=== PATIENT | male | born 1945 | race Caucasian/White ===

== ENCOUNTER 2016-12-26 08:21 | Observation (INO) ==
[2016-12-26] MEDS ORDERED: SODIUM CHLORIDE 0.9% 2,000 ML IV STA (08:45)
--- NOTE | 2016-12-26 08:48 | Emergency Department Note ---
Arrival - Arrival Chief Complaint: Syncope Stated Complaint: Vomiting, Fainting (chemo patient) ED Nursing Triage Note: FAMILY C/O SYNCOPAL EPISODE WHILE WORKING IN THE YARD THIS MORNING. PT BECAME DIAPHORETIC WITH NAUSEA AND VOMITING. PT BEGAN CHEMO TREATMENTS THIS WEEK WITH DR HAMMER. Mode of Arrival: Wheelchair Time Seen by Provider: 12/26/16 08:45 - History of Present Illness HPI Narrative: Patient is a 71-year-old white male who became very weak while walking around in his yard this morning. Patient broke out in a sweat and had a near syncopal episode. He took everyone in the family getting him up get him in the car and getting here to the emergency room. Patient states he has not had any pain or discomfort anywhere. He has not had any fever or chills. He vomited multiple times but there is no history of hematemesis and is not had any melena. Patient does have a history of CLL and last week 8 chemotherapy because of a decline in his hematocrit and hemoglobin. He had a wonderful day yesterday and states he did not have any trouble at all. Patient states he got nauseated early this morning. He denies any chest pain and is not perceived any palpitations. He is diffusely weak and denies any lateralizing symptoms whatsoever. Does not have any heartburn, indigestion or abdominal pain. Allergies/Adverse Reactions: Allergies Allergy/AdvReac Type Severity Reaction Status Date / Time No Known Allergies Allergy Verified 12/26/16 08:29 Review of System - Review of System Constitutional: Present: diaphoresis, weakness. Absent: chills, fever Eyes: Absent: pain, vision change Head/Ears/Nose/Throat: Absent: earache, nasal drainage Respiratory: Absent: cough, wheezing Cardiovascular: Absent: chest pain, palpitations, dyspnea on exertion Gastrointestinal: Present: nausea, vomiting. Absent: diarrhea, hematemesis, melena, hematochezia Genitourinary male: Absent: dysuria, frequency, hematuria Musculoskeletal: Absent: back pain, neck pain Skin: Absent: rash, lesions Neurological: Present: weakness (Diffuse). Absent: headache, numbness, paresthesias, confusion Psychiatric: Absent: anxiety, depression Endocrine: Present: fatigue. Absent: polydipsia, polyuria Hematological/Lymphatic: Absent: easy bleeding, easy bruising Medical,Surgical,& Family Hx - Medical History Other: History of: Cancer (CLL) - Surgical History Surgical History: noncontributory - Family History Family History: noncontributory - Social History Smoking Status: Never smoker Frequency of Alcohol Use: None Type of Drug Use: None Exam Vital Signs: Vital Signs Temperature 96.0 F L 12/26/16 08:24 Pulse Rate 55 L 12/26/16 08:54 Respiratory Rate 20 12/26/16 08:54 Blood Pressure 91/60 12/26/16 08:54 O2 Sat by Pulse Oximetry 95 12/26/16 08:54 - General General appearance: alert, in distress (Patient is pale and slightly diaphoretic ) - Head Head exam: Present: normocephalic - Eye Eye exam: Present: PERRL, EOMI - ENT ENT exam: Present: normal exam, normal oropharynx, mucous membranes moist - Neck Neck exam: Present: normal inspection, full ROM - Chest Chest inspection: Present: normal inspection - Respiratory Respiratory exam: Present: normal lung sounds bilaterally. Absent: rales, respiratory distress - Cardiovascular Cardiovascular exam: Present: regular rate, normal rhythm, normal heart sounds. Absent: murmur - Abdominal Exam Abdominal exam: Present: soft, normal bowel sounds. Absent: tenderness - Extremities Exam Extremities exam: Present: normal inspection, full ROM. Absent: tenderness - Back Exam Back exam: Present: normal inspection, full ROM - Neurological Exam Neurological exam: Present: alert, oriented X3, CN II-XII intact. Absent: motor sensory deficit - Psychiatric Psychiatric exam: Present: normal affect - Skin Skin exam: Present: diaphoresis Course Course Narrative: Patient's clinical presentation, laboratory and radiograph findings were discussed with Dr. Hammer. Patient be admitted to his services. Blood cultures were obtained. Results - Labs CBC & BMP: 12/26/16 08:58 12/26/16 08:58 Lab Results: I have reviewed the patients labs - EKG EKG results: interpreted by MADINA, no acute changes EKG shows: bradycardia (Sinus bradycardia 55 bpm) - Diagnostic Findings Procedure: Chest x-ray: report reviewed by me (Bibasilar atelectasis) Disposition Clinical Impression: Near syncope, Hypotension Case discussed with: patient, patient's family Disposition: Still a Patient Condition: Stable Time of Disposition: 09:56
--- NOTE | 2016-12-26 08:53 | EKG Report ---
Stationary ECG Study [facility] ER Test Date: 12/26/2016 8:51:52 AM Pat Name: VIRGINIA MORALES Department: Room: Gender: M Healthcare Social Worker: : 1945 Requested by: Frankie Tee Order Number: [id number] Elizabeth MD: FABIO MONCADA Intervals [place] Rate: 55 P: 35 MS: 169 QRS: 54 QRSD: 101 T: 53 QT: 475 QTc: 464 Interpretive Statements SINUS RHYTHM PROLONGED QT INTERVAL Electronically Signed On 12-26-16 10:10:21 CDT by FABIO MONCADA [email or web address]
--- NOTE | 2016-12-26 08:59 | XRay Report ---
Portable chest Date: 12/26/2016 Clinical history: Shortness of breath Comparison: None Technique: Portable AP sitting chest Findings: The heart is borderline in size with calcification in aortic knob. Expiratory chest with atelectasis at the left lung base. Degenerative changes are noted. Impression: Limited expiratory chest with atelectasis at the left lung base. The heart is borderline in size. PROCEDURE INTERPRETED AT [facility] DEPARTMENT OF RADIOLOGY Final Report Signed by: Dr. Sherrell Webber
[2016-12-26 09:02] LABS: Basophils % 0.5 % (0.0-0.8); Eosinophils % 0.5 % (0.00-10.9); Hemoglobin 10.3 GM/DL (14.0-18.0); Immature Granulocytes % 0.5 %; Immature Granulocytes Absolute 0.01 #; Lymphocytes # 1.1 10*3/uL (1.4-4.0); Lymphocytes % 52.7 % (21.2-54.2); Mean Corpuscular HGB Conc 34.3 GM/DL (32-36); Mean Corpuscular Hemoglobin 34 PG (27-34); Mean Corpuscular Volume 100.3 FL (87-102); Mean Platelet Volume 9.6 FL (9.6-12.0); Monocytes # 0.1 10*3/uL (0.11-0.8); Monocytes % 2.9 % (1.7-12.7); Neutrophils # 0.9 10*3/uL (1.4-7.4); Neutrophils % 42.9 % (38.7-73.9); Red Blood Count 2.99 MC/CUMM (3.8-5.5); Red Cell Distribution Width 15.7 % (9.3-17.3); White Blood Count 2.1 T/CUMM (4-12)
[2016-12-26 09:04] LABS: Platelet Count 54 T/CUMM (130-400)
[2016-12-26 09:19] LABS: Hypochromasia 1+; Platelet Estimate Decreased
[2016-12-26 09:41] LABS: Alanine Aminotransferase 25 U/L (16-61); Albumin 3.4 G/DL (3.4-5.0); Alkaline Phosphatase 84 U/L (45-117); Aspartate Amino Transferase 26 U/L (0-37); Blood Urea Nitrogen 28 MG/DL (7-18); Calcium 8.6 MG/DL (8.5-10.1); Glucose 158 MG/DL (74-106); Osmolality,Calculated 287.4 MOS/KG (273-304); Potassium 3.7 MMOL/L (3.5-5.1); Sodium 140 MMOL/L (136-145); Total Protein 7.4 G/DL (6.4-8.3); Troponin I Only < 0.015 NG/ML (0.00-0.045)
[2016-12-26] MEDS ORDERED: guaiFENesin 200 MG/10 ML UDCUP PO PRN (09:56)
[2016-12-26] MEDS ORDERED: diphenhydrAMINE CAP 25 MG CAPSULE PO PRN (09:56)
[2016-12-26] MEDS ORDERED: ACETAMINOPHEN 325 MG TABLET PO PRN (09:56)
[2016-12-26] MEDS ORDERED: ALUMINUM/MAGNES/SIMETH MAX STR 30 ML UDCUP PO PRN (09:56)
[2016-12-26] MEDS ORDERED: MAGNESIUM HYDROXIDE SUSP 30 ML UDCUP PO PRN (09:56)
[2016-12-26] MEDS ORDERED: chlorproMAZINE INJ 50 MG in SODIUM CHLORIDE 0.9% 100 ML IV PRN (09:56)
[2016-12-26] MEDS ORDERED: ONDANSETRON 4 MG/2 ML VIAL IV PRN (09:56)
[2016-12-26] MEDS ORDERED: chlorproMAZINE 25 MG TABLET PO PRN (09:56)
[2016-12-26] MEDS ORDERED: chlorproMAZINE INJ 25 MG in SODIUM CHLORIDE 0.9% 100 ML IV PRN (09:56)
[2016-12-26] MEDS ORDERED: LOPERAMIDE 2 MG CAPSULE PO PRN ×2 (09:56)
[2016-12-26] MEDS ORDERED: TEMAZEPAM 7.5 MG CAPSULE PO PRN (09:56)
[2016-12-26] MEDS ORDERED: MYLANTA/LIDO VISC 2:1 300 ML BOTTLE SWISH/SWAL PRN (09:56)
[2016-12-26] MEDS ORDERED: PROMETHAZINE INJ 25 MG in SODIUM CHLORIDE 0.9% 50 ML IV PRN (09:56)
[2016-12-26] MEDS ORDERED: BENZTROPINE 2 MG/2 ML AMP IV PRN (09:56)
[2016-12-26] MEDS ORDERED: MYLANTA/LIDO VISC 2:1 300 ML BOTTLE SWISH/SPIT PRN (09:56)
[2016-12-26] MEDS ORDERED: LACTULOSE 20 GM/30 ML UDCUP PO PRN (09:56)
[2016-12-26] MEDS ORDERED: ONDANSETRON 4 MG/2 ML VIAL IV STA (10:15)
[2016-12-26] MEDS ORDERED: ONDANSETRON 4 MG/2 ML VIAL ONE (10:17)
[2016-12-26 10:32] LABS: Magnesium 2.1 MG/DL (1.8-2.4); Uric Acid 5.5 MG/DL (3.5-7.2)
[2016-12-26 10:40] LABS: Apearance,Urine CLEAR (Clear); Bilirubin,Urine Negative (Negative); Blood, Urine Negative (Negative); Glucose,Urine (UA) Negative (Negative); Hyaline Casts,Urine 1 /LPF (0-3); Ketones,Urine Negative (Negative); Mucus,Urine Occasional /LPF (Occasional); Nitrite,Urine Negative (Negative); Protein,Urine Negative; RBC,Urine <1 /HPF (0-4); Urine Color Yellow (Yellow); Urine Urobilinogen < 2.0 EU/DL (0.2-1.0); WBC,Urine <1 /HPF (0-6)
[2016-12-26] MEDS: SODIUM CHLORIDE 0.9% 1,000 ML IV SCH ×2 (11:26→19:51)
[2016-12-26] MEDS: cefTRIAXone 1,000 MG in SODIUM CHLORIDE 0.9% 100 ML IV SCH (14:06)
[2016-12-27 02:25] LABS: Basophils % 0.8 % (0.0-0.8); Eosinophils % 1.5 % (0.00-10.9); Hematocrit 24.1 VOL% (42.0-52.0); Hemoglobin 8.2 GM/DL (14.0-18.0); Lymphocytes # 0.8 10*3/uL (1.4-4.0); Lymphocytes % 58.3 % (21.2-54.2); Mean Corpuscular Hemoglobin 34 PG (27-34); Mean Corpuscular Volume 100.8 FL (87-102); Mean Platelet Volume 10.3 FL (9.6-12.0); Monocytes # 0.1 10*3/uL (0.11-0.8); Monocytes % 3.8 % (1.7-12.7); Neutrophils # 0.5 10*3/uL (1.4-7.4); Neutrophils % 35.6 % (38.7-73.9); Platelet Count 43 T/CUMM (130-400); Red Blood Count 2.39 MC/CUMM (3.8-5.5); Red Cell Distribution Width 15.7 % (9.3-17.3); White Blood Count 1.3 T/CUMM (4-12)
[2016-12-27 02:53] LABS: Albumin 2.6 G/DL (3.4-5.0); Bilirubin,Total 1.2 MG/DL (0.2-1.0); Calcium 8.1 MG/DL (8.5-10.1); Osmolality,Calculated 289.8 MOS/KG (273-304); Total Protein 5.8 G/DL (6.4-8.3)
[2016-12-27 04:04] LABS: Lymphocytes 54 % (20-55); Myelocytes 6 %; Segmented Neutrophils 40 % (50-85); Total Cells Counted 100
[2016-12-27 04:05] LABS: Anisocytosis 1+; Platelet Estimate Decreased; Tear Drop Cells 1+
[2016-12-27] MEDS ORDERED: POLYVINYL ALCOHOL 1.4% OPH SOLN 15 ML BOTTLE BOTH EYES PRN (07:42)
[2016-12-27] MEDS: SODIUM CHLORIDE 0.9% 1,000 ML IV SCH (07:54)
[2016-12-27] MEDS ORDERED: PANTOPRAZOLE 40 MG TABLET PO SCH ×2 (09:00→21:00)
[2016-12-27] MEDS ORDERED: ONDANSETRON 4 MG TABLET PO PRN (11:11)
--- NOTE | 2016-12-27 11:14 | Oncology History&Physical ---
Assessment and Plan (1) CLL (chronic lymphocytic leukemia) Status: Acute Assessment and plan: We will monitor the patient's hemoglobin and platelet count overnight. Continue Rocephin empirically at this time. Continue telemetry monitoring. Probable discharge home tomorrow with close outpatient follow-up Current Visit: Yes History of Present Illness Chief complaint: Syncopal episode History of present illness: Mr. Guevara is a 71 year old male With chronic lymphocytic leukemia diagnosed approximately 2007. The patient has been followed expectantly for close to 9 years now. Because of the declining hemoglobin and rising white blood count therapy was instituted last week with monoclonal antibody gazyva. The patient received a test dose on Wednesday and the remainder of his dose was given Wednesday over several hours. He reported good intake orally on Wednesday. He did have a little very large night sweats Wednesday night and became weak and pale Wednesday morning. This occurred while he was in the process of doing some light outdoor activities. He was brought to the ER and given IV fluids. He did appear volume contracted as it took several liters of fluid to initiate urine output. His micro is negative at this time. He is neutropenic likely related to last week's therapy. His lymphocyte count has came down significantly and he does not demonstrate any evidence of tumor lysis syndrome at this time. He feels better today and has been able to ambulate in the room without symptoms of orthostasis. His pulse was noted to be in the 40s initially but is now back to the mid 50s which she states is his baseline. Home Medications Medication Instructions Recorded Confirmed Type Allopurinol [Allopurinol] 300 mg PO BEDTIME 12/26/16 12/26/16 History Esomeprazole Magnesium [Nexium] 40 mg PO BEDTIME 12/26/16 12/26/16 History Ondansetron HCl [Ondansetron HCl] 8 mg PO Q6H PRN 12/26/16 12/26/16 History Allergies Allergy/AdvReac Type Severity Reaction Status Date / Time No Known Allergies Allergy Verified 12/26/16 08:29 Medical,Surgical,& Family Hx - Medical History Gastrointestinal: History of: GERD Other: History of: Cancer (CLL) - Family History Family History: Reports;: Family Heart Disease - Social History Smoking Status: Never smoker Frequency of Alcohol Use: None Type of Drug Use: None - EENT Eye: Absent: blurry vision Ears: Absent: decreased hearing Nose, mouth and throat: Absent: dysphagia, epistaxis - Cardiovascular Cardiovascular ROS IM: Absent: chest pain - Respiratory Respiratory: Absent: cough, hemoptysis - Gastrointestinal Gastrointestinal: Absent: cramping, diarrhea - Genitourinary Genitourinary ROS male: Absent: dysuria, hematuria - Neurological Neurological ROS: Absent: behavioral changes, headache(s) Exam - Constitutional Vitals: Period Temp Pulse Resp BP Sys/Gutierrez Pulse Ox Last 24 Hr 97.2 F-98.6 F 49-68 17-20 117-134/56-71 95-99 General appearance: no acute distress, over weight - Head Head Exam: Present: normocephalic, atraumatic - Eye Eye Exam: Present: EOMI. Absent: conjunctival injection, periorbital swelling, scleral icterus Pupils: Present: PERRL - ENT ENT exam: Present: normal external ear exam - Neck Neck exam: Present: normal inspection. Absent: lymphadenopathy - Respiratory Respiratory exam: Present: CTAB. Absent: accessory muscle use, chest wall tenderness - Cardiovascular Cardiovascular exam: Present: bradycardia, RRR - GI/Abdominal GI/Abdominal exam: Absent: ascites, distended, firm, guarding - Neurological Exam Neurological exam: Present: alert, oriented X3 - Psychiatric Psychiatric exam: Present: normal affect, normal mood - Skin Skin exam: Present: warm, dry Results - Labs CBC & BMP: 12/27/16 01:39 12/27/16 01:39
[2016-12-27] MEDS: cefTRIAXone 1,000 MG in SODIUM CHLORIDE 0.9% 100 ML IV SCH (13:52)
[2016-12-27] MEDS ORDERED: ALLOPURINOL 300 MG TABLET PO SCH (21:00)
[2016-12-28 04:26] LABS: Eosinophils % 1.7 % (0.00-10.9); Hematocrit 23.6 VOL% (42.0-52.0); Hemoglobin 8.1 GM/DL (14.0-18.0); Lymphocytes # 0.6 10*3/uL (1.4-4.0); Lymphocytes % 47.8 % (21.2-54.2); Mean Corpuscular HGB Conc 34.3 GM/DL (32-36); Mean Corpuscular Hemoglobin 34 PG (27-34); Mean Corpuscular Volume 99.2 FL (87-102); Mean Platelet Volume 9.2 FL (9.6-12.0); Monocytes # 0.1 10*3/uL (0.11-0.8); Monocytes % 6.1 % (1.7-12.7); Neutrophils # 0.5 10*3/uL (1.4-7.4); Neutrophils % 44.4 % (38.7-73.9); Platelet Count 44 T/CUMM (130-400); Red Blood Count 2.38 MC/CUMM (3.8-5.5); Red Cell Distribution Width 15.8 % (9.3-17.3); White Blood Count 1.2 T/CUMM (4-12)
[2016-12-28 04:55] LABS: Albumin 2.8 G/DL (3.4-5.0); Bilirubin,Total 1.3 MG/DL (0.2-1.0); Calcium 8.2 MG/DL (8.5-10.1); Potassium 3.7 MMOL/L (3.5-5.1); Total Protein 5.9 G/DL (6.4-8.3)
[2016-12-28 05:04] LABS: Atypical Lymphocytes Few; Band Neutrophils 3 % (0-10); Eosinophils 3 % (0-10); Hypochromasia 1+; Lymphocytes 43 % (20-55); Ovalocytes Slight; Platelet Estimate Decreased; Segmented Neutrophils 50 % (50-85); Total Cells Counted 100
[2016-12-28 05:05] LABS: Microcytosis Slight
[2016-12-28] MEDS ORDERED: SODIUM CHLORIDE 0.9% 250 ML IV PRN (08:27)
--- NOTE | 2016-12-28 08:27 | Discharge Summary ---
Hospital Course - Hospital Course Hospital Course: Patient was CLL who recently initiated chemotherapy admitted with a syncopal episode. This appeared vasovagal in appearance. The patient's pulse is now normal. His anemia has worsened and will be transfused today for hematocrit of 23. This seems to have been affected by his monoclonal antibody therapy. We are also continue to monitor his platelet count. He is stable for discharge home today without fever or chills. He has ambulated in the hallway and appears nontoxic. Home medications are unchanged. Follow-up is arranged in 48 hours at the office Diagnosis - Discharge Diagnosis (1) CLL (chronic lymphocytic leukemia) Status: Acute Discharge Plan - Discharge Medications No Action Esomeprazole Magnesium [Nexium] 40 mg PO BEDTIME Ondansetron HCl [Ondansetron HCl] 8 mg PO Q6H PRN PRN Reason: Nausea/Vomiting Allopurinol [Allopurinol] 300 mg PO BEDTIME - Follow Up or Referral - Forms/Instructions Exam - Constitutional Vitals: Period Temp Pulse Resp BP Sys/Gutierrez Pulse Ox Last 24 Hr 98 F-99.4 F 62-86 16-20 112-128/59-68 96-99 Discharge Results Procedures and tests throughout hospitalization: Pending Orders 12/26/16 08:58 Blood Culture Stat 12/26/16 09:56 Urinalysis Routine 12/26/16 09:59 Urine Culture Stat 12/29/16 04:00 CBC [Comp Blood Count Auto Diff] IN AM CMP [Comprehensive Metabolic Panel] IN AM Labs on day of discharge: Labs from last 24 hours 12/28/16 12/28/16 12/28/16 04:00 04:00 04:00 WBC 1.2 L RBC 2.38 L Hgb 8.1 L Hct 23.6 L MCV 99.2 MCH 34 MCHC 34.3 RDW 15.8 Plt Count 44 L MPV 9.2 L Neut % (Auto) 44.4 Lymph % (Auto) 47.8 [place] % (Auto) 6.1 Eos % (Auto) 1.7 Baso % (Auto) 0.0 Neut # (Auto) 0.5 L Lymph # (Auto) 0.6 L [place] # (Auto) 0.1 L Eos # (Auto) 0.0 Baso # (Auto) 0.0 Total Counted 100 Immature Gran % 0.0 Nucleated RBC % 0.0 Immature Gran # 0.00 Segmented Neutrophils 50 Band Neutrophils 3 Lymphocytes 43 Monocytes 1 L Eosinophils 3 Nucleated RBCs # 0.00 Atypical Lymphocytes Few Platelet Estimate Decreased Hypochromasia 1+ Microcytosis Slight Ovalocytes Slight Morphology Comment Sodium 143 Potassium 3.7 Chloride 110 H Carbon Dioxide 28 Anion Gap 8.7 BUN 21 H Creatinine 1.20 GFR Calculation 81 BUN/Creatinine Ratio 17.00 Glucose 100 Calculated Osmolality 287.0 Calcium 8.2 L Total Bilirubin 1.30 H AST 19 ALT 21 Alkaline Phosphatase 81 Lactate Dehydrogenase 200 Total Protein 5.9 L Albumin 2.8 L Globulin 3.1 Albumin/Globulin Ratio 0.9 L Preliminary micro results at discharge 12/26/16 08:58 Blood Culture - Preliminary Blood No growth at 1 day 12/26/16 08:58 Blood Culture - Preliminary Blood No growth at 1 day DS: Provider Date of admission: 12/26/16 09:56 Primary care physician: Dima Baldwin MD Attending physician on admission: Jeff Hammer MD Consults: 12/26/16 11:51 Consult to Dietitian [CONS] Routine Reason for Dietitian: Dietary Consult Discharging clinician: Jeff Hammer MD
[2016-12-28 14:01] VITALS: BP 123/69
== END 2016-12-28 14:30 | disposition home or self-care (01) ==
LOC: N.EDINP 08:21 → N.ED 08:21 → N.EDINP 10:47 → N.4E 10:53
PROVIDERS: ADMIT Specialist; ATTEND Specialist

== ENCOUNTER 2017-01-19 04:00 | Inpatient (IN) ==
[2017-01-19] MEDS ORDERED: SODIUM CHLORIDE 0.9% 1,000 ML IV STA (04:10)
[2017-01-19] MEDS ORDERED: ACETAMINOPHEN 500 MG TABLET PO STA (04:11)
[2017-01-19] MEDS ORDERED: ACETAMINOPHEN 500 MG TABLET ONE (04:16)
[2017-01-19 04:33] LABS: Hematocrit 23.4 VOL% (42.0-52.0); Immature Granulocytes % 0.7 %; Immature Granulocytes Absolute 0.01 #; Lymphocytes # 0.2 10*3/uL (1.4-4.0); Lymphocytes % 10.9 % (21.2-54.2); Mean Corpuscular HGB Conc 34.2 GM/DL (32-36); Mean Corpuscular Hemoglobin 34 PG (27-34); Mean Corpuscular Volume 98.3 FL (87-102); Mean Platelet Volume 9.7 FL (9.6-12.0); Monocytes # 0.2 10*3/uL (0.11-0.8); Monocytes % 10.2 % (1.7-12.7); Neutrophils # 1.2 10*3/uL (1.4-7.4); Neutrophils % 78.2 % (38.7-73.9); Platelet Count 80 T/CUMM (130-400); Red Blood Count 2.38 MC/CUMM (3.8-5.5); Red Cell Distribution Width 18.8 % (9.3-17.3); White Blood Count 1.5 T/CUMM (4-12)
[2017-01-19 04:51] LABS: Albumin 2.6 G/DL (3.4-5.0); Bilirubin,Total 0.6 MG/DL (0.2-1.0); Calcium 7.1 MG/DL (8.5-10.1); Osmolality,Calculated 290.7 MOS/KG (273-304); Potassium 3.6 MMOL/L (3.5-5.1); Total Protein 5.4 G/DL (6.4-8.3)
[2017-01-19 04:57] LABS: Hypochromasia Slight; Platelet Estimate Decreased
[2017-01-19 04:58] LABS: Ovalocytes Few
[2017-01-19] MEDS ORDERED: traMADol 50 MG TABLET PO PRN (05:03)
[2017-01-19] MEDS ORDERED: PROMETHAZINE INJ 25 MG in SODIUM CHLORIDE 0.9% 50 ML IV PRN (05:03)
[2017-01-19] MEDS ORDERED: MEROPENEM 1,000 MG in SODIUM CHLORIDE 0.9% 100 ML IV STA (05:03)
[2017-01-19] MEDS ORDERED: ALPRAZolam 0.25 MG TABLET PO PRN (05:03)
[2017-01-19] MEDS ORDERED: chlorproMAZINE INJ 25 MG in SODIUM CHLORIDE 0.9% 100 ML IV PRN (05:03)
[2017-01-19] MEDS ORDERED: LACTULOSE 20 GM/30 ML UDCUP PO PRN (05:03)
[2017-01-19] MEDS ORDERED: LOPERAMIDE 2 MG CAPSULE PO PRN ×2 (05:03)
[2017-01-19] MEDS ORDERED: TEMAZEPAM 7.5 MG CAPSULE PO PRN (05:03)
[2017-01-19] MEDS ORDERED: MYLANTA/LIDO VISC 2:1 300 ML BOTTLE SWISH/SPIT PRN (05:03)
[2017-01-19] MEDS ORDERED: ONDANSETRON 4 MG/2 ML VIAL IV PRN (05:03)
[2017-01-19] MEDS ORDERED: guaiFENesin 200 MG/10 ML UDCUP PO PRN (05:03)
[2017-01-19] MEDS ORDERED: diphenhydrAMINE CAP 25 MG CAPSULE PO PRN (05:03)
[2017-01-19] MEDS ORDERED: VANCOMYCIN INJ 1,000 MG in SODIUM CHLORIDE 0.9% 250 ML IV STA (05:03)
[2017-01-19] MEDS ORDERED: ALUMINUM/MAGNES/SIMETH MAX STR 30 ML UDCUP PO PRN (05:03)
[2017-01-19] MEDS ORDERED: MAGNESIUM HYDROXIDE SUSP 30 ML UDCUP PO PRN (05:03)
[2017-01-19] MEDS ORDERED: chlorproMAZINE 25 MG TABLET PO PRN (05:03)
[2017-01-19] MEDS ORDERED: chlorproMAZINE INJ 50 MG in SODIUM CHLORIDE 0.9% 100 ML IV PRN (05:03)
[2017-01-19] MEDS ORDERED: BENZTROPINE 2 MG/2 ML AMP IV PRN (05:03)
[2017-01-19] MEDS ORDERED: MYLANTA/LIDO VISC 2:1 300 ML BOTTLE SWISH/SWAL PRN (05:03)
--- NOTE | 2017-01-19 05:07 | Emergency Department Note ---
IBraxton Emily, am scribing for, and in the presence of, Hernandez Mason MD 04: 16. IIsabella Kevin Lee, MD, personally performed the services described in this documentation, ascribed by Veronica Limon in my presence, and it is both accurate and complete 428 . Arrival - Arrival Stated Complaint: fever Limitations: No Limitations Source: Patient - History of Present Illness HPI Narrative: Pt is a 71 y/o male who came to ED with c/o fever that spiked this morning. Pt was told by Dr. Hammer to come to ED immediately if fever got over 102 at home. He was also having some chills. Pt had last chemo tx (for CLL) on January 09 and was going to have another on January 10, but pt states he collapsed and was admitted for 2 days. Pt reports eating a lot more food than he should have yesterday, like soup and cornbread with apple pie and ice cream. He notes having no BMs yet, just urinating. He states having little output, unless he can go outside. Onset (ago): hour(s) Consistency: constant Severity: mild, moderate Severity scale (1-10): 4 Quality: aching Allergies/Adverse Reactions: Allergies Allergy/AdvReac Type Severity Reaction Status Date / Time No Known Allergies Allergy Verified 12/26/16 08:29 Home Medications: Home Medications Medication Instructions Recorded Confirmed Type Allopurinol [Allopurinol] 300 mg PO BEDTIME 12/26/16 01/19/17 History Esomeprazole Magnesium [Nexium] 40 mg PO BEDTIME 12/26/16 01/19/17 History Ondansetron HCl [Ondansetron HCl] 8 mg PO Q6H PRN 12/26/16 01/19/17 History Review of System - Review of System 12 point system: reviewed and no additional remarkable complaints except as stated - Review of System Constitutional: Present: chills, fever. Absent: weakness Respiratory: Absent: respiratory distress Cardiovascular: Absent: chest pain Gastrointestinal: Absent: abdominal pain, nausea, vomiting Genitourinary male: Present: other (little output). Absent: hematuria Musculoskeletal: Absent: arm pain, back pain, leg pain, neck pain Skin: Absent: rash Neurological: Absent: headache Psychiatric: Absent: anxiety Medical,Surgical,& Family Hx - Medical History Gastrointestinal: History of: GERD Other: History of: Cancer (CLL) - Family History Family History: Reports;: Family Heart Disease - Social History Smoking Status: Never smoker Functional capacity: independent ambulation Exam Vital Signs: Vital Signs Temperature 101.6 F H 01/19/17 04:00 Pulse Rate 108 H 01/19/17 04:00 Respiratory Rate 16 01/19/17 04:00 Blood Pressure 147/69 01/19/17 04:00 O2 Sat by Pulse Oximetry 98 01/19/17 04:00 - General General appearance: alert, in no apparent distress - Head Head exam: Present: atraumatic, normocephalic - Eye Eye exam: Present: PERRL, EOMI - ENT ENT exam: Present: mucous membranes moist. Absent: mucous membranes dry - Neck Neck exam: Present: full ROM. Absent: tenderness - Chest Chest inspection: Present: symmetric chest wall rise. Absent: tenderness - Respiratory Respiratory exam: Present: normal lung sounds bilaterally. Absent: respiratory distress - Cardiovascular Cardiovascular exam: Present: regular rate, normal rhythm, normal heart sounds - Extremities Exam Extremities exam: Present: full ROM. Absent: tenderness, pedal edema - Neurological Exam Neurological exam: Present: alert, oriented X3, CN II-XII intact. Absent: motor sensory deficit - Psychiatric Psychiatric exam: Present: normal affect, normal mood - Skin Skin exam: Present: warm, dry Results - Labs CBC & BMP: 01/19/17 04:20 01/19/17 04:20 Lab Results: I have reviewed the patients labs Labs: Microbiology 01/19/17 04:28 Throat Group A Streptococcus Rapid Screen - Final Negative for Grp A Strep Ag 01/19/17 04:28 Nasal Aspirate Influenza Types A,B Antigen (JAMES) - Final Negative for Influenza A Ag Negative for Influenza B Ag Laboratory Tests 01/19/17 01/19/17 04:20 04:20 WBC 1.5 L RBC 2.38 L Hgb 8.0 L Hct 23.4 L RDW 18.8 H Plt Count 80 L Neut % (Auto) 78.2 H Lymph % (Auto) 10.9 L Neut # (Auto) 1.2 L Lymph # (Auto) 0.2 L Platelet Estimate Decreased Hypochromasia Slight Ovalocytes Few Sodium 145 Potassium 3.6 Chloride 115 H BUN 21 H Calcium 7.1 L Total Protein 5.4 L Albumin 2.6 L Albumin/Globulin Ratio 0.9 L - Diagnostic Findings Procedure: Chest x-ray: image reviewed by me (no acute) Disposition Clinical Impression: Neutropenic fever Case discussed with: patient Disposition: Still a Patient Condition: Stable
[2017-01-19] MEDS ORDERED: MEROPENEM 1,000 MG VIAL IV ONE (05:10)
[2017-01-19] MEDS ORDERED: SODIUM CHLORIDE 0.9% 100 ML IV ONE (05:13)
[2017-01-19 05:29] LABS: Apearance,Urine CLEAR (Clear); Bilirubin,Urine Negative (Negative); Blood, Urine Negative (Negative); Glucose,Urine (UA) Negative (Negative); Ketones,Urine Negative (Negative); Mucus,Urine Occasional /LPF (Occasional); Nitrite,Urine Negative (Negative); Protein,Urine Negative; RBC,Urine 1 /HPF (0-4); Squamous Epithelial Cell,Urine Occasional /HPF (0-10); Urine Color Yellow (Yellow); Urine Specific Gravity 1.014 (1.001-1.035); Urine Urobilinogen < 2.0 EU/DL (0.2-1.0); WBC,Urine 1 /HPF (0-6)
[2017-01-19] MEDS ORDERED: VANCOMYCIN 1,000 MG VIAL ONE (05:45)
[2017-01-19] MEDS: DEXTROSE 5% NACL 0.45% 1,000 ML IV SCH ×2 (06:31→21:48)
[2017-01-19 06:58] LABS: Eosinophils % 0.4 % (0.00-10.9); Hematocrit 21.9 VOL% (42.0-52.0); Hemoglobin 7.6 GM/DL (14.0-18.0); Immature Granulocytes % 1.7 %; Immature Granulocytes Absolute 0.04 #; Lymphocytes # 0.2 10*3/uL (1.4-4.0); Lymphocytes % 7.4 % (21.2-54.2); Mean Corpuscular HGB Conc 34.7 GM/DL (32-36); Mean Corpuscular Hemoglobin 34 PG (27-34); Mean Corpuscular Volume 97.8 FL (87-102); Mean Platelet Volume 9.5 FL (9.6-12.0); Monocytes # 0.3 10*3/uL (0.11-0.8); Monocytes % 13.9 % (1.7-12.7); Neutrophils # 1.8 10*3/uL (1.4-7.4); Neutrophils % 76.6 % (38.7-73.9); Red Blood Count 2.24 MC/CUMM (3.8-5.5); Red Cell Distribution Width 18.7 % (9.3-17.3)
[2017-01-19 07:05] LABS: Platelet Count 71 T/CUMM (130-400); White Blood Count 2.3 T/CUMM (4-12)
--- NOTE | 2017-01-19 07:33 | XRay Report ---
History is short of breath and fever Comparison 12/26/2016 The heart is normal in size. The lungs are clear. Impression: No acute pathology seen. PROCEDURE INTERPRETED AT [facility] DEPARTMENT OF RADIOLOGY Final Report Signed by: Dr. Tiffanie Shafer
[2017-01-19 07:36] LABS: Band Neutrophils 9 % (0-10); Eosinophils 2 % (0-10); Lymphocytes 7 % (20-55); Segmented Neutrophils 74 % (50-85); Total Cells Counted 100
[2017-01-19 07:37] LABS: Anisocytosis 1+; Hypochromasia 1+
[2017-01-19 07:38] LABS: Microcytosis 1+; Ovalocytes Slight; Platelet Estimate Decreased
[2017-01-19 07:45] LABS: Albumin 2.8 G/DL (3.4-5.0); Bilirubin,Total 0.7 MG/DL (0.2-1.0); Calcium 7.7 MG/DL (8.5-10.1); Magnesium 1.5 MG/DL (1.8-2.4); Osmolality,Calculated 283.5 MOS/KG (273-304); Potassium 3.9 MMOL/L (3.5-5.1); Total Protein 5.8 G/DL (6.4-8.3)
[2017-01-19] MEDS ORDERED: MAGNESIUM SULF RIDER 4 GM in PREMIX 1 EACH IV ONE (09:26)
[2017-01-19] MEDS ORDERED: SODIUM CHLORIDE 0.9% 250 ML IV PRN (09:29)
[2017-01-19] MEDS: PANTOPRAZOLE 40 MG TABLET PO SCH (09:58)
[2017-01-19] MEDS: FILGRASTIM-SNDZ 300 MCG/0.5 ML SYRINGE SUBCUT SCH (09:58)
[2017-01-19] MEDS: ENOXAPARIN 40 MG/0.4 ML SYRINGE SUBCUT SCH (09:58)
[2017-01-19 10:15] LABS: Uric Acid 5.9 MG/DL (3.5-7.2)
[2017-01-19] MEDS: ACETAMINOPHEN 325 MG TABLET PO PRN ×2 (14:18→18:57)
[2017-01-19] MEDS: MEROPENEM 1,000 MG in SODIUM CHLORIDE 0.9% 100 ML IV SCH ×2 (14:27→21:54)
--- NOTE | 2017-01-19 17:20 | Oncology History&Physical ---
Assessment and Plan (1) CLL (chronic lymphocytic leukemia) Status: Acute Assessment and plan: The patient will be covered with broad-spectrum antibiotics while awaiting blood and urine cultures. 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 A CT of the chest abdomen pelvis is scheduled for the a.m. and consideration will be given to rituximab treatment in the near future. Current Visit: No History of Present Illness Chief complaint: Fever History of present illness: Mr. Guevara is a 71 year old male With chronic lymphocytic leukemia diagnosed around 2008. The patient was followed up until recently with observation only. He has received 1 cycle of monoclonal antibody therapy with gives Kandy. He seems to have tolerated this poorly with leukopenia anemia and thrombocytopenia. His second and third doses have been delayed and was scheduled to begin his second month of treatment this week. He reported fever and chills last evening at home up to 102. He is admitted for antibiotics and further workup. 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 Home Medications Medication Instructions Recorded Confirmed Type Allopurinol [Allopurinol] 300 mg PO BEDTIME 12/26/16 01/19/17 History Esomeprazole Magnesium [Nexium] 40 mg PO BEDTIME 12/26/16 01/19/17 History Ondansetron HCl [Ondansetron HCl] 8 mg PO Q6H PRN 12/26/16 01/19/17 History Allergies Allergy/AdvReac Type Severity Reaction Status Date / Time No Known Allergies Allergy Verified 12/26/16 08:29 Medical,Surgical,& Family Hx - Medical History Cardio: No history of: Cardiovascular Problems Psychological: No history of: Violent Behavior HEENT: History of: HEENT Problems (sinusitis) Endocrine: No history of: Endocrine Problems Respiratory: No history of: Respiratory Problems Renal: No history of: Renal Problems Gastrointestinal: History of: GERD Musculoskeletal: No history of: Musculoskeletal Problems Hematology: No history of: Bleeding Problems Reproductive: No histroy: Reproductive Problems Other: History of: Cancer (CLL) - Family History Family History: Reports;: Family Heart Disease - Social History Smoking Status: Never smoker Frequency of Alcohol Use: None Type of Drug Use: None - Constitutional Constitutional: Present: fatigue, fever(s), malaise, weakness. Absent: increased appetite - EENT Eye: Absent: loss of vision Ears: Absent: ear discharge, ear pain Nose, mouth and throat: Absent: neck mass, neck pain, sore throat - Respiratory Respiratory: Absent: hemoptysis - Neurological Neurological ROS: Absent: abnormal speech, behavioral changes - Psychiatric Psychiatric General: Absent: anxiety, confusion Exam - Constitutional Vitals: Period Temp Pulse Resp BP Sys/Gutierrez Pulse Ox Last 24 Hr 98.4 F-102.4 F 85-108 16-20 87-147/46-69 91-100 General appearance: other (Appears uncomfortable) - Head Head Exam: Present: normocephalic, atraumatic - Eye Eye Exam: Present: EOMI. Absent: conjunctival injection, periorbital swelling, scleral icterus - ENT ENT exam: Present: normal external ear exam - Neck Neck exam: Present: normal inspection. Absent: lymphadenopathy, tenderness - Respiratory Respiratory exam: Present: CTAB. Absent: accessory muscle use, chest wall tenderness, wheezes - GI/Abdominal GI/Abdominal exam: Absent: ascites, distended, firm, guarding - Extremities Exam Extremities exam: Absent: edema - Neurological Exam Neurological exam: Present: alert, oriented X3, CN II-XII intact - Psychiatric Psychiatric exam: Present: normal affect, normal mood - Skin Skin exam: Present: warm, dry Results - Labs CBC & BMP: 01/19/17 06:49 01/19/17 06:49
[2017-01-19] MEDS: methylPREDNISolone SOD SUC 125 MG/2 ML VIAL IV SCH (18:58)
[2017-01-19] MEDS: FOLIC ACID 1 MG TABLET PO SCH (21:45)
[2017-01-20 02:21] LABS: Basophils % 0.3 % (0.0-0.8); Hematocrit 26.1 VOL% (42.0-52.0); Immature Granulocytes % 4.4 %; Immature Granulocytes Absolute 0.17 #; Lymphocytes # 0.5 10*3/uL (1.4-4.0); Mean Corpuscular HGB Conc 34.5 GM/DL (32-36); Mean Corpuscular Hemoglobin 33 PG (27-34); Mean Platelet Volume 9.6 FL (9.6-12.0); Monocytes # 0.2 10*3/uL (0.11-0.8); Monocytes % 5.2 % (1.7-12.7); Neutrophils % 78.1 % (38.7-73.9); Platelet Count 74 T/CUMM (130-400); Red Blood Count 2.72 MC/CUMM (3.8-5.5); Red Cell Distribution Width 19.5 % (9.3-17.3); White Blood Count 3.8 T/CUMM (4-12)
[2017-01-20 03:25] LABS: Acanthocytes Few; Band Neutrophils 23 % (0-10); Hypochromasia 2+; Lymphocytes 8 % (20-55); Ovalocytes Few; Platelet Estimate Decreased; Segmented Neutrophils 64 % (50-85); Total Cells Counted 100
[2017-01-20] MEDS: methylPREDNISolone SOD SUC 125 MG/2 ML VIAL IV SCH ×2 (06:06→17:59)
[2017-01-20] MEDS: MEROPENEM 1,000 MG in SODIUM CHLORIDE 0.9% 100 ML IV SCH ×3 (06:56→21:17)
--- NOTE | 2017-01-20 07:11 | CT Report ---
History is fever history of CLL 100 cc Omnipaque 350 utilized Pre and postcontrast chest abdomen and pelvis performed Comparison 05/08/2008 On the precontrast images, there are mild sclerotic changes in the thoracic aorta and the coronary arteries. Mild the pleural calcifications in the apices present with calcified granulomas present. No renal calculi are seen. Few pelvic phleboliths present. Following contrast, chest: There is very slight subjective enlargement of the bilateral up to 1.5 cm axillary nodes. There is slight subjective enlargement of numerous 5-9 mm scattered mediastinal nodes. Small hiatal hernia present. No pleural effusions present. There is an elongated 5 mm subpleural node along the minor fissure, slightly a larger than the prior study. There is a 7 mm subpleural node along the major fissure on the right very minimally subjectively increased in size in the interval. There is a 8 mm nodule just above the left diaphragm posteriorly, slightly larger than on the prior study. There is a small patchy area of the groundglass pulmonary opacity in the medial aspect of the left upper lobe adjacent to the mediastinum measuring 2.5 cm which has developed in the interval. Abdomen: There has been interval development of the moderate splenomegaly measuring up to 6.8 x 13 x 15 cm. No focal defects seen in the liver's clean, pancreas, adrenals, or right kidney. Small left renal cysts again some of which is mildly increased in size in the interval. There is been mild enlargement of several up to 1.4 cm periportal nodes. The a 1.3 cm celiac node is slightly larger than on the prior study. There has been slight enlargement of the several up to 1 cm periaortic nodes Duodenal diverticula present Pelvis: There has been significant enlargement of several up to 1.5 cm iliac nodes more pronounced on the left. Bilateral external iliac nodes measuring up to 1.4 cm mildly enlarged in the interval. Sigmoid diverticuli present without free fluid or focal inflammatory changes seen. Appendix is normal in size. Unopacified loops of bowel present. Impression: 1. Interval development of moderate splenomegaly 2. Enlarging nodes in the chest abdomen and pelvis detailed above 3. Mildly enlarging 8 mm nodule in the left lung base and slight enlarging nonspecific subpleural nodes in the right chest 4. New 2.5 cm rounded area of minimal groundglass pulmonary opacity in the left lung. Infiltrate is most likely however bronchoalveolar neoplasm could easily have a similar appearance. Follow-up is necessary. 5. Other findings detailed above The CT exam was performed using one or more of the following dose reduction techniques: Automated exposure control, adjustment of the mA and/or kV according to patient size, or use of iterative reconstruction technique. PROCEDURE INTERPRETED AT [facility] DEPARTMENT OF RADIOLOGY Final Report Signed by: Dr. Tiffanie Shafer
[2017-01-20] MEDS: ENOXAPARIN 40 MG/0.4 ML SYRINGE SUBCUT SCH (08:54)
[2017-01-20] MEDS: PANTOPRAZOLE 40 MG TABLET PO SCH (08:55)
[2017-01-20] MEDS: FILGRASTIM-SNDZ 300 MCG/0.5 ML SYRINGE SUBCUT SCH (08:55)
--- NOTE | 2017-01-20 09:11 | Oncology Progress Note ---
Assessment and Plan (1) CLL (chronic lymphocytic leukemia) Status: Acute Assessment and plan: The patient will be covered with broad-spectrum antibiotics while awaiting blood and urine cultures. 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 A CT of the chest abdomen pelvis is scheduled for the a.m. and consideration will be given to rituximab treatment in the near future. Current Visit: No Oncology Subjective PN Interval history: Labs reviewed yesterday in support of ongoing hemolysis. This was discussed yesterday on afternoon rounds with the patient and his family. IV Solu-Medrol was started. He is stable this morning and alert pleasant and cooperative. He is afebrile. His CT scan shows some 1.5 cm adenopathy in the celiac and inguinal regions. This is not unexpected with his disease course. There is also a 2.5 cm pulmonary opacification. This will need further follow-up the comparison study dates all the way back to 2007. This was not described definitely has a mass but rather in opacification. This was not seen on chest x -ray. Micro-results are negative. If his hematocrit can hold we can consider discharge within the next 24-48 hours with close outpatient follow-up. Exam - Constitutional Vitals: Period Temp Pulse Resp BP Sys/Gutierrez Pulse Ox Last 24 Hr 97 F-102.4 F 0-91 18-22 95-133/43-78 90-100 Results - Labs CBC & BMP: 01/20/17 01:19 01/19/17 06:49
[2017-01-20] MEDS: DEXTROSE 5% NACL 0.45% 1,000 ML IV SCH (13:54)
[2017-01-20] MEDS: FOLIC ACID 1 MG TABLET PO SCH (21:18)
[2017-01-21] MEDS: methylPREDNISolone SOD SUC 125 MG/2 ML VIAL IV SCH (06:12)
[2017-01-21] MEDS: MEROPENEM 1,000 MG in SODIUM CHLORIDE 0.9% 100 ML IV SCH (06:13)
[2017-01-21 06:47] LABS: Albumin 2.8 G/DL (3.4-5.0); Bilirubin,Total 1.2 MG/DL (0.2-1.0); Calcium 8.5 MG/DL (8.5-10.1); Magnesium 2.3 MG/DL (1.8-2.4); Osmolality,Calculated 290.8 MOS/KG (273-304); Potassium 4.5 MMOL/L (3.5-5.1); Total Protein 6.3 G/DL (6.4-8.3)
--- NOTE | 2017-01-21 09:11 | Discharge Summary ---
Hospital Course - Hospital Course Hospital Course: Patient with CLL recently initiated monoclonal antibody therapy admitted with fever and weakness. He is found to have evidence of hemolysis by decrease haptoglobin globin and increased reticulocyte count. He is received 2 days of IV steroids. Today CBC is pending but will be reviewed prior to discharge. He feels well and his fever has resolved. Microbiology studies are negative. Plan to discharge on 80 mg prednisone with office CBC tomorrow and follow-up visit on Wednesday of 4 days from today. Diagnosis - Discharge Diagnosis (1) CLL (chronic lymphocytic leukemia) Status: Acute Discharge Plan - Discharge Medications Continue Esomeprazole Magnesium [Nexium] 40 mg PO BEDTIME Ondansetron HCl 8 mg PO Q6H PRN PRN Reason: Nausea/Vomiting Allopurinol 300 mg PO BEDTIME - Follow Up or Referral - Forms/Instructions Exam - Constitutional Vitals: Period Temp Pulse Resp BP Sys/Gutierrez Pulse Ox Last 24 Hr 97.8 F-98.3 F 65-81 18-20 117-159/57-82 92-97 Discharge Results Procedures and tests throughout hospitalization: Pending Orders 01/19/17 04:20 Urine Culture Stat 01/19/17 04:30 Blood Culture Stat 01/21/17 08:12 Comp Blood Count Auto Diff Routine Reticulocyte Count Routine 01/22/17 04:00 Comprehensive Metabolic Panel IN AM Magnesium IN AM 01/23/17 04:00 Comprehensive Metabolic Panel IN AM Magnesium IN AM Labs on day of discharge: Labs from last 24 hours 01/21/17 01/21/17 05:51 05:50 Sodium 144 Potassium 4.5 Chloride 112 H Carbon Dioxide 25 Anion Gap 11.5 BUN 22 H Creatinine 1.10 GFR Calculation 94 BUN/Creatinine Ratio 20.00 Glucose 131 H Calculated Osmolality 290.8 Calcium 8.5 Magnesium 2.3 Total Bilirubin 1.20 H AST 11 ALT 16 Alkaline Phosphatase 65 Lactate Dehydrogenase 181 Total Protein 6.3 L Albumin 2.8 L Globulin 3.5 Albumin/Globulin Ratio 0.8 L Preliminary micro results at discharge 01/19/17 04:20 Urine Culture - Preliminary Urine,Clean Catch No Growth at 24 hours. 01/19/17 04:30 Blood Culture - Preliminary Blood No growth at 1 day 01/19/17 04:20 Blood Culture - Preliminary Blood No growth at 1 day DS: Provider Date of admission: 01/19/17 05:03 Primary care physician: Dima Baldwin MD Attending physician on admission: Jeff Hammer MD Consults: 01/19/17 06:24 Consult to Dietitian [CONS] Routine Reason for Dietitian: Dietary Consult Discharging clinician: Jeff Hammer MD
[2017-01-21 09:39] LABS: Basophils % 0.2 % (0.0-0.8); Hematocrit 27.5 VOL% (42.0-52.0); Hemoglobin 9.4 GM/DL (14.0-18.0); Immature Granulocytes % 19.8 %; Immature Granulocytes Absolute 0.95 #; Lymphocytes # 0.6 10*3/uL (1.4-4.0); Lymphocytes % 12.7 % (21.2-54.2); Mean Corpuscular HGB Conc 34.2 GM/DL (32-36); Mean Corpuscular Hemoglobin 33 PG (27-34); Mean Corpuscular Volume 95.2 FL (87-102); Mean Platelet Volume 9.5 FL (9.6-12.0); Monocytes # 0.2 10*3/uL (0.11-0.8); Neutrophils % 62.3 % (38.7-73.9); Red Blood Count 2.89 MC/CUMM (3.8-5.5); Red Cell Distribution Width 19.4 % (9.3-17.3); White Blood Count 4.8 T/CUMM (4-12)
[2017-01-21 09:41] LABS: Platelet Count 83 T/CUMM (130-400)
[2017-01-21 10:14] LABS: Band Neutrophils 6 % (0-10); Lymphocytes 13 % (20-55); Segmented Neutrophils 77 % (50-85); Total Cells Counted 100
[2017-01-21 10:15] LABS: Hypochromasia 1+; Microcytosis 1+
[2017-01-21 10:16] LABS: Platelet Estimate Decreased
[2017-01-21] MEDS: PANTOPRAZOLE 40 MG TABLET PO SCH (10:17)
[2017-01-21] MEDS: FILGRASTIM-SNDZ 300 MCG/0.5 ML SYRINGE SUBCUT SCH (10:17)
[2017-01-21] MEDS: ENOXAPARIN 40 MG/0.4 ML SYRINGE SUBCUT SCH (10:17)
[2017-01-21 11:11] VITALS: BP 154/75
--- NOTE | 2017-01-22 09:18 | Physician Query Form ---
CLICK EDIT DOCUMENT TO SELECT QUERY ANSWER --> OK --> SIGN Briana Shukla RN Clinical [employer]du[employer] Brusher Operator W) [phone] (f) [phone] [email or web address] PROVIDERS: Make your selection(s) from the choices in EACH section by typing an "x" and enter comments in the comment section. Please use your independent medical judgment in providing your response. This request does not imply that any particular answer is desired or expected. CLINICAL INDICATORS: (Providers should not edit this section) Based on documentation of "Neutropenic fever" "Pt had last chemo tx (for CLL) on January 09" WBC 2.3, RBC 2.24, PLT of 71. Transfused 2 units PRBC. Based on the above, could you clarify the appropriate diagnosis, if significant , that supports the above abnormalities and additional evaluation, monitoring, and/or treatment rendered: ( x) Chemo Induced Pancytopenia ( ) Pancytopenia due to (please specify) ( ) Did NOT have Pancytopenia ( ) Other, please specify: ( ) Clinically unable to determine COMMENTS: PLEASE ALSO DOCUMENT RESPONSE IN PROGRESS NOTES AND/OR DISCHARGE SUMMARY Use of terms such as suspected, likely, or probable (associated with a specific diagnosis that is being evaluated, monitored, or treated as if it exists) are acceptable and can be restated in the discharge summary if not ruled out. MTDD
--- NOTE | 2017-01-22 09:21 | Physician Query Form ---
CLICK EDIT DOCUMENT TO SELECT QUERY ANSWER --> OK --> SIGN Briana Shukla RN Clinical Manufacturing Engineer W) [phone] (f) [phone] [email or web address] PROVIDERS: Make your selection(s) from the choices in EACH section by typing an "x" and enter comments in the comment section. Please use your independent medical judgment in providing your response. This request does not imply that any particular answer is desired or expected. CLINICAL INDICATORS: (Providers should not edit this section) Based on documentation of "He states having little output, unless he can go outside" Creatinine from 1.6 to 1.10. GFR from 60 to 94. Treated with NS bolus and d5 1/2 NS infusion. Clarify which of the following most accurately represents the patient's renal status: ( x) Acute kidney injury (non-traumatic) ( ) Acute renal failure ( ) Acute renal failure with underlying Chronic Kidney Disease (CKD) - please provide stage below ( ) Acute renal failure with pathological renal lesion ( ) Acute renal failure with necrosis ( ) tubular ( ) medullary ( ) cortical ( ) CKD - please provide stage below ( ) End Stage Renal Disease ( ) Acute interstitial nephritis ( ) Hepatorenal syndrome ( ) Other, please specify: ( ) Clinically unable to determine Chronic Kidney Disease Stages Source: National Kidney Disease Foundation ( ) Stage I (eGFR > or = 90) ( ) Stage II (eGFR 60 - 89) ( ) Stage III (eGFR 30 - 59) ( ) Stage IV (eGFR 15 - 29) ( ) Stage V (eGFR < 15 or dialysis) COMMENTS: PLEASE ALSO DOCUMENT RESPONSE IN PROGRESS NOTES AND/OR DISCHARGE SUMMARY Use of terms such as suspected, likely, or probable (associated with a specific diagnosis that is being evaluated, monitored, or treated as if it exists) are acceptable and can be restated in the discharge summary if not ruled out. MTDD
== END 2017-01-21 12:45 | disposition home or self-care (01) | DRG 809 ==
LOC: N.ED 04:00 → N.EDINP 05:03 → N.4E 05:42
PROVIDERS: ADMIT Specialist; ATTEND Specialist

== ENCOUNTER 2017-02-25 13:40 | Inpatient (IN) ==
[2017-02-25] MEDS ORDERED: SODIUM CHLORIDE 0.9% 500 ML IV ONE (16:07)
[2017-02-25] MEDS: PIPERACILLIN/TAZOBACTAM 3,375 MG in SODIUM CHLORIDE 0.9% 100 ML IV SCH (16:31)
[2017-02-25] MEDS: FOLIC ACID 1 MG TABLET PO SCH (16:38)
[2017-02-25] MEDS: methylPREDNISolone SOD SUC 40 MG/1 ML VIAL IV SCH (16:38)
[2017-02-25] MEDS: SODIUM CHLORIDE 0.9% 1,000 ML IV SCH (16:39)
--- NOTE | 2017-02-25 18:38 | CT Report ---
CT chest w con Indication: Leukemia. CT CHEST WITH CONTRAST DLP: 474 mGy*cm. One or more of the following dose reduction techniques was used: Automated exposure control, adjustment of the mA and/or kV according the patient size, or use of iterative reconstruction techniques. Comparison: 01/20/2017 Technique: Axial CT images of the chest were obtained after the IV administration of Omnipaque 350, 100 cc. Findings: Calcified granulomata are stable. Enlarged lymph nodes in the axilla on the previous examination are decreased in size. For example, a 6 mm short axis lymph node in the right axilla previously measured 10 mm and a 10 mm left axillary node previously measured 15 mm. Subcentimeter mediastinal lymph nodes all appear slightly smaller than the previous exam. A 18 mm short axis right hilar lymph node previously measured 19 mm, equivocal. No left hilar lymphadenopathy is seen. Heart size remains normal with continued atheromatous disease present. Azygos fissure is again present. Dependent atelectasis bilaterally. In general, interstitial coarsening of the lungs noted as well. More prominent groundglass opacification of both lung bases is present. A nodule previously identified in the posterior lateral left costophrenic sulcus is stable, 7 mm diameter. No new pulmonary nodules are shown. Thoracic spine is unchanged. Limited views of the upper abdomen appear grossly unremarkable. Nodules previously associated with the right minor fissure are not apparent on the current exam, but rather have a more linear appearance such as scar formation. Impression: 1. General decrease in size of bilateral axillary and mediastinal lymph nodes as described. A right hilar lymph node remains enlarged and is stable in size. 2. Increasing groundglass opacification of the lung bases, nonspecific finding. Stable left lower lobe pulmonary nodule, 7 mm diameter. PROCEDURE INTERPRETED AT [facility] DEPARTMENT OF RADIOLOGY Final Report Signed by: Jeff Pollard M.D.
[2017-02-26] MEDS: PIPERACILLIN/TAZOBACTAM 3,375 MG in SODIUM CHLORIDE 0.9% 100 ML IV SCH ×4 (00:37→22:51)
[2017-02-26] MEDS: SODIUM CHLORIDE 0.9% 1,000 ML IV SCH ×3 (00:38→20:05)
[2017-02-26] MEDS: methylPREDNISolone SOD SUC 40 MG/1 ML VIAL IV SCH ×2 (02:46→15:13)
[2017-02-26] MEDS: FOLIC ACID 1 MG TABLET PO SCH (08:47)
[2017-02-26] MEDS ORDERED: MAGNESIUM HYDROXIDE SUSP 30 ML UDCUP PO PRN (10:50)
[2017-02-26] MEDS ORDERED: MYLANTA/LIDO VISC 2:1 300 ML BOTTLE SWISH/SPIT PRN (10:50)
[2017-02-26] MEDS ORDERED: traMADol 50 MG TABLET PO PRN (10:50)
[2017-02-26] MEDS ORDERED: ACETAMINOPHEN 325 MG TABLET PO PRN (10:50)
[2017-02-26] MEDS ORDERED: MYLANTA/LIDO VISC 2:1 300 ML BOTTLE SWISH/SWAL PRN (10:50)
[2017-02-26] MEDS ORDERED: ALPRAZolam 0.25 MG TABLET PO PRN (10:50)
[2017-02-26] MEDS ORDERED: PROMETHAZINE INJ 25 MG in SODIUM CHLORIDE 0.9% 50 ML IV PRN (10:50)
[2017-02-26] MEDS ORDERED: ONDANSETRON 4 MG/2 ML VIAL IV PRN (10:50)
[2017-02-26] MEDS ORDERED: guaiFENesin 200 MG/10 ML UDCUP PO PRN (10:50)
[2017-02-26] MEDS ORDERED: diphenhydrAMINE CAP 25 MG CAPSULE PO PRN (10:50)
[2017-02-26] MEDS ORDERED: chlorproMAZINE INJ 50 MG in SODIUM CHLORIDE 0.9% 100 ML IV PRN (10:50)
[2017-02-26] MEDS ORDERED: ALUMINUM/MAGNES/SIMETH MAX STR 30 ML UDCUP PO PRN (10:50)
[2017-02-26] MEDS ORDERED: BENZTROPINE 2 MG/2 ML AMP IV PRN (10:50)
[2017-02-26] MEDS ORDERED: LACTULOSE 20 GM/30 ML UDCUP PO PRN (10:50)
[2017-02-26] MEDS ORDERED: TEMAZEPAM 7.5 MG CAPSULE PO PRN (10:50)
[2017-02-26] MEDS ORDERED: LOPERAMIDE 2 MG CAPSULE PO PRN ×2 (10:50)
[2017-02-26] MEDS ORDERED: chlorproMAZINE INJ 25 MG in SODIUM CHLORIDE 0.9% 100 ML IV PRN (10:50)
[2017-02-26] MEDS ORDERED: chlorproMAZINE 25 MG TABLET PO PRN (10:50)
[2017-02-26] MEDS ORDERED: ONDANSETRON 4 MG TABLET PO PRN (10:58)
--- NOTE | 2017-02-26 11:01 | Oncology History&Physical ---
Assessment and Plan (1) CLL (chronic lymphocytic leukemia) Status: Acute Assessment and plan: The patient is improved this morning with fever resolved. He feels reasonably well. I am continuing him on Zosyn and Zithromax. We discussed discharge in the a.m. if his blood cultures are negative and no further fever. I discussed initiating bendamustine treatment along with additional rituximab on the scheduled office visit this coming Wednesday. Plan 50 mg daily prednisone for ongoing hemolysis. Current Visit: No History of Present Illness Chief complaint: Fever History of present illness: Mr. Guevara is a 71 year old male With CLL recently on rituximab therapy. He was followed for approximately 8 years before treatment was initiated earlier this year. He also has evidence of autoimmune hemolytic anemia although his reticulocyte count has significantly improved from 5 now down to 2. Hematocrit has been holding stable around 34. He was seen yesterday in the office with a fever of 101. He had seen a nurse practitioner 48 hours prior and was given Zithromax. He did have some fever last month as well and there was a small area of groundglass 2.5 cm at the left mediastinum. I repeated a CT of the chest yesterday in this area appears resolved. On the left base there was a moderate size area of haziness. He has had some cough along with the fever. He is immunosuppressed from steroids and his underlying disease process. Home Medications Medication Instructions Recorded Confirmed Type Allopurinol 300 mg PO BEDTIME 12/26/16 02/25/17 History Esomeprazole Magnesium [Nexium] 40 mg PO BEDTIME 12/26/16 02/25/17 History Ondansetron HCl 8 mg PO Q6H PRN 12/26/16 02/25/17 History Allergies Allergy/AdvReac Type Severity Reaction Status Date / Time No Known Allergies Allergy Verified 12/26/16 08:29 Medical,Surgical,& Family Hx - Medical History Cardio: No history of: Cardiovascular Problems Psychological: No history of: Violent Behavior HEENT: History of: HEENT Problems (sinusitis) Endocrine: No history of: Endocrine Problems Respiratory: No history of: Respiratory Problems Renal: No history of: Renal Problems Gastrointestinal: History of: GERD Musculoskeletal: No history of: Musculoskeletal Problems Hematology: No history of: Bleeding Problems Reproductive: No histroy: Reproductive Problems Other: History of: Cancer (CLL) - Family History Family History: Reports;: Family Heart Disease - Social History Smoking Status: Never smoker Frequency of Alcohol Use: None Type of Drug Use: None - Constitutional Constitutional: Present: fatigue, fever(s), malaise, night sweats. Absent: increased appetite - EENT Nose, mouth and throat: Absent: dysphagia, epistaxis - Cardiovascular Cardiovascular ROS IM: Absent: chest pain, edema, orthopnea - Respiratory Respiratory: Present: cough. Absent: hemoptysis, wheezing - Gastrointestinal Gastrointestinal: Absent: cramping - Psychiatric Psychiatric General: Absent: anxiety - Hematologic/Lymphatic Hematologic/Lymphatic: Absent: easy bleeding Exam - Constitutional Vitals: Period Temp Pulse Resp BP Sys/Gutierrez Pulse Ox Last 24 Hr 97.5 F-101.2 F 70-101 16-22 113-149/57-78 91-98 General appearance: normal weight - Head Head Exam: Present: normocephalic - Eye Eye Exam: Present: EOMI. Absent: conjunctival injection, periorbital swelling, scleral icterus - ENT ENT exam: Present: normal external ear exam - Neck Neck exam: Present: normal inspection. Absent: lymphadenopathy - Respiratory Respiratory exam: Present: CTAB. Absent: accessory muscle use, chest wall tenderness - Cardiovascular Cardiovascular exam: Present: RRR - GI/Abdominal GI/Abdominal exam: Absent: ascites, distended - Neurological Exam Neurological exam: Present: alert, oriented X3 - Psychiatric Psychiatric exam: Present: normal affect, normal mood. Absent: anxious, depressed - Skin Skin exam: Present: warm, dry
[2017-02-26] MEDS ORDERED: CYANOCOBALAMIN 1000 MCG/1 ML VIAL IM ONE (11:07)
[2017-02-26] MEDS ORDERED: AZITHROMYCIN 250 MG TABLET PO SCH (11:30)
[2017-02-26] MEDS: AZITHROMYCIN 250 MG TABLET PO SCH (13:31)
[2017-02-26] MEDS ORDERED: PANTOPRAZOLE 40 MG TABLET PO SCH (21:00)
[2017-02-26] MEDS ORDERED: ALLOPURINOL 300 MG TABLET PO SCH (21:00)
[2017-02-27] MEDS: methylPREDNISolone SOD SUC 40 MG/1 ML VIAL IV SCH (03:55)
[2017-02-27 06:05] LABS: Basophils % 0.2 % (0.0-0.8); Hematocrit 27.5 VOL% (42.0-52.0); Hemoglobin 9.6 GM/DL (14.0-18.0); Immature Granulocytes Absolute 0.31 #; Lymphocytes # 1.4 10*3/uL (1.4-4.0); Lymphocytes % 31.5 % (21.2-54.2); Mean Corpuscular HGB Conc 34.9 GM/DL (32-36); Mean Corpuscular Hemoglobin 34 PG (27-34); Mean Corpuscular Volume 97.9 FL (87-102); Mean Platelet Volume 9.7 FL (9.6-12.0); Monocytes # 0.1 10*3/uL (0.11-0.8); Monocytes % 2.7 % (1.7-12.7); Neutrophils # 2.6 10*3/uL (1.4-7.4); Neutrophils % 58.6 % (38.7-73.9); Platelet Count 100 T/CUMM (130-400); Red Blood Count 2.81 MC/CUMM (3.8-5.5); Red Cell Distribution Width 17.7 % (9.3-17.3); White Blood Count 4.4 T/CUMM (4-12)
[2017-02-27] MEDS: PIPERACILLIN/TAZOBACTAM 3,375 MG in SODIUM CHLORIDE 0.9% 100 ML IV SCH (06:12)
[2017-02-27 06:34] LABS: Albumin 2.9 G/DL (3.4-5.0); Calcium 8.3 MG/DL (8.5-10.1); Osmolality,Calculated 288.3 MOS/KG (273-304); Potassium 4.3 MMOL/L (3.5-5.1); Total Protein 5.5 G/DL (6.4-8.3)
[2017-02-27 07:21] LABS: Hypochromasia Slight; Microcytosis 1+
[2017-02-27] MEDS ORDERED: ALBUTEROL/IPRATROPIUM 3 ML NEB RESP TX PRN (07:42)
--- NOTE | 2017-02-27 09:16 | Discharge Summary ---
Hospital Course - Hospital Course Hospital Course: Mr. Guevara is a 71-year-old white male with a history of CLL and autoimmune hemolytic anemia who was admitted 2 days ago with fever. There is some concern for pulmonary infection. A CT scan done here did not show any obvious infiltrate but he was covered with Zosyn and azithromycin. His fever has defervesced. Gram stains from his sputum shows numerous gram-positive cocci , gram-positive rods, and gram-negative rods. This is not surprising as normal catarina. He is ready for discharge home today. Dr. Hammer has an appointment to see him in the near future. They are considering adding bendamustine to his Rituxan regimen. I will send him out with Augmentin today for antimicrobial coverage given his Gram stain findings. He will also be on prednisone per Dr. Hammer's request. - Time spent with patient Time with patient DS: Greater than 30 minutes Specialty Discharge - Follow Up or Referrals Follow up with: Jeff Hammer MD [Physician] - 03/02/17 8:15 am Discharge Plan - Discharge Data Disposition: Disch To Home/Self Care Condition at Discharge: Stable Discharge Diet: advance to your usual diet Activity: resume usual activities as tolerated Contact your physician if you experience:: fever over 101 - Discharge Medications New predniSONE TAB [PredniSONE] 40 mg PO DAILY #60 tablet Amoxicillin/Clav Tab [Augmentin Tab] 500 mg PO Q12H #10 tablet Continue Esomeprazole Magnesium [Nexium] 40 mg PO BEDTIME Ondansetron HCl 8 mg PO Q6H PRN PRN Reason: Nausea/Vomiting Allopurinol 300 mg PO BEDTIME - Follow Up or Referral Follow Up: Jeff Hammer MD [Physician] - 03/02/17 8:15 am - Forms/Instructions Exam - Constitutional Vitals: Period Temp Pulse Resp BP Sys/Guiterrez Pulse Ox Last 24 Hr 98.0 F-98.6 F 71-85 16-20 133-139/71-87 91-96 Discharge Results Procedures and tests throughout hospitalization: Pending Orders 02/26/17 11:20 Sputum Culture and Gram Stain Routine Labs on day of discharge: Labs from last 24 hours 02/27/17 02/27/17 02/27/17 04:52 04:52 04:52 WBC 4.4 RBC 2.81 L Hgb 9.6 L Hct 27.5 L MCV 97.9 MCH 34 MCHC 34.9 RDW 17.7 H Plt Count 100 L MPV 9.7 Neut % (Auto) 58.6 Lymph % (Auto) 31.5 Bradford % (Auto) 2.7 Eos % (Auto) 0.0 Baso % (Auto) 0.2 Neut # (Auto) 2.6 Lymph # (Auto) 1.4 Bradford # (Auto) 0.1 L Eos # (Auto) 0.0 Baso # (Auto) 0.0 Immature Gran % 7.0 Nucleated RBC % 0.0 Immature Gran # 0.31 Nucleated RBCs # 0.00 Immature Plt Fraction 0.0 Hypochromasia Slight Microcytosis 1+ Sodium 141 Potassium 4.3 Chloride 108 H Carbon Dioxide 24 Anion Gap 13.3 BUN 28 H Creatinine 1.20 GFR Calculation 73 BUN/Creatinine Ratio 23.00 H Glucose 126 H Calculated Osmolality 288.3 Calcium 8.3 L Total Bilirubin 1.00 AST 21 ALT 43 Alkaline Phosphatase 58 Lactate Dehydrogenase 246 Total Protein 5.5 L Albumin 2.9 L Globulin 2.6 Albumin/Globulin Ratio 1.1 PSA Diagnostic 0.6 DS: Provider Date of admission: 02/25/17 14:06 Primary care physician: Dima Baldwin MD Attending physician on admission: Jeff Hammer MD Discharging clinician: Chuy Bah MD
[2017-02-27] MEDS: FOLIC ACID 1 MG TABLET PO SCH (09:22)
[2017-02-27] MEDS: AZITHROMYCIN 250 MG TABLET PO SCH (09:22)
[2017-02-27 11:32] VITALS: BP 157/84
== END 2017-02-27 10:50 | disposition home or self-care (01) | DRG 864 ==
LOC: N.4E 14:06
PROVIDERS: ADMIT Specialist; ATTEND Specialist

== ENCOUNTER 2017-05-28 11:44 | Inpatient (IN) ==
[2017-05-28] MEDS ORDERED: SODIUM CHLORIDE 0.9% 1,000 ML IV STA (12:39)
[2017-05-28 12:44] LABS: Basophils % 0.5 % (0.0-0.8); Hematocrit 37.2 VOL% (42.0-52.0); Hemoglobin 12.9 GM/DL (14.0-18.0); Immature Granulocytes % 7.2 %; Immature Granulocytes Absolute 0.46 #; Lymphocytes # 1.6 10*3/uL (1.4-4.0); Lymphocytes % 25.8 % (21.2-54.2); Mean Corpuscular HGB Conc 34.7 GM/DL (32-36); Mean Corpuscular Hemoglobin 34 PG (27-34); Mean Corpuscular Volume 98.4 FL (87-102); Monocytes # 0.7 10*3/uL (0.11-0.8); Monocytes % 10.6 % (1.7-12.7); Neutrophils # 3.6 10*3/uL (1.4-7.4); Neutrophils % 55.9 % (38.7-73.9); Platelet Count 117 T/CUMM (130-400); Red Blood Count 3.78 MC/CUMM (3.8-5.5); Red Cell Distribution Width 15.9 % (9.3-17.3); White Blood Count 6.4 T/CUMM (4-12)
[2017-05-28 13:27] LABS: Albumin 3.4 G/DL (3.4-5.0); Bilirubin,Total 0.7 MG/DL (0.2-1.0); Calcium 9.1 MG/DL (8.5-10.1); Osmolality,Calculated 280.5 MOS/KG (273-304); Potassium 3.5 MMOL/L (3.5-5.1); Total Protein 6.5 G/DL (6.4-8.3)
[2017-05-28] MEDS ORDERED: LACTULOSE 20 GM/30 ML UDCUP PO PRN (15:50)
[2017-05-28] MEDS ORDERED: BENZTROPINE 2 MG/2 ML AMP IV PRN (15:50)
[2017-05-28] MEDS ORDERED: PROMETHAZINE INJ 25 MG in SODIUM CHLORIDE 0.9% 50 ML IV PRN (15:50)
[2017-05-28] MEDS ORDERED: diphenhydrAMINE CAP 25 MG CAPSULE PO PRN (15:50)
[2017-05-28] MEDS ORDERED: MAGNESIUM HYDROXIDE SUSP 30 ML UDCUP PO PRN (15:50)
[2017-05-28] MEDS ORDERED: chlorproMAZINE INJ 25 MG in SODIUM CHLORIDE 0.9% 100 ML IV PRN (15:50)
[2017-05-28] MEDS ORDERED: LOPERAMIDE 2 MG CAPSULE PO PRN ×2 (15:50)
[2017-05-28] MEDS ORDERED: TEMAZEPAM 7.5 MG CAPSULE PO PRN (15:50)
[2017-05-28] MEDS ORDERED: chlorproMAZINE 25 MG TABLET PO PRN (15:50)
[2017-05-28] MEDS ORDERED: ALPRAZolam 0.25 MG TABLET PO PRN (15:50)
[2017-05-28] MEDS ORDERED: chlorproMAZINE INJ 50 MG in SODIUM CHLORIDE 0.9% 100 ML IV PRN (15:50)
[2017-05-28] MEDS ORDERED: ACETAMINOPHEN 325 MG TABLET PO PRN (15:50)
[2017-05-28] MEDS ORDERED: MYLANTA/LIDO VISC 2:1 300 ML BOTTLE SWISH/SWAL PRN (15:50)
[2017-05-28] MEDS ORDERED: traMADol 50 MG TABLET PO PRN (15:50)
[2017-05-28] MEDS ORDERED: ALUMINUM/MAGNES/SIMETH MAX STR 30 ML UDCUP PO PRN (15:50)
[2017-05-28] MEDS ORDERED: ONDANSETRON 4 MG/2 ML VIAL IV PRN (15:50)
[2017-05-28] MEDS ORDERED: guaiFENesin 200 MG/10 ML UDCUP PO PRN (15:50)
[2017-05-28] MEDS ORDERED: MYLANTA/LIDO VISC 2:1 300 ML BOTTLE SWISH/SPIT PRN (15:50)
[2017-05-28] MEDS ORDERED: SODIUM CHLORIDE 0.9% 1,000 ML IV SCH (16:00)
[2017-05-28] MEDS ORDERED: ALBUTEROL/IPRATROPIUM 3 ML NEB RESP TX SCH (18:00)
[2017-05-28 18:19] LABS: Basophils % 0.1 % (0.0-0.8); Hematocrit 34.2 VOL% (42.0-52.0); Hemoglobin 11.7 GM/DL (14.0-18.0); Immature Granulocytes % 7.4 %; Lymphocytes # 1.6 10*3/uL (1.4-4.0); Lymphocytes % 24.2 % (21.2-54.2); Mean Corpuscular HGB Conc 34.2 GM/DL (32-36); Mean Corpuscular Hemoglobin 34 PG (27-34); Mean Corpuscular Volume 100.3 FL (87-102); Mean Platelet Volume 10.4 FL (9.6-12.0); Monocytes # 0.7 10*3/uL (0.11-0.8); Monocytes % 10.8 % (1.7-12.7); Neutrophils # 3.9 10*3/uL (1.4-7.4); Neutrophils % 57.5 % (38.7-73.9); Platelet Count 109 T/CUMM (130-400); Red Blood Count 3.41 MC/CUMM (3.8-5.5); White Blood Count 6.8 T/CUMM (4-12)
[2017-05-28 18:39] LABS: Albumin 3.1 G/DL (3.4-5.0); Bilirubin,Total 0.6 MG/DL (0.2-1.0); Calcium 8.4 MG/DL (8.5-10.1); Magnesium 1.9 MG/DL (1.8-2.4); Osmolality,Calculated 279.5 MOS/KG (273-304); Potassium 4.3 MMOL/L (3.5-5.1); Total Protein 5.5 G/DL (6.4-8.3); Uric Acid 5.9 MG/DL (3.5-7.2)
[2017-05-28] MEDS ORDERED: methylPREDNISolone SOD SUC 40 MG/1 ML VIAL IV SCH (22:00)
[2017-05-29] MEDS ORDERED: chlorproMAZINE INJ 50 MG in SODIUM CHLORIDE 0.9% 100 ML IV PRN (03:26)
[2017-05-29] MEDS ORDERED: chlorproMAZINE INJ 25 MG in SODIUM CHLORIDE 0.9% 100 ML IV PRN (03:26)
[2017-05-29] MEDS ORDERED: ACETAMINOPHEN 325 MG TABLET PO PRN (03:26)
[2017-05-29] MEDS ORDERED: BENZTROPINE 2 MG/2 ML AMP IV PRN (03:26)
[2017-05-29] MEDS ORDERED: guaiFENesin 200 MG/10 ML UDCUP PO PRN (03:26)
[2017-05-29] MEDS ORDERED: PROMETHAZINE INJ 25 MG in SODIUM CHLORIDE 0.9% 50 ML IV PRN (03:26)
[2017-05-29] MEDS ORDERED: ONDANSETRON 4 MG/2 ML VIAL IV PRN (03:26)
[2017-05-29] MEDS ORDERED: ALPRAZolam 0.25 MG TABLET PO PRN (03:26)
[2017-05-29] MEDS ORDERED: LACTULOSE 20 GM/30 ML UDCUP PO PRN (03:26)
[2017-05-29] MEDS ORDERED: MYLANTA/LIDO VISC 2:1 300 ML BOTTLE SWISH/SPIT PRN (03:26)
[2017-05-29] MEDS ORDERED: MAGNESIUM HYDROXIDE SUSP 30 ML UDCUP PO PRN (03:26)
[2017-05-29] MEDS ORDERED: MYLANTA/LIDO VISC 2:1 300 ML BOTTLE SWISH/SWAL PRN (03:26)
[2017-05-29] MEDS ORDERED: chlorproMAZINE 25 MG TABLET PO PRN (03:26)
[2017-05-29] MEDS ORDERED: LOPERAMIDE 2 MG CAPSULE PO PRN ×2 (03:26)
[2017-05-29] MEDS ORDERED: traMADol 50 MG TABLET PO PRN (03:26)
[2017-05-29] MEDS ORDERED: diphenhydrAMINE CAP 25 MG CAPSULE PO PRN (03:26)
[2017-05-29] MEDS ORDERED: TEMAZEPAM 7.5 MG CAPSULE PO PRN (03:26)
[2017-05-29] MEDS ORDERED: ALUMINUM/MAGNES/SIMETH MAX STR 30 ML UDCUP PO PRN (03:26)
[2017-05-29] MEDS ORDERED: guaiFENesin/CODEINE 5 ML LIQUID PO PRN ×2 (09:59→10:52)
[2017-05-29] MEDS ORDERED: CETIRIZINE 10 MG TABLET PO PRN (10:52)
[2017-05-29] MEDS ORDERED: ALBUTEROL 2.5 MG/3 ML NEB RESP TX PRN (10:52)
[2017-05-29] MEDS: MEROPENEM 1,000 MG in SYRINGE 1 EACH IV SCH ×2 (11:03→23:17)
[2017-05-29] MEDS: methylPREDNISolone SOD SUC 40 MG/1 ML VIAL IV SCH ×2 (11:06→23:13)
[2017-05-29] MEDS: ARFORMOTEROL 15 MCG/2 ML NEB RESP TX SCH ×3 (12:37→20:15)
[2017-05-29] MEDS: ALBUTEROL/IPRATROPIUM 3 ML NEB RESP TX SCH ×3 (12:37→20:15)
[2017-05-29] MEDS: BUDESONIDE 0.5 MG/2 ML NEB RESP TX SCH ×3 (12:37→20:15)
[2017-05-29 20:14] LABS: Apearance,Urine CLEAR (Clear); Bilirubin,Urine Negative (Negative); Blood, Urine Negative (Negative); Glucose,Urine (UA) 150 mg/dL (Negative); Ketones,Urine Negative (Negative); Nitrite,Urine Negative (Negative); Protein,Urine Negative; RBC,Urine <1 /HPF (0-4); Urine Color Straw (Yellow); Urine Urobilinogen < 2.0 EU/DL (0.2-1.0); WBC,Urine 1 /HPF (0-6)
[2017-05-29] MEDS: PANTOPRAZOLE 40 MG TABLET PO SCH (21:07)
[2017-05-29] MEDS: APIXABAN 5 MG TABLET PO SCH (21:07)
[2017-05-29] MEDS: ACYCLOVIR 200 MG CAPSULE PO SCH (21:08)
[2017-05-30] MEDS: ALBUTEROL/IPRATROPIUM 3 ML NEB RESP TX SCH ×4 (02:00→19:35)
[2017-05-30] MEDS: ARFORMOTEROL 15 MCG/2 ML NEB RESP TX SCH ×2 (07:30→19:35)
[2017-05-30] MEDS: BUDESONIDE 0.5 MG/2 ML NEB RESP TX SCH ×2 (07:31→19:36)
[2017-05-30] MEDS: APIXABAN 5 MG TABLET PO SCH ×2 (08:25→20:54)
[2017-05-30] MEDS: ALLOPURINOL 300 MG TABLET PO SCH (08:25)
[2017-05-30] MEDS: FOLIC ACID 0.4 MG TABLET PO SCH (08:25)
[2017-05-30] MEDS: Potassium [Potassium] 99 MG PO SCH (08:44)
[2017-05-30] MEDS: MEROPENEM 1,000 MG in SYRINGE 1 EACH IV SCH (11:56)
[2017-05-30] MEDS: methylPREDNISolone SOD SUC 40 MG/1 ML VIAL IV SCH (11:59)
[2017-05-30] MEDS: ACYCLOVIR 200 MG CAPSULE PO SCH (20:54)
[2017-05-30] MEDS: PANTOPRAZOLE 40 MG TABLET PO SCH (20:54)
[2017-05-31] MEDS: methylPREDNISolone SOD SUC 40 MG/1 ML VIAL IV SCH ×2 (00:12→11:16)
[2017-05-31] MEDS: MEROPENEM 1,000 MG in SYRINGE 1 EACH IV SCH ×2 (00:15→11:15)
[2017-05-31] MEDS: ALBUTEROL/IPRATROPIUM 3 ML NEB RESP TX SCH ×4 (01:25→19:23)
[2017-05-31] MEDS: ARFORMOTEROL 15 MCG/2 ML NEB RESP TX SCH ×2 (07:18→19:23)
[2017-05-31] MEDS: BUDESONIDE 0.5 MG/2 ML NEB RESP TX SCH ×2 (07:18→19:23)
[2017-05-31 08:09] LABS: Hematocrit 32.5 VOL% (42.0-52.0); Hemoglobin 11.2 GM/DL (14.0-18.0); Immature Granulocytes % 7.1 %; Immature Granulocytes Absolute 0.27 #; Lymphocytes # 1.2 10*3/uL (1.4-4.0); Lymphocytes % 31.1 % (21.2-54.2); Mean Corpuscular HGB Conc 34.5 GM/DL (32-36); Mean Corpuscular Hemoglobin 34 PG (27-34); Mean Corpuscular Volume 99.1 FL (87-102); Monocytes # 0.4 10*3/uL (0.11-0.8); Monocytes % 11.6 % (1.7-12.7); Neutrophils # 1.9 10*3/uL (1.4-7.4); Neutrophils % 50.2 % (38.7-73.9); Platelet Count 103 T/CUMM (130-400); Red Blood Count 3.28 MC/CUMM (3.8-5.5); Red Cell Distribution Width 15.8 % (9.3-17.3); White Blood Count 3.8 T/CUMM (4-12)
[2017-05-31 08:42] LABS: Albumin 3.1 G/DL (3.4-5.0); Bilirubin,Total 0.4 MG/DL (0.2-1.0); Calcium 8.4 MG/DL (8.5-10.1); Magnesium 2.5 MG/DL (1.8-2.4); Potassium 3.9 MMOL/L (3.5-5.1); Total Protein 5.5 G/DL (6.4-8.3)
[2017-05-31] MEDS: ALLOPURINOL 300 MG TABLET PO SCH (08:58)
[2017-05-31] MEDS: FOLIC ACID 0.4 MG TABLET PO SCH (08:58)
[2017-05-31 08:59] LABS: Band Neutrophils 1 % (0-10); Hypochromasia 1+; Lymphocytes 34 % (20-55); Microcytosis Slight; Ovalocytes Slight; Platelet Estimate Decreased; Segmented Neutrophils 59 % (50-85); Total Cells Counted 100
[2017-05-31] MEDS: APIXABAN 5 MG TABLET PO SCH ×2 (08:59→20:38)
[2017-05-31] MEDS: Potassium [Potassium] 99 MG PO SCH (09:02)
[2017-05-31] MEDS: ACYCLOVIR 200 MG CAPSULE PO SCH (20:37)
[2017-05-31] MEDS: PANTOPRAZOLE 40 MG TABLET PO SCH (20:38)
[2017-06-01] MEDS: methylPREDNISolone SOD SUC 40 MG/1 ML VIAL IV SCH (00:17)
[2017-06-01] MEDS: MEROPENEM 1,000 MG in SYRINGE 1 EACH IV SCH (00:18)
[2017-06-01] MEDS: ALBUTEROL/IPRATROPIUM 3 ML NEB RESP TX SCH ×2 (01:21→07:30)
[2017-06-01] MEDS: BUDESONIDE 0.5 MG/2 ML NEB RESP TX SCH (07:30)
[2017-06-01] MEDS: ARFORMOTEROL 15 MCG/2 ML NEB RESP TX SCH (07:30)
[2017-06-01] MEDS: APIXABAN 5 MG TABLET PO SCH (08:14)
[2017-06-01] MEDS: FOLIC ACID 0.4 MG TABLET PO SCH (08:14)
[2017-06-01] MEDS: ALLOPURINOL 300 MG TABLET PO SCH (08:14)
[2017-06-01] MEDS: Potassium [Potassium] 99 MG PO SCH (08:16)
[2017-06-01] MEDS ORDERED: diphenhydrAMINE CAP 25 MG CAPSULE PO ONE (09:30)
[2017-06-01] MEDS ORDERED: ACETAMINOPHEN 500 MG TABLET PO ONE (09:30)
[2017-06-01] MEDS ORDERED: IMMUNE GLOBULIN 10% 20 GM, IMMUNE GLOBULIN 10% 5 GM in PREMIX 1 EACH IV ONE (09:30)
[2017-06-01 14:23] VITALS: BP 159/86
== END 2017-06-01 15:15 | disposition home or self-care (01) | DRG 202 ==
LOC: EDUNIT# → N.ED 11:44 → N.EDINP 15:50 → N.4E 17:38
PROVIDERS: ADMIT Specialist; ATTEND Specialist

== ENCOUNTER 2017-07-05 20:49 | Inpatient (IN) ==
[2017-07-05] MEDS ORDERED: CEFEPIME 2,000 MG in SODIUM CHLORIDE 0.9% 100 ML IV STA (23:00)
[2017-07-05] MEDS ORDERED: CEFEPIME 2,000 MG in SYRINGE 1 EACH IV STA (23:33)
[2017-07-05 23:38] LABS: Basophils % 0.7 % (0.0-0.8); Eosinophils % 0.5 % (0.00-10.9); Hematocrit 31.2 VOL% (42.0-52.0); Immature Granulocytes % 0.3 %; Immature Granulocytes Absolute 0.02 #; Lymphocytes # 4.3 10*3/uL (1.4-4.0); Lymphocytes % 71.2 % (21.2-54.2); Mean Corpuscular HGB Conc 32.1 GM/DL (32-36); Mean Corpuscular Hemoglobin 32 PG (27-34); Mean Platelet Volume 10.2 FL (9.6-12.0); Monocytes # 0.5 10*3/uL (0.11-0.8); Monocytes % 8.7 % (1.7-12.7); Neutrophils # 1.1 10*3/uL (1.4-7.4); Neutrophils % 18.6 % (38.7-73.9); Platelet Count 107 T/CUMM (130-400); Red Blood Count 3.09 MC/CUMM (3.8-5.5); Red Cell Distribution Width 16.6 % (9.3-17.3); White Blood Count 6.1 T/CUMM (4-12)
[2017-07-06] MEDS ORDERED: VANCOMYCIN INJ 1,500 MG in SODIUM CHLORIDE 0.9% 250 ML IV SCH
[2017-07-06 00:04] LABS: Albumin 2.3 G/DL (3.4-5.0); Bilirubin,Total 1.4 MG/DL (0.2-1.0); Calcium 7.7 MG/DL (8.5-10.1); Potassium 2.9 MMOL/L (3.5-5.1); Total Protein 4.9 G/DL (6.4-8.3)
[2017-07-06 00:08] LABS: Apearance,Urine CLEAR (Clear); Bilirubin,Urine Negative (Negative); Blood, Urine Negative (Negative); Glucose,Urine (UA) Negative (Negative); Granular Casts,Urine 4 /LPF (0-1); Hyaline Casts,Urine 8 /LPF (0-3); Ketones,Urine Negative (Negative); Mucus,Urine Occasional /LPF (Occasional); Nitrite,Urine Negative (Negative); Protein,Urine Negative; RBC,Urine 1 /HPF (0-4); Squamous Epithelial Cell,Urine Occasional /HPF (0-10); Urine Color Amber (Yellow); Urine Specific Gravity 1.014 (1.001-1.035); WBC,Urine 7 /HPF (0-6)
[2017-07-06] MEDS: VANCOMYCIN INJ 1,500 MG in SODIUM CHLORIDE 0.9% 500 ML IV SCH ×2 (00:48→12:46)
[2017-07-06 02:21] LABS: Anisocytosis 1+; Band Neutrophils 5 % (0-10); Eosinophils 3 % (0-10); Lymphocytes 55 % (20-55); Segmented Neutrophils 31 % (50-85); Total Cells Counted 100
[2017-07-06 02:22] LABS: Atypical Lymphocytes Moderate; Poikilocytosis 1+
[2017-07-06] MEDS ORDERED: ONDANSETRON 4 MG/2 ML VIAL IV PRN (04:53)
[2017-07-06] MEDS ORDERED: SODIUM CHLORIDE 0.9% 1,000 ML IV SCH (05:00)
[2017-07-06] MEDS: LEVOFLOXACIN INJ 750 MG in PREMIX 1 EACH IV SCH (07:01)
[2017-07-06] MEDS: ALBUTEROL/IPRATROPIUM 3 ML NEB RESP TX SCH ×3 (08:25→19:53)
[2017-07-06] MEDS ORDERED: PANTOPRAZOLE 40 MG TABLET PO SCH (09:00)
[2017-07-06] MEDS ORDERED: IPRATROPIUM 500 MCG/2.5 ML NEB RESP TX PRN (09:03)
[2017-07-06] MEDS ORDERED: POTASSIUM CHLORIDE 8 MEQ CAPSULE PO SCH (09:30)
[2017-07-06] MEDS: CETIRIZINE 10 MG TABLET PO SCH (09:37)
[2017-07-06] MEDS: PANTOPRAZOLE 40 MG TABLET PO SCH (09:37)
[2017-07-06] MEDS: TAMSULOSIN 0.4 MG CAPSULE PO SCH (09:37)
[2017-07-06] MEDS: VORICONAZOLE 200 MG TABLET PO SCH ×2 (09:38→20:11)
[2017-07-06] MEDS: ATROPINE 1 % OPH SOLN 5 ML BOTTLE RIGHT EYE SCH ×2 (09:38→20:11)
[2017-07-06] MEDS: PREDNISOLONE ACETATE 0.12% RIGHT EYE SCH ×4 (09:38→20:12)
[2017-07-06 10:02] LABS: Magnesium 1.4 MG/DL (1.8-2.4); Uric Acid 8.7 MG/DL (3.5-7.2)
[2017-07-06 12:11] LABS: INR 1.2; PT Patient Result 12.3 SECS
[2017-07-06] MEDS: POTASSIUM CHLORIDE 20 MEQ TABLET PO SCH (12:53)
[2017-07-06] MEDS ORDERED: POTASSIUM CHLORIDE 20 MEQ TABLET PO ONE (13:00)
[2017-07-06] MEDS: FUROSEMIDE 20 MG TABLET PO SCH (16:08)
[2017-07-06 17:15] LABS: Hepatitis A Ab IgM Quant 0.08 Index; Hepatitis A Ab IgM Result Negative (Negative); Hepatitis B Core IgM Quant 0.06 Index; Hepatitis B Core IgM Result Negative (Negative); Hepatitis B Surface Ag Quant < 0.10 Index; Hepatitis B Surface Ag Result Negative (Negative); Hepatitis C Virus Ab Quant 0.15 Index; Hepatitis C Virus Ab Result Negative (Negative)
[2017-07-06] MEDS: ACYCLOVIR 200 MG CAPSULE PO SCH (20:10)
[2017-07-06] MEDS: CARVEDILOL 6.25 MG TABLET PO SCH (20:11)
[2017-07-07] MEDS: VANCOMYCIN INJ 1,500 MG in SODIUM CHLORIDE 0.9% 500 ML IV SCH ×2 (00:24→13:29)
[2017-07-07] MEDS: ACETAMINOPHEN 325 MG TABLET PO PRN (00:37)
[2017-07-07] MEDS: ALBUTEROL/IPRATROPIUM 3 ML NEB RESP TX SCH ×4 (01:19→21:06)
[2017-07-07] MEDS ORDERED: SODIUM CHLORIDE 0.9% 250 ML IV ONE (02:22)
[2017-07-07] MEDS: LEVOFLOXACIN INJ 750 MG in PREMIX 1 EACH IV SCH (05:58)
[2017-07-07 07:09] LABS: Albumin 1.7 G/DL (3.4-5.0); Bilirubin,Total 1.5 MG/DL (0.2-1.0); Calcium 6.8 MG/DL (8.5-10.1); Osmolality,Calculated 282.1 MOS/KG (273-304); Potassium 3.1 MMOL/L (3.5-5.1); Total Protein 4.4 G/DL (6.4-8.3)
[2017-07-07 07:20] LABS: Basophils % 0.6 % (0.0-0.8); Eosinophils # 0.1 10*3/uL (0.0-0.87); Hematocrit 26.5 VOL% (42.0-52.0); Hemoglobin 8.6 GM/DL (14.0-18.0); Immature Granulocytes % 0.4 %; Immature Granulocytes Absolute 0.02 #; Lymphocytes # 2.7 10*3/uL (1.4-4.0); Lymphocytes % 55.4 % (21.2-54.2); Mean Corpuscular HGB Conc 32.5 GM/DL (32-36); Mean Corpuscular Hemoglobin 33 PG (27-34); Mean Platelet Volume 10.5 FL (9.6-12.0); Monocytes # 0.7 10*3/uL (0.11-0.8); Monocytes % 14.1 % (1.7-12.7); Neutrophils # 1.4 10*3/uL (1.4-7.4); Neutrophils % 28.5 % (38.7-73.9); Red Blood Count 2.65 MC/CUMM (3.8-5.5); Red Cell Distribution Width 16.6 % (9.3-17.3); White Blood Count 4.9 T/CUMM (4-12)
[2017-07-07 07:26] LABS: Platelet Count 89 T/CUMM (130-400)
[2017-07-07 08:07] LABS: Hypochromasia 1+; Lymphocytes 51 % (20-55); Macrocytosis 1+; Segmented Neutrophils 38 % (50-85); Total Cells Counted 100
[2017-07-07 08:08] LABS: Atypical Lymphocytes Few; Platelet Estimate Decreased
[2017-07-07] MEDS: VORICONAZOLE 200 MG TABLET PO SCH ×2 (08:56→20:51)
[2017-07-07] MEDS: TAMSULOSIN 0.4 MG CAPSULE PO SCH (08:56)
[2017-07-07] MEDS: PANTOPRAZOLE 40 MG TABLET PO SCH (08:56)
[2017-07-07] MEDS: POTASSIUM CHLORIDE 20 MEQ TABLET PO SCH (08:56)
[2017-07-07] MEDS: CETIRIZINE 10 MG TABLET PO SCH (08:56)
[2017-07-07] MEDS: ATROPINE 1 % OPH SOLN 5 ML BOTTLE RIGHT EYE SCH ×2 (08:58→20:50)
[2017-07-07] MEDS: PREDNISOLONE ACETATE 0.12% RIGHT EYE SCH ×4 (08:58→20:53)
[2017-07-07] MEDS: MEGESTROL 40 MG TABLET PO SCH ×3 (09:11→20:51)
[2017-07-07] MEDS: MAGNESIUM OXIDE 400 MG TABLET PO SCH ×2 (09:11→20:51)
[2017-07-07] MEDS: FUROSEMIDE 20 MG TABLET PO SCH (09:11)
[2017-07-07] MEDS: CARVEDILOL 6.25 MG TABLET PO SCH ×2 (09:15→17:28)
[2017-07-07] MEDS ORDERED: POTASSIUM CHLORIDE 20 MEQ TABLET PO ONE (09:50)
[2017-07-07] MEDS ORDERED: ALBUMIN 25% 25 GM in PREMIX 1 EACH IV ONE (10:00)
[2017-07-07] MEDS ORDERED: MAGNESIUM SULF RIDER 4 GM in PREMIX 1 EACH IV ONE (10:00)
[2017-07-07] MEDS ORDERED: POLYETHYLENE GLYCOL POWDER 255 GM BOTTLE PO ONE (13:20)
[2017-07-07] MEDS: FUROSEMIDE 20 MG/2 ML VIAL IV SCH (15:47)
[2017-07-07] MEDS: ACYCLOVIR 200 MG CAPSULE PO SCH (20:51)
[2017-07-08] MEDS: VANCOMYCIN INJ 1,500 MG in SODIUM CHLORIDE 0.9% 500 ML IV SCH ×2 (00:39→13:51)
[2017-07-08] MEDS: ALBUTEROL/IPRATROPIUM 3 ML NEB RESP TX SCH ×4 (01:06→20:15)
[2017-07-08] MEDS: LEVOFLOXACIN INJ 750 MG in PREMIX 1 EACH IV SCH (06:08)
[2017-07-08] MEDS: CARVEDILOL 6.25 MG TABLET PO SCH ×2 (09:49→16:36)
[2017-07-08] MEDS: MEGESTROL 40 MG TABLET PO SCH ×3 (09:49→21:00)
[2017-07-08] MEDS: POTASSIUM CHLORIDE 20 MEQ TABLET PO SCH ×2 (09:50→21:01)
[2017-07-08] MEDS: PREDNISOLONE ACETATE 0.12% RIGHT EYE SCH ×4 (09:50→20:59)
[2017-07-08] MEDS: MAGNESIUM OXIDE 400 MG TABLET PO SCH ×2 (09:50→21:02)
[2017-07-08] MEDS: TAMSULOSIN 0.4 MG CAPSULE PO SCH (09:50)
[2017-07-08] MEDS: PANTOPRAZOLE 40 MG TABLET PO SCH (09:50)
[2017-07-08] MEDS: POLYETHYLENE GLYCOL POWDER 17 GM PACK PO SCH (09:51)
[2017-07-08] MEDS: ATROPINE 1 % OPH SOLN 5 ML BOTTLE RIGHT EYE SCH ×2 (09:51→21:03)
[2017-07-08] MEDS: VORICONAZOLE 200 MG TABLET PO SCH ×2 (09:53→21:00)
[2017-07-08] MEDS: FUROSEMIDE 20 MG/2 ML VIAL IV SCH ×2 (09:55→15:58)
[2017-07-08 10:11] LABS: Basophils % 0.4 % (0.0-0.8); Eosinophils # 0.1 10*3/uL (0.0-0.87); Eosinophils % 1.3 % (0.00-10.9); Hematocrit 26.8 VOL% (42.0-52.0); Hemoglobin 8.6 GM/DL (14.0-18.0); Immature Granulocytes % 0.4 %; Immature Granulocytes Absolute 0.02 #; Lymphocytes # 3.1 10*3/uL (1.4-4.0); Lymphocytes % 66.3 % (21.2-54.2); Mean Corpuscular HGB Conc 32.1 GM/DL (32-36); Mean Corpuscular Hemoglobin 33 PG (27-34); Mean Corpuscular Volume 101.1 FL (87-102); Mean Platelet Volume 10.2 FL (9.6-12.0); Monocytes # 0.5 10*3/uL (0.11-0.8); Monocytes % 10.7 % (1.7-12.7); Neutrophils % 20.9 % (38.7-73.9); Platelet Count 102 T/CUMM (130-400); Red Blood Count 2.65 MC/CUMM (3.8-5.5); Red Cell Distribution Width 16.5 % (9.3-17.3); White Blood Count 4.7 T/CUMM (4-12)
[2017-07-08 10:50] LABS: Albumin 1.9 G/DL (3.4-5.0); Magnesium 1.8 MG/DL (1.8-2.4); Osmolality,Calculated 282.1 MOS/KG (273-304); Potassium 3.3 MMOL/L (3.5-5.1); Total Protein 4.3 G/DL (6.4-8.3)
[2017-07-08 10:51] LABS: Hypochromasia Slight; Lymphocytes 60 % (20-55); Platelet Estimate Decreased; Segmented Neutrophils 29 % (50-85); Total Cells Counted 100
[2017-07-08 10:57] LABS: Basophils % 0.5 % (0.0-0.8); Eosinophils # 0.1 10*3/uL (0.0-0.87); Eosinophils % 1.8 % (0.00-10.9); Hematocrit 27.4 VOL% (42.0-52.0); Hemoglobin 9.1 GM/DL (14.0-18.0); Immature Granulocytes % 0.3 %; Immature Granulocytes Absolute 0.01 #; Lymphocytes # 2.3 10*3/uL (1.4-4.0); Lymphocytes % 59.7 % (21.2-54.2); Mean Corpuscular HGB Conc 33.2 GM/DL (32-36); Mean Corpuscular Hemoglobin 33 PG (27-34); Mean Corpuscular Volume 98.2 FL (87-102); Monocytes # 0.4 10*3/uL (0.11-0.8); Neutrophils % 26.7 % (38.7-73.9); Platelet Count 112 T/CUMM (130-400); Red Blood Count 2.79 MC/CUMM (3.8-5.5); Red Cell Distribution Width 16.7 % (9.3-17.3); White Blood Count 3.9 T/CUMM (4-12)
[2017-07-08 11:25] LABS: Albumin 2.1 G/DL (3.4-5.0); Bilirubin,Total 1.1 MG/DL (0.2-1.0); Calcium 7.3 MG/DL (8.5-10.1); Osmolality,Calculated 281.3 MOS/KG (273-304); Potassium 3.2 MMOL/L (3.5-5.1); Total Protein 4.5 G/DL (6.4-8.3)
[2017-07-08 12:31] LABS: Hypochromasia 1+; Lymphocytes 31 % (20-55); Platelet Estimate Decreased; Polychromasia Slight; Segmented Neutrophils 56 % (50-85); Total Cells Counted 100
[2017-07-08] MEDS: ACYCLOVIR 200 MG CAPSULE PO SCH (21:00)
[2017-07-08] MEDS: ENOXAPARIN 40 MG/0.4 ML SYRINGE SUBCUT SCH (21:06)
[2017-07-09] MEDS: VANCOMYCIN INJ 1,500 MG in SODIUM CHLORIDE 0.9% 500 ML IV SCH ×3 (01:19→18:39)
[2017-07-09] MEDS: ACETAMINOPHEN 325 MG TABLET PO PRN (01:39)
[2017-07-09] MEDS: ALBUTEROL/IPRATROPIUM 3 ML NEB RESP TX SCH ×4 (01:49→21:08)
[2017-07-09 04:15] LABS: Basophils % 0.4 % (0.0-0.8); Eosinophils # 0.1 10*3/uL (0.0-0.87); Eosinophils % 1.1 % (0.00-10.9); Hematocrit 28.2 VOL% (42.0-52.0); Hemoglobin 8.7 GM/DL (14.0-18.0); Immature Granulocytes % 0.2 %; Immature Granulocytes Absolute 0.01 #; Lymphocytes # 3.7 10*3/uL (1.4-4.0); Mean Corpuscular HGB Conc 30.9 GM/DL (32-36); Mean Corpuscular Hemoglobin 31 PG (27-34); Mean Corpuscular Volume 101.8 FL (87-102); Mean Platelet Volume 10.1 FL (9.6-12.0); Monocytes # 0.6 10*3/uL (0.11-0.8); Monocytes % 11.5 % (1.7-12.7); Neutrophils # 1.1 10*3/uL (1.4-7.4); Neutrophils % 19.8 % (38.7-73.9); Platelet Count 110 T/CUMM (130-400); Red Blood Count 2.77 MC/CUMM (3.8-5.5); Red Cell Distribution Width 16.3 % (9.3-17.3); White Blood Count 5.6 T/CUMM (4-12)
[2017-07-09 04:59] LABS: Bilirubin,Total 1.4 MG/DL (0.2-1.0); Calcium 7.2 MG/DL (8.5-10.1); Magnesium 1.5 MG/DL (1.8-2.4); Osmolality,Calculated 282.1 MOS/KG (273-304); Potassium 3.9 MMOL/L (3.5-5.1); Total Protein 4.6 G/DL (6.4-8.3)
[2017-07-09 05:09] LABS: Atypical Lymphocytes Few; Eosinophils 1 % (0-10); Giant Platelets Few; Hypochromasia 1+; Lymphocytes 59 % (20-55); Ovalocytes Slight; Segmented Neutrophils 25 % (50-85); Total Cells Counted 100
[2017-07-09 05:10] LABS: Macrocytosis Slight; Platelet Estimate Decreased; Polychromasia Slight
[2017-07-09] MEDS: LEVOFLOXACIN INJ 750 MG in PREMIX 1 EACH IV SCH (06:28)
[2017-07-09] MEDS ORDERED: MAGNESIUM SULF RIDER 4 GM in PREMIX 1 EACH IV ONE (08:25)
[2017-07-09] MEDS: FUROSEMIDE 40 MG TABLET PO SCH (09:00)
[2017-07-09] MEDS: POTASSIUM CHLORIDE 20 MEQ TABLET PO SCH ×2 (09:00→21:07)
[2017-07-09] MEDS: PANTOPRAZOLE 40 MG TABLET PO SCH (09:00)
[2017-07-09] MEDS: POLYETHYLENE GLYCOL POWDER 17 GM PACK PO SCH (09:01)
[2017-07-09] MEDS: TAMSULOSIN 0.4 MG CAPSULE PO SCH (09:01)
[2017-07-09] MEDS: MAGNESIUM OXIDE 400 MG TABLET PO SCH ×2 (09:01→21:07)
[2017-07-09] MEDS: VORICONAZOLE 200 MG TABLET PO SCH ×2 (09:01→21:08)
[2017-07-09] MEDS: CARVEDILOL 6.25 MG TABLET PO SCH ×2 (09:01→16:12)
[2017-07-09] MEDS: MEGESTROL 40 MG TABLET PO SCH ×3 (09:01→21:07)
[2017-07-09] MEDS: PREDNISOLONE ACETATE 0.12% RIGHT EYE SCH ×4 (09:08→21:10)
[2017-07-09] MEDS: ATROPINE 1 % OPH SOLN 5 ML BOTTLE RIGHT EYE SCH ×2 (09:08→21:10)
[2017-07-09] MEDS: FUROSEMIDE 20 MG/2 ML VIAL IV SCH (09:11)
[2017-07-09] MEDS ORDERED: IMMUNE GLOBULIN 10% 20 GM, IMMUNE GLOBULIN 10% 5 GM in PREMIX 1 EACH IV ONE (09:30)
[2017-07-09] MEDS ORDERED: MYLANTA/LIDO VISC 2:1 300 ML BOTTLE SWISH/SPIT PRN (14:42)
[2017-07-09] MEDS ORDERED: chlorproMAZINE INJ 25 MG in SODIUM CHLORIDE 0.9% 100 ML IV PRN (14:42)
[2017-07-09] MEDS ORDERED: MAGNESIUM HYDROXIDE SUSP 30 ML UDCUP PO PRN (14:42)
[2017-07-09] MEDS ORDERED: chlorproMAZINE 25 MG TABLET PO PRN (14:42)
[2017-07-09] MEDS ORDERED: PROMETHAZINE INJ 25 MG in SODIUM CHLORIDE 0.9% 50 ML IV PRN (14:42)
[2017-07-09] MEDS ORDERED: guaiFENesin 200 MG/10 ML UDCUP PO PRN (14:42)
[2017-07-09] MEDS ORDERED: diphenhydrAMINE CAP 25 MG CAPSULE PO PRN (14:42)
[2017-07-09] MEDS ORDERED: LOPERAMIDE 2 MG CAPSULE PO PRN ×2 (14:42)
[2017-07-09] MEDS ORDERED: LACTULOSE 20 GM/30 ML UDCUP PO PRN (14:42)
[2017-07-09] MEDS ORDERED: MYLANTA/LIDO VISC 2:1 300 ML BOTTLE SWISH/SWAL PRN (14:42)
[2017-07-09] MEDS ORDERED: TEMAZEPAM 7.5 MG CAPSULE PO PRN (14:42)
[2017-07-09] MEDS ORDERED: chlorproMAZINE INJ 50 MG in SODIUM CHLORIDE 0.9% 100 ML IV PRN (14:42)
[2017-07-09] MEDS ORDERED: traMADol 50 MG TABLET PO PRN (14:42)
[2017-07-09] MEDS ORDERED: ONDANSETRON 4 MG/2 ML VIAL IV PRN (14:42)
[2017-07-09] MEDS ORDERED: ALUMINUM/MAGNES/SIMETH MAX STR 30 ML UDCUP PO PRN (14:42)
[2017-07-09] MEDS ORDERED: BENZTROPINE 2 MG/2 ML AMP IV PRN (14:42)
[2017-07-09] MEDS ORDERED: ALPRAZolam 0.25 MG TABLET PO PRN (14:42)
[2017-07-09] MEDS ORDERED: FUROSEMIDE 20 MG TABLET PO SCH (16:30)
[2017-07-09] MEDS: ACYCLOVIR 200 MG CAPSULE PO SCH (21:07)
[2017-07-09] MEDS: ENOXAPARIN 40 MG/0.4 ML SYRINGE SUBCUT SCH (21:11)
[2017-07-10] MEDS: ALBUTEROL/IPRATROPIUM 3 ML NEB RESP TX SCH ×4 (01:09→20:27)
[2017-07-10 05:13] LABS: Basophils % 0.8 % (0.0-0.8); Eosinophils % 0.8 % (0.00-10.9); Hemoglobin 8.3 GM/DL (14.0-18.0); Immature Granulocytes % 0.3 %; Immature Granulocytes Absolute 0.01 #; Lymphocytes # 2.4 10*3/uL (1.4-4.0); Lymphocytes % 65.9 % (21.2-54.2); Mean Corpuscular HGB Conc 31.9 GM/DL (32-36); Mean Corpuscular Hemoglobin 32 PG (27-34); Mean Corpuscular Volume 100.8 FL (87-102); Monocytes # 0.4 10*3/uL (0.11-0.8); Monocytes % 11.4 % (1.7-12.7); Neutrophils # 0.8 10*3/uL (1.4-7.4); Neutrophils % 20.8 % (38.7-73.9); Platelet Count 120 T/CUMM (130-400); Red Blood Count 2.58 MC/CUMM (3.8-5.5); Red Cell Distribution Width 16.7 % (9.3-17.3); White Blood Count 3.7 T/CUMM (4-12)
[2017-07-10 05:37] LABS: Albumin 1.9 G/DL (3.4-5.0); Bilirubin,Total 0.9 MG/DL (0.2-1.0); Calcium 7.3 MG/DL (8.5-10.1); Magnesium 2.2 MG/DL (1.8-2.4); Osmolality,Calculated 281.1 MOS/KG (273-304); Potassium 4.1 MMOL/L (3.5-5.1); Total Protein 4.7 G/DL (6.4-8.3)
[2017-07-10 05:44] LABS: Band Neutrophils 1 % (0-10); Lymphocytes 54 % (20-55); Microcytosis 1+; Platelet Estimate Normal; Segmented Neutrophils 28 % (50-85); Total Cells Counted 100
[2017-07-10] MEDS: LEVOFLOXACIN INJ 750 MG in PREMIX 1 EACH IV SCH (06:05)
[2017-07-10] MEDS: TAMSULOSIN 0.4 MG CAPSULE PO SCH (10:20)
[2017-07-10] MEDS: CARVEDILOL 6.25 MG TABLET PO SCH ×2 (10:20→16:45)
[2017-07-10] MEDS: PANTOPRAZOLE 40 MG TABLET PO SCH (10:20)
[2017-07-10] MEDS: POTASSIUM CHLORIDE 20 MEQ TABLET PO SCH ×2 (10:20→21:45)
[2017-07-10] MEDS: VORICONAZOLE 200 MG TABLET PO SCH ×2 (10:20→21:45)
[2017-07-10] MEDS: FUROSEMIDE 40 MG TABLET PO SCH ×2 (10:20→16:45)
[2017-07-10] MEDS: MEGESTROL 40 MG TABLET PO SCH ×3 (10:21→21:44)
[2017-07-10] MEDS: ATROPINE 1 % OPH SOLN 5 ML BOTTLE RIGHT EYE SCH ×2 (10:21→21:46)
[2017-07-10] MEDS: MAGNESIUM OXIDE 400 MG TABLET PO SCH ×2 (10:21→21:46)
[2017-07-10] MEDS: PREDNISOLONE ACETATE 0.12% RIGHT EYE SCH ×4 (10:21→21:47)
[2017-07-10] MEDS: POLYETHYLENE GLYCOL POWDER 17 GM PACK PO SCH (10:21)
[2017-07-10] MEDS ORDERED: metOLazone 2.5 MG TABLET PO SCH (13:00)
[2017-07-10] MEDS: VANCOMYCIN INJ 1,500 MG in SODIUM CHLORIDE 0.9% 500 ML IV SCH (14:48)
[2017-07-10] MEDS ORDERED: VANCOMYCIN INJ 1,500 MG in SODIUM CHLORIDE 0.9% 300 ML IV SCH (15:00)
[2017-07-10] MEDS: LEVOFLOXACIN 750 MG TABLET PO SCH (16:45)
[2017-07-10] MEDS: ACYCLOVIR 200 MG CAPSULE PO SCH (21:45)
[2017-07-10] MEDS: ENOXAPARIN 40 MG/0.4 ML SYRINGE SUBCUT SCH (21:46)
[2017-07-11] MEDS: ALBUTEROL/IPRATROPIUM 3 ML NEB RESP TX SCH ×4 (01:48→20:24)
[2017-07-11 07:36] LABS: Basophils % 0.5 % (0.0-0.8); Eosinophils # 0.1 10*3/uL (0.0-0.87); Eosinophils % 1.6 % (0.00-10.9); Hematocrit 27.1 VOL% (42.0-52.0); Hemoglobin 8.7 GM/DL (14.0-18.0); Immature Granulocytes % 0.2 %; Immature Granulocytes Absolute 0.01 #; Lymphocytes # 2.9 10*3/uL (1.4-4.0); Lymphocytes % 66.4 % (21.2-54.2); Mean Corpuscular HGB Conc 32.1 GM/DL (32-36); Mean Corpuscular Hemoglobin 32 PG (27-34); Mean Platelet Volume 9.8 FL (9.6-12.0); Monocytes # 0.6 10*3/uL (0.11-0.8); Monocytes % 13.8 % (1.7-12.7); Neutrophils # 0.8 10*3/uL (1.4-7.4); Neutrophils % 17.5 % (38.7-73.9); Platelet Count 136 T/CUMM (130-400); Red Blood Count 2.71 MC/CUMM (3.8-5.5); Red Cell Distribution Width 16.9 % (9.3-17.3); White Blood Count 4.4 T/CUMM (4-12)
[2017-07-11 08:02] LABS: Eosinophils 2 % (0-10); Hypochromasia 2+; Lymphocytes 52 % (20-55); Microcytosis 2+; Platelet Estimate Decreased; Segmented Neutrophils 33 % (50-85); Total Cells Counted 100
[2017-07-11 08:06] LABS: Calcium 7.9 MG/DL (8.5-10.1); Magnesium 1.9 MG/DL (1.8-2.4); Osmolality,Calculated 279.3 MOS/KG (273-304); Potassium 4.5 MMOL/L (3.5-5.1); Total Protein 4.9 G/DL (6.4-8.3)
[2017-07-11] MEDS: CARVEDILOL 6.25 MG TABLET PO SCH ×2 (09:28→17:39)
[2017-07-11] MEDS: MAGNESIUM OXIDE 400 MG TABLET PO SCH ×2 (09:28→20:43)
[2017-07-11] MEDS: PANTOPRAZOLE 40 MG TABLET PO SCH (09:28)
[2017-07-11] MEDS: VORICONAZOLE 200 MG TABLET PO SCH ×2 (09:28→20:43)
[2017-07-11] MEDS: FUROSEMIDE 40 MG TABLET PO SCH ×2 (09:28→17:39)
[2017-07-11] MEDS: POTASSIUM CHLORIDE 20 MEQ TABLET PO SCH ×2 (09:28→20:44)
[2017-07-11] MEDS: LEVOFLOXACIN 750 MG TABLET PO SCH ×2 (09:28→17:42)
[2017-07-11] MEDS: MEGESTROL 40 MG TABLET PO SCH ×3 (09:28→20:44)
[2017-07-11] MEDS: PREDNISOLONE ACETATE 0.12% RIGHT EYE SCH ×4 (09:29→20:46)
[2017-07-11] MEDS: POLYETHYLENE GLYCOL POWDER 17 GM PACK PO SCH (09:29)
[2017-07-11] MEDS: ATROPINE 1 % OPH SOLN 5 ML BOTTLE RIGHT EYE SCH ×2 (09:29→20:45)
[2017-07-11] MEDS: TAMSULOSIN 0.4 MG CAPSULE PO SCH (09:29)
[2017-07-11] MEDS ORDERED: VANCOMYCIN INJ 1,000 MG in SODIUM CHLORIDE 0.9% 250 ML IV ONE (12:00)
[2017-07-11] MEDS: ACYCLOVIR 200 MG CAPSULE PO SCH (20:44)
[2017-07-11] MEDS: ENOXAPARIN 40 MG/0.4 ML SYRINGE SUBCUT SCH (20:45)
[2017-07-12] MEDS: ALBUTEROL/IPRATROPIUM 3 ML NEB RESP TX SCH ×4 (00:42→20:06)
[2017-07-12] MEDS ORDERED: MEPERIDINE 50 MG/1 ML VIAL IM ONE (07:00)
[2017-07-12] MEDS ORDERED: LIDOCAINE 2% VISCOUS 100 ML BOTTLE SWISH/SPIT ONE (07:00)
[2017-07-12] MEDS ORDERED: LIDOCAINE 2% 20 ML VIAL RESP TX ONE (07:00)
[2017-07-12] MEDS ORDERED: GLYCOPYRROLATE 0.4 MG/2 ML VIAL IM ONE (07:00)
[2017-07-12] MEDS ORDERED: PROMETHAZINE 25 MG/1 ML VIAL IM ONE (07:00)
[2017-07-12] MEDS ORDERED: MIDAZOLAM 2 MG/2 ML VIAL ONE (07:02)
[2017-07-12] MEDS ORDERED: LIDOCAINE 1% 20 ML VIAL MISC INJ ONE (07:30)
[2017-07-12] MEDS ORDERED: MIDAZOLAM 2 MG/2 ML VIAL IV ONE (07:30)
[2017-07-12 09:38] LABS: Albumin 2.2 G/DL (3.4-5.0); Bilirubin,Direct 0.5 MG/DL (0.0-0.20); Bilirubin,Indirect 0.4 MG/DL (0.0-1.0); Bilirubin,Total 0.9 MG/DL (0.2-1.0); Calcium 8.3 MG/DL (8.5-10.1); Osmolality,Calculated 274.7 MOS/KG (273-304); Potassium 4.5 MMOL/L (3.5-5.1)
[2017-07-12] MEDS: FUROSEMIDE 40 MG TABLET PO SCH ×2 (10:14→16:52)
[2017-07-12] MEDS: PANTOPRAZOLE 40 MG TABLET PO SCH (10:15)
[2017-07-12] MEDS: TAMSULOSIN 0.4 MG CAPSULE PO SCH (10:15)
[2017-07-12] MEDS: MAGNESIUM OXIDE 400 MG TABLET PO SCH ×2 (10:15→22:14)
[2017-07-12] MEDS: MEGESTROL 40 MG TABLET PO SCH ×3 (10:15→22:14)
[2017-07-12] MEDS: POTASSIUM CHLORIDE 20 MEQ TABLET PO SCH ×2 (10:15→22:16)
[2017-07-12] MEDS: ATROPINE 1 % OPH SOLN 5 ML BOTTLE RIGHT EYE SCH ×2 (10:16→22:15)
[2017-07-12] MEDS: VORICONAZOLE 200 MG TABLET PO SCH ×2 (10:16→22:14)
[2017-07-12] MEDS: PREDNISOLONE ACETATE 0.12% RIGHT EYE SCH ×4 (10:16→22:17)
[2017-07-12 10:24] LABS: Basophils % 0.5 % (0.0-0.8); Eosinophils # 0.1 10*3/uL (0.0-0.87); Eosinophils % 1.2 % (0.00-10.9); Hematocrit 30.7 VOL% (42.0-52.0); Immature Granulocytes % 0.2 %; Immature Granulocytes Absolute 0.01 #; Lymphocytes # 2.6 10*3/uL (1.4-4.0); Lymphocytes % 64.2 % (21.2-54.2); Mean Corpuscular HGB Conc 32.6 GM/DL (32-36); Mean Corpuscular Hemoglobin 33 PG (27-34); Mean Corpuscular Volume 99.7 FL (87-102); Mean Platelet Volume 9.8 FL (9.6-12.0); Monocytes # 0.5 10*3/uL (0.11-0.8); Monocytes % 12.8 % (1.7-12.7); Neutrophils # 0.9 10*3/uL (1.4-7.4); Neutrophils % 21.1 % (38.7-73.9); Platelet Count 162 T/CUMM (130-400); Red Blood Count 3.08 MC/CUMM (3.8-5.5); Red Cell Distribution Width 16.7 % (9.3-17.3); White Blood Count 4.1 T/CUMM (4-12)
[2017-07-12 10:38] LABS: Albumin 2.3 G/DL (3.4-5.0); Bilirubin,Total 1.1 MG/DL (0.2-1.0); Calcium 8.6 MG/DL (8.5-10.1); Osmolality,Calculated 276.5 MOS/KG (273-304); Potassium 4.5 MMOL/L (3.5-5.1); Total Protein 5.1 G/DL (6.4-8.3)
[2017-07-12 10:48] LABS: Eosinophils 1 % (0-10); Hypochromasia 1+; Lymphocytes 63 % (20-55); Segmented Neutrophils 23 % (50-85); Total Cells Counted 100
[2017-07-12 10:49] LABS: Platelet Estimate Adequate
[2017-07-12] MEDS: POLYETHYLENE GLYCOL POWDER 17 GM PACK PO SCH (10:56)
[2017-07-12] MEDS: PILOCARPINE 5 MG TABLET PO SCH ×2 (15:26→22:13)
[2017-07-12] MEDS: MUPIROCIN 2% OINT 22 GM TUBE TOP SCH ×2 (16:53→22:17)
[2017-07-12] MEDS: ACYCLOVIR 200 MG CAPSULE PO SCH (22:13)
[2017-07-12] MEDS: ENOXAPARIN 40 MG/0.4 ML SYRINGE SUBCUT SCH (22:26)
[2017-07-13] MEDS: ALBUTEROL/IPRATROPIUM 3 ML NEB RESP TX SCH ×2 (00:36→07:55)
[2017-07-13 07:32] LABS: Anti SS-A Antibodies < 16 EU/ML; Anti SS-B Antibodies < 16 EU/ML
[2017-07-13] MEDS ORDERED: FUROSEMIDE 40 MG TABLET PO SCH (08:13)
[2017-07-13] MEDS ORDERED: FUROSEMIDE 20 MG TABLET PO SCH (08:13)
[2017-07-13] MEDS: MAGNESIUM OXIDE 400 MG TABLET PO SCH (08:36)
[2017-07-13] MEDS: PILOCARPINE 5 MG TABLET PO SCH (08:36)
[2017-07-13] MEDS: POTASSIUM CHLORIDE 20 MEQ TABLET PO SCH (08:36)
[2017-07-13] MEDS: PANTOPRAZOLE 40 MG TABLET PO SCH (08:37)
[2017-07-13] MEDS: ATROPINE 1 % OPH SOLN 5 ML BOTTLE RIGHT EYE SCH (08:37)
[2017-07-13] MEDS: MEGESTROL 40 MG TABLET PO SCH (08:37)
[2017-07-13] MEDS: VORICONAZOLE 200 MG TABLET PO SCH (08:37)
[2017-07-13] MEDS: PREDNISOLONE ACETATE 0.12% RIGHT EYE SCH (08:37)
[2017-07-13] MEDS: TAMSULOSIN 0.4 MG CAPSULE PO SCH (08:37)
[2017-07-13] MEDS: MUPIROCIN 2% OINT 22 GM TUBE TOP SCH (08:38)
[2017-07-13] MEDS ORDERED: ALBUTEROL 1.25 MG/3 ML NEB RESP TX SCH (09:00)
[2017-07-13] MEDS ORDERED: TUBERCULIN SKIN TEST 0.1 ML SYRINGE INTRADERM ONE (10:00)
[2017-07-13] MEDS: POLYETHYLENE GLYCOL POWDER 17 GM PACK PO SCH (10:59)
[2017-07-13 12:07] VITALS: BP 121/66
[2017-07-14] MEDS ORDERED: ALBUTEROL 1.25 MG/3 ML NEB RESP TX SCH (19:00)
== END 2017-07-13 13:30 | disposition home or self-care (01) | DRG 868 ==
LOC: N.ED 20:49 → SUATTDRO 07-06 04:48 → N.EDINP 07-06 04:48 → N.4E 07-06 05:19
PROVIDERS: ADMIT Internal Medicine; ATTEND Specialist

== ENCOUNTER 2017-07-29 11:08 | Inpatient (IN) ==
[2017-07-29] MEDS ORDERED: MORPHINE 2 MG/1 ML SYRINGE IV PRN (13:53)
[2017-07-29 14:59] LABS: Basophils % 0.1 % (0.0-0.8); Eosinophils % 0.1 % (0.00-10.9); Hematocrit 28.8 VOL% (42.0-52.0); Hemoglobin 9.7 GM/DL (14.0-18.0); Immature Granulocytes % 0.6 %; Immature Granulocytes Absolute 0.04 #; Lymphocytes # 2.2 10*3/uL (1.4-4.0); Lymphocytes % 29.7 % (21.2-54.2); Mean Corpuscular HGB Conc 33.7 GM/DL (32-36); Mean Corpuscular Hemoglobin 33 PG (27-34); Mean Platelet Volume 9.8 FL (9.6-12.0); Monocytes # 0.8 10*3/uL (0.11-0.8); Monocytes % 11.1 % (1.7-12.7); Neutrophils # 4.2 10*3/uL (1.4-7.4); Neutrophils % 58.4 % (38.7-73.9); Platelet Count 120 T/CUMM (130-400); Red Blood Count 2.94 MC/CUMM (3.8-5.5); Red Cell Distribution Width 16.1 % (9.3-17.3); White Blood Count 7.3 T/CUMM (4-12)
[2017-07-29 15:25] LABS: Bilirubin,Total 0.9 MG/DL (0.2-1.0); Calcium 8.2 MG/DL (8.5-10.1); Osmolality,Calculated 290.8 MOS/KG (273-304); Potassium 3.5 MMOL/L (3.5-5.1)
[2017-07-29] MEDS ORDERED: IPRATROPIUM 500 MCG/2.5 ML NEB RESP TX PRN (15:25)
[2017-07-29] MEDS ORDERED: ACETAMINOPHEN 500 MG TABLET PO PRN (15:25)
[2017-07-29] MEDS ORDERED: ALBUTEROL 1.25 MG/3 ML NEB RESP TX PRN (15:25)
[2017-07-29] MEDS ORDERED: guaiFENesin 200 MG/10 ML UDCUP PO PRN (15:52)
[2017-07-29] MEDS ORDERED: ALPRAZolam 0.25 MG TABLET PO PRN (15:52)
[2017-07-29] MEDS ORDERED: MYLANTA/LIDO VISC 2:1 300 ML BOTTLE SWISH/SPIT PRN (15:52)
[2017-07-29] MEDS ORDERED: traMADol 50 MG TABLET PO PRN (15:52)
[2017-07-29] MEDS ORDERED: ALUMINUM/MAGNES/SIMETH MAX STR 30 ML UDCUP PO PRN (15:52)
[2017-07-29] MEDS ORDERED: chlorproMAZINE 25 MG TABLET PO PRN (15:52)
[2017-07-29] MEDS ORDERED: chlorproMAZINE INJ 25 MG in SODIUM CHLORIDE 0.9% 100 ML IV PRN (15:52)
[2017-07-29] MEDS ORDERED: TEMAZEPAM 7.5 MG CAPSULE PO PRN (15:52)
[2017-07-29] MEDS ORDERED: MYLANTA/LIDO VISC 2:1 300 ML BOTTLE SWISH/SWAL PRN (15:52)
[2017-07-29] MEDS ORDERED: diphenhydrAMINE CAP 25 MG CAPSULE PO PRN (15:52)
[2017-07-29] MEDS ORDERED: LACTULOSE 20 GM/30 ML UDCUP PO PRN (15:52)
[2017-07-29] MEDS ORDERED: chlorproMAZINE INJ 50 MG in SODIUM CHLORIDE 0.9% 100 ML IV PRN (15:52)
[2017-07-29] MEDS ORDERED: MAGNESIUM HYDROXIDE SUSP 30 ML UDCUP PO PRN (15:52)
[2017-07-29] MEDS ORDERED: LOPERAMIDE 2 MG CAPSULE PO PRN ×2 (15:52)
[2017-07-29] MEDS ORDERED: PROMETHAZINE INJ 25 MG in SODIUM CHLORIDE 0.9% 50 ML IV PRN (15:52)
[2017-07-29] MEDS ORDERED: ONDANSETRON 4 MG/2 ML VIAL IV PRN (15:52)
[2017-07-29] MEDS ORDERED: BENZTROPINE 2 MG/2 ML AMP IV PRN (15:52)
[2017-07-29] MEDS: ENOXAPARIN 40 MG/0.4 ML SYRINGE SUBCUT SCH (16:07)
[2017-07-29] MEDS: IBUPROFEN 400 MG TABLET PO SCH ×2 (16:07→20:31)
[2017-07-29] MEDS: PREDNISOLONE ACETATE 0.12% RIGHT EYE SCH ×2 (16:19→20:36)
[2017-07-29] MEDS: CARVEDILOL 6.25 MG TABLET PO SCH (16:22)
[2017-07-29 16:32] LABS: Basophils % 0.1 % (0.0-0.8); Hematocrit 30.1 VOL% (42.0-52.0); Immature Granulocytes % 0.5 %; Immature Granulocytes Absolute 0.04 #; Lymphocytes # 3.1 10*3/uL (1.4-4.0); Lymphocytes % 36.8 % (21.2-54.2); Mean Corpuscular HGB Conc 33.2 GM/DL (32-36); Mean Corpuscular Hemoglobin 33 PG (27-34); Mean Corpuscular Volume 99.7 FL (87-102); Mean Platelet Volume 9.6 FL (9.6-12.0); Monocytes # 0.9 10*3/uL (0.11-0.8); Monocytes % 10.2 % (1.7-12.7); Neutrophils # 4.4 10*3/uL (1.4-7.4); Neutrophils % 52.4 % (38.7-73.9); Platelet Count 135 T/CUMM (130-400); Red Blood Count 3.02 MC/CUMM (3.8-5.5); Red Cell Distribution Width 16.3 % (9.3-17.3); White Blood Count 8.4 T/CUMM (4-12)
[2017-07-29 16:54] LABS: Albumin 3.1 G/DL (3.4-5.0); Bilirubin,Total 0.9 MG/DL (0.2-1.0); Calcium 8.6 MG/DL (8.5-10.1); Total Protein 6.2 G/DL (6.4-8.3)
[2017-07-29 16:55] LABS: Potassium 3.4 MMOL/L (3.5-5.1); Uric Acid 6.9 MG/DL (3.5-7.2)
[2017-07-29 17:09] LABS: Apearance,Urine CLEAR (Clear); Bilirubin,Urine Negative (Negative); Blood, Urine Negative (Negative); Glucose,Urine (UA) Negative (Negative); Ketones,Urine Negative (Negative); Mucus,Urine Occasional /LPF (Occasional); Nitrite,Urine Negative (Negative); Protein,Urine Negative; RBC,Urine <1 /HPF (0-4); Urine Color Yellow (Yellow); Urine Specific Gravity 1.013 (1.001-1.035); Urine Urobilinogen < 2.0 EU/DL (0.2-1.0); WBC,Urine 1 /HPF (0-6)
[2017-07-29] MEDS: VORICONAZOLE 200 MG TABLET PO SCH (20:30)
[2017-07-29] MEDS: PILOCARPINE 5 MG TABLET PO SCH (20:31)
[2017-07-29] MEDS: MAGNESIUM OXIDE 400 MG TABLET PO SCH (20:31)
[2017-07-29] MEDS ORDERED: ACYCLOVIR 200 MG CAPSULE PO SCH (21:00)
[2017-07-29] MEDS: ATROPINE 1 % OPH SOLN 5 ML BOTTLE RIGHT EYE SCH (21:05)
[2017-07-30 05:30] LABS: Basophils % 0.4 % (0.0-0.8); Eosinophils % 0.6 % (0.00-10.9); Hemoglobin 8.5 GM/DL (14.0-18.0); Immature Granulocytes % 0.4 %; Immature Granulocytes Absolute 0.02 #; Lymphocytes # 2.3 10*3/uL (1.4-4.0); Lymphocytes % 47.6 % (21.2-54.2); Mean Corpuscular Hemoglobin 34 PG (27-34); Mean Corpuscular Volume 98.4 FL (87-102); Mean Platelet Volume 9.9 FL (9.6-12.0); Monocytes # 0.7 10*3/uL (0.11-0.8); Monocytes % 14.3 % (1.7-12.7); Neutrophils # 1.8 10*3/uL (1.4-7.4); Neutrophils % 36.7 % (38.7-73.9); Platelet Count 104 T/CUMM (130-400); Red Blood Count 2.54 MC/CUMM (3.8-5.5); Red Cell Distribution Width 15.9 % (9.3-17.3); White Blood Count 4.9 T/CUMM (4-12)
[2017-07-30 06:04] LABS: Hypochromasia 1+; Lymphocytes 48 % (20-55); Segmented Neutrophils 43 % (50-85); Total Cells Counted 100
[2017-07-30 06:05] LABS: Atypical Lymphocytes Few; Microcytosis 1+; Ovalocytes Slight; Platelet Estimate Decreased
[2017-07-30] MEDS ORDERED: FUROSEMIDE 40 MG TABLET PO SCH (08:00)
[2017-07-30] MEDS ORDERED: LACTOBACILLUS ACIDOPHILUS/BULGARICUS CAPLET PO SCH (09:00)
[2017-07-30] MEDS ORDERED: TAMSULOSIN 0.4 MG CAPSULE PO SCH (09:00)
[2017-07-30] MEDS ORDERED: POTASSIUM CHLORIDE 20 MEQ TABLET PO SCH (09:00)
[2017-07-30] MEDS ORDERED: CETIRIZINE 10 MG TABLET PO SCH (09:00)
[2017-07-30] MEDS ORDERED: PANTOPRAZOLE 40 MG TABLET PO SCH (09:00)
[2017-07-30] MEDS ORDERED: IMMUNE GLOBULIN 10% 20 GM, IMMUNE GLOBULIN 10% 5 GM in PREMIX 1 EACH IV ONE (09:06)
[2017-07-30] MEDS: PILOCARPINE 5 MG TABLET PO SCH ×2 (10:40→14:35)
[2017-07-30] MEDS: VORICONAZOLE 200 MG TABLET PO SCH (10:40)
[2017-07-30] MEDS: MAGNESIUM OXIDE 400 MG TABLET PO SCH (10:41)
[2017-07-30] MEDS: IBUPROFEN 400 MG TABLET PO SCH ×2 (10:41→14:34)
[2017-07-30] MEDS: CARVEDILOL 6.25 MG TABLET PO SCH (10:42)
[2017-07-30] MEDS: PREDNISOLONE ACETATE 0.12% RIGHT EYE SCH ×2 (10:44→14:35)
[2017-07-30] MEDS: ATROPINE 1 % OPH SOLN 5 ML BOTTLE RIGHT EYE SCH (11:41)
[2017-07-30 12:28] VITALS: BP 146/78
[2017-07-30] MEDS: ENOXAPARIN 40 MG/0.4 ML SYRINGE SUBCUT SCH (14:35)
== END 2017-07-30 15:58 | disposition home health service (06) | DRG 204 ==
LOC: N.4E 13:11
PROVIDERS: ADMIT Specialist; ATTEND Specialist

== ENCOUNTER 2019-10-28 09:29 | Inpatient (IN) ==
[2019-10-28] MEDS ORDERED: cefTRIAXone 1,000 MG in SODIUM CHLORIDE 0.9% 100 ML IV STA (09:51)
[2019-10-28] MEDS ORDERED: AZITHROMYCIN 250 MG TABLET PO STA (09:51)
[2019-10-28] MEDS ORDERED: ZINC SULFATE 220 MG CAPSULE PO SCH (10:00)
[2019-10-28 10:40] LABS: Albumin 3.8 G/DL (3.4-5.0); Bilirubin,Total 1.2 MG/DL (0.2-1.0); Calcium 8.6 MG/DL (8.5-10.1); Total Protein 6.9 G/DL (6.4-8.3)
[2019-10-28 10:45] LABS: Basophils % 0.3 % (0.0-0.8); Hemoglobin 16.3 GM/DL (14.0-18.0); Immature Granulocytes % 0.8 %; Immature Granulocytes Absolute 0.05 #; Lymphocytes # 0.9 10*3/uL (1.4-4.0); Lymphocytes % 15.1 % (21.2-54.2); Mean Corpuscular Volume 97.2 FL (87-102); Mean Platelet Volume 9.3 FL (9.6-12.0); Monocytes % 6.1 % (1.7-12.7); Neutrophils % 77.7 % (38.7-73.9); Platelet Count 77 T/CUMM (130-400); Red Blood Count 4.94 MC/CUMM (3.8-5.5); Red Cell Distribution Width 14.8 % (9.3-17.3)
[2019-10-28] MEDS ORDERED: ENOXAPARIN 30 MG/0.3 ML SYRINGE SUBCUT SCH (11:00)
[2019-10-28] MEDS: ACETAMINOPHEN 325 MG TABLET PO PRN ×2 (12:57→18:27)
[2019-10-28 13:09] LABS: Platelet Estimate Decreased; Polychromasia Slight
[2019-10-28] MEDS: SODIUM CHLORIDE 0.45% 1,000 ML IV SCH (14:08)
[2019-10-28] MEDS: FLUTICASONE 50 MCG NASAL SPRAY 16 GM BOTTLE BOTH NARES SCH (20:30)
[2019-10-28] MEDS: SERTRALINE 25 MG TABLET PO SCH (20:30)
[2019-10-28] MEDS: TAMSULOSIN 0.4 MG CAPSULE PO SCH (20:30)
[2019-10-28] MEDS: HYDROXYCHLOROQUINE 200 MG TABLET PO SCH (20:30)
[2019-10-28] MEDS: MONTELUKAST 10 MG TABLET PO SCH (20:30)
[2019-10-28] MEDS: ACYCLOVIR 200 MG CAPSULE PO SCH (20:30)
[2019-10-28] MEDS: ALPHA LIPOIC ACID 600 MG PO SCH (20:43)
[2019-10-29] MEDS: ACETAMINOPHEN 325 MG TABLET PO PRN ×2 (00:27→17:04)
[2019-10-29] MEDS: SODIUM CHLORIDE 0.45% 1,000 ML IV SCH ×3 (03:47→21:07)
[2019-10-29 05:33] LABS: Basophils % 0.3 % (0.0-0.8); Hematocrit 30.8 VOL% (42.0-52.0); Hemoglobin 10.4 GM/DL (14.0-18.0); Immature Granulocytes % 1.6 %; Immature Granulocytes Absolute 0.16 #; Lymphocytes # 2.1 10*3/uL (1.4-4.0); Lymphocytes % 21.2 % (21.2-54.2); Mean Corpuscular HGB Conc 33.8 GM/DL (32-36); Mean Corpuscular Volume 98.7 FL (87-102); Mean Platelet Volume 9.3 FL (9.6-12.0); Monocytes % 5.7 % (1.7-12.7); Neutrophils % 71.2 % (38.7-73.9); Platelet Count 108 T/CUMM (130-400); Red Blood Count 3.12 MC/CUMM (3.8-5.5); White Blood Count 9.8 T/CUMM (4-12)
[2019-10-29 06:20] LABS: Calcium 8.4 MG/DL (8.5-10.1)
[2019-10-29] MEDS: cefTRIAXone 1,000 MG in SYRINGE 1 EACH IV SCH ×2 (08:36→10:16)
[2019-10-29] MEDS: APIXABAN 2.5 MG TABLET PO SCH (08:37)
[2019-10-29] MEDS: PANTOPRAZOLE 40 MG TABLET PO SCH (08:37)
[2019-10-29] MEDS: TAMSULOSIN 0.4 MG CAPSULE PO SCH ×2 (08:37→21:06)
[2019-10-29] MEDS: CETIRIZINE 10 MG TABLET PO SCH (08:37)
[2019-10-29] MEDS: AZITHROMYCIN 250 MG TABLET PO SCH (08:37)
[2019-10-29] MEDS: FINASTERIDE 5 MG TABLET PO SCH (08:37)
[2019-10-29] MEDS: HYDROXYCHLOROQUINE 200 MG TABLET PO SCH (08:37)
[2019-10-29] MEDS: FLUTICASONE 50 MCG NASAL SPRAY 16 GM BOTTLE BOTH NARES SCH ×2 (08:38→21:07)
[2019-10-29] MEDS: ALPHA LIPOIC ACID 600 MG PO SCH ×2 (08:49→21:04)
[2019-10-29 11:15] LABS: Hypochromasia Slight; Ovalocytes Few; Tear Drop Cells Slight
[2019-10-29 11:16] LABS: Anisocytosis 1+; Microcytosis 1+; Platelet Estimate Adequate
[2019-10-29] MEDS: traMADol 50 MG TABLET PO PRN (17:02)
[2019-10-29] MEDS ORDERED: HYDROXYCHLOROQUINE 200 MG TABLET PO SCH (21:00)
[2019-10-29] MEDS: ACYCLOVIR 200 MG CAPSULE PO SCH (21:06)
[2019-10-29] MEDS: SERTRALINE 25 MG TABLET PO SCH (21:06)
[2019-10-29] MEDS: MONTELUKAST 10 MG TABLET PO SCH (21:06)
[2019-10-30 05:48] LABS: Basophils % 0.4 % (0.0-0.8); Eosinophils % 0.1 % (0.00-10.9); Hematocrit 28.8 VOL% (42.0-52.0); Hemoglobin 9.9 GM/DL (14.0-18.0); Immature Granulocytes % 2.2 %; Immature Granulocytes Absolute 0.16 #; Lymphocytes % 27.9 % (21.2-54.2); Mean Corpuscular HGB Conc 34.4 GM/DL (32-36); Mean Platelet Volume 9.3 FL (9.6-12.0); Monocytes % 4.8 % (1.7-12.7); Neutrophils % 64.6 % (38.7-73.9); Platelet Count 94 T/CUMM (130-400); White Blood Count 7.3 T/CUMM (4-12)
[2019-10-30 06:07] LABS: Calcium 8.5 MG/DL (8.5-10.1); Osmolality,Calculated 274.2 MOS/KG (273-304); Total Protein 6.8 G/DL (6.4-8.3)
[2019-10-30] MEDS: SODIUM CHLORIDE 0.45% 1,000 ML IV SCH ×2 (06:26→12:24)
[2019-10-30] MEDS: ACETAMINOPHEN 325 MG TABLET PO PRN ×2 (06:27→17:22)
[2019-10-30 06:36] LABS: Hypochromasia 1+; Microcytosis 1+; Ovalocytes Slight; Platelet Estimate Decreased
[2019-10-30 07:44] LABS: % Iron Saturation 14.9 % (18-50); Ferritin 1237.3 ng/ml (26-388)
[2019-10-30] MEDS: ALPHA LIPOIC ACID 600 MG PO SCH ×2 (09:22→21:17)
[2019-10-30 09:37] LABS: Folate 7.3 NG/ML (5.4-24.0)
[2019-10-30] MEDS: APIXABAN 2.5 MG TABLET PO SCH (09:41)
[2019-10-30] MEDS: PANTOPRAZOLE 40 MG TABLET PO SCH (09:41)
[2019-10-30] MEDS: cefTRIAXone 1,000 MG in SYRINGE 1 EACH IV SCH (09:41)
[2019-10-30] MEDS: TAMSULOSIN 0.4 MG CAPSULE PO SCH ×2 (09:41→21:17)
[2019-10-30] MEDS: FLUTICASONE 50 MCG NASAL SPRAY 16 GM BOTTLE BOTH NARES SCH ×2 (09:41→21:17)
[2019-10-30] MEDS: FINASTERIDE 5 MG TABLET PO SCH (09:41)
[2019-10-30] MEDS: AZITHROMYCIN 250 MG TABLET PO SCH (09:41)
[2019-10-30] MEDS: CETIRIZINE 10 MG TABLET PO SCH (09:42)
[2019-10-30 14:13] LABS: Apearance,Urine CLEAR (Clear); Bilirubin,Urine Negative (Negative); Blood, Urine Negative (Negative); Glucose,Urine (UA) Negative (Negative); Ketones,Urine Negative (Negative); Nitrite,Urine Negative (Negative); Protein,Urine Negative; RBC,Urine 1 /HPF (0-4); Urine Color Yellow (Yellow); Urine Urobilinogen < 2.0 EU/DL (0.2-1.0); WBC,Urine 1 /HPF (0-6)
[2019-10-30] MEDS: traMADol 50 MG TABLET PO PRN (17:22)
[2019-10-30] MEDS: SERTRALINE 25 MG TABLET PO SCH (21:17)
[2019-10-30] MEDS: MONTELUKAST 10 MG TABLET PO SCH (21:17)
[2019-10-30] MEDS: ACYCLOVIR 200 MG CAPSULE PO SCH (21:17)
[2019-10-31] MEDS: ACETAMINOPHEN 325 MG TABLET PO PRN ×2 (00:20→23:05)
[2019-10-31 05:46] LABS: Basophils % 0.4 % (0.0-0.8); Eosinophils % 0.2 % (0.00-10.9); Hematocrit 28.2 VOL% (42.0-52.0); Hemoglobin 9.3 GM/DL (14.0-18.0); Immature Granulocytes % 1.4 %; Immature Granulocytes Absolute 0.07 #; Lymphocytes # 1.6 10*3/uL (1.4-4.0); Lymphocytes % 32.1 % (21.2-54.2); Mean Corpuscular Volume 98.6 FL (87-102); Mean Platelet Volume 9.3 FL (9.6-12.0); Monocytes % 6.5 % (1.7-12.7); Neutrophils % 59.4 % (38.7-73.9); Platelet Count 92 T/CUMM (130-400); Red Blood Count 2.86 MC/CUMM (3.8-5.5); Red Cell Distribution Width 14.8 % (9.3-17.3); White Blood Count 5.1 T/CUMM (4-12)
[2019-10-31 06:09] LABS: Atypical Lymphocytes Few; Band Neutrophils 2 % (0-10); Eosinophils 1 % (0-10); Hypochromasia 1+; Lymphocytes 28 % (20-55); Microcytosis 1+; Segmented Neutrophils 63 % (50-85); Total Cells Counted 100
[2019-10-31 06:10] LABS: Ovalocytes Slight; Platelet Estimate Decreased
[2019-10-31] MEDS: APIXABAN 2.5 MG TABLET PO SCH (09:00)
[2019-10-31] MEDS: cefTRIAXone 1,000 MG in SYRINGE 1 EACH IV SCH (09:00)
[2019-10-31] MEDS: TAMSULOSIN 0.4 MG CAPSULE PO SCH ×2 (09:42→20:15)
[2019-10-31] MEDS: FLUTICASONE 50 MCG NASAL SPRAY 16 GM BOTTLE BOTH NARES SCH ×2 (09:42→20:16)
[2019-10-31] MEDS: FINASTERIDE 5 MG TABLET PO SCH (09:42)
[2019-10-31] MEDS: PANTOPRAZOLE 40 MG TABLET PO SCH (09:42)
[2019-10-31] MEDS: ALPHA LIPOIC ACID 600 MG PO SCH ×2 (09:42→20:23)
[2019-10-31] MEDS: AZITHROMYCIN 250 MG TABLET PO SCH (09:44)
[2019-10-31] MEDS: CETIRIZINE 10 MG TABLET PO SCH (09:44)
[2019-10-31] MEDS: SODIUM CHLORIDE 0.45% 1,000 ML IV SCH (18:14)
[2019-10-31] MEDS: ACYCLOVIR 200 MG CAPSULE PO SCH (20:16)
[2019-10-31] MEDS: SERTRALINE 25 MG TABLET PO SCH (20:16)
[2019-10-31] MEDS: MONTELUKAST 10 MG TABLET PO SCH (20:16)
[2019-11-01 06:10] LABS: Basophils % 0.4 % (0.0-0.8); Eosinophils % 0.4 % (0.00-10.9); Hematocrit 25.5 VOL% (42.0-52.0); Hemoglobin 8.8 GM/DL (14.0-18.0); Immature Granulocytes % 1.2 %; Immature Granulocytes Absolute 0.06 #; Lymphocytes # 1.8 10*3/uL (1.4-4.0); Lymphocytes % 35.5 % (21.2-54.2); Mean Corpuscular HGB Conc 34.5 GM/DL (32-36); Mean Corpuscular Volume 95.9 FL (87-102); Mean Platelet Volume 9.6 FL (9.6-12.0); Monocytes % 5.8 % (1.7-12.7); Neutrophils % 56.7 % (38.7-73.9); Platelet Count 114 T/CUMM (130-400); Red Blood Count 2.66 MC/CUMM (3.8-5.5); Red Cell Distribution Width 14.9 % (9.3-17.3); White Blood Count 5.2 T/CUMM (4-12)
[2019-11-01] MEDS: ALPHA LIPOIC ACID 600 MG PO SCH ×2 (09:38→22:21)
[2019-11-01] MEDS: FLUTICASONE 50 MCG NASAL SPRAY 16 GM BOTTLE BOTH NARES SCH ×2 (09:39→22:21)
[2019-11-01] MEDS: cefTRIAXone 1,000 MG in SYRINGE 1 EACH IV SCH (09:39)
[2019-11-01] MEDS: FINASTERIDE 5 MG TABLET PO SCH (09:40)
[2019-11-01] MEDS: TAMSULOSIN 0.4 MG CAPSULE PO SCH ×2 (09:40→20:35)
[2019-11-01] MEDS: PANTOPRAZOLE 40 MG TABLET PO SCH (09:40)
[2019-11-01] MEDS: CETIRIZINE 10 MG TABLET PO SCH (09:40)
[2019-11-01] MEDS: AZITHROMYCIN 250 MG TABLET PO SCH (09:55)
[2019-11-01] MEDS: ACYCLOVIR 200 MG CAPSULE PO SCH (20:34)
[2019-11-01] MEDS: MONTELUKAST 10 MG TABLET PO SCH (20:35)
[2019-11-01] MEDS: SERTRALINE 25 MG TABLET PO SCH (20:35)
[2019-11-02] MEDS: SODIUM CHLORIDE 0.45% 1,000 ML IV SCH ×3 (05:48→22:24)
[2019-11-02] MEDS ORDERED: MEPERIDINE 50 MG/1 ML VIAL IM ONE (08:00)
[2019-11-02] MEDS ORDERED: PROMETHAZINE 25 MG/1 ML VIAL IM ONE (08:00)
[2019-11-02] MEDS ORDERED: GLYCOPYRROLATE 0.4 MG/2 ML VIAL IM ONE (08:00)
[2019-11-02] MEDS ORDERED: MIDAZOLAM 2 MG/2 ML VIAL ONE (08:06)
[2019-11-02] MEDS ORDERED: LIDOCAINE 1% 20 ML VIAL MISC INJ ONE (08:30)
[2019-11-02] MEDS ORDERED: LIDOCAINE 2% VISCOUS 100 ML BOTTLE SWISH/SPIT ONE (08:30)
[2019-11-02] MEDS ORDERED: LIDOCAINE 2% 20 ML VIAL RESP TX ONE (08:30)
[2019-11-02] MEDS ORDERED: MIDAZOLAM 2 MG/2 ML VIAL IV ONE (08:30)
[2019-11-02 08:47] LABS: Basophils % 0.5 % (0.0-0.8); Eosinophils % 0.9 % (0.00-10.9); Hematocrit 26.5 VOL% (42.0-52.0); Hemoglobin 8.8 GM/DL (14.0-18.0); Immature Granulocytes % 0.9 %; Immature Granulocytes Absolute 0.04 #; Lymphocytes # 1.4 10*3/uL (1.4-4.0); Lymphocytes % 32.7 % (21.2-54.2); Mean Corpuscular HGB Conc 33.2 GM/DL (32-36); Mean Corpuscular Volume 96.4 FL (87-102); Mean Platelet Volume 9.3 FL (9.6-12.0); Monocytes % 7.1 % (1.7-12.7); Neutrophils % 57.9 % (38.7-73.9); Platelet Count 126 T/CUMM (130-400); Red Blood Count 2.75 MC/CUMM (3.8-5.5); Red Cell Distribution Width 14.9 % (9.3-17.3); White Blood Count 4.2 T/CUMM (4-12)
[2019-11-02] MEDS: ALPHA LIPOIC ACID 600 MG PO SCH ×2 (09:28→21:52)
[2019-11-02 09:33] LABS: Calcium 8.5 MG/DL (8.5-10.1); Osmolality,Calculated 277.7 MOS/KG (273-304)
[2019-11-02 10:10] LABS: INR 1.1; PT Patient Result 11.5 SECS (9.8-11.9)
[2019-11-02] MEDS: CETIRIZINE 10 MG TABLET PO SCH (10:13)
[2019-11-02] MEDS: FLUTICASONE 50 MCG NASAL SPRAY 16 GM BOTTLE BOTH NARES SCH ×2 (10:13→22:23)
[2019-11-02] MEDS: TAMSULOSIN 0.4 MG CAPSULE PO SCH ×2 (10:13→21:21)
[2019-11-02] MEDS: PANTOPRAZOLE 40 MG TABLET PO SCH (10:13)
[2019-11-02] MEDS: FINASTERIDE 5 MG TABLET PO SCH (10:13)
[2019-11-02 11:32] LABS: Appearance,CSF Clear; Lymphocytes,CSF 91 %; Monocytes,CSF 9 %; Red Blood Cell,CSF < 1 C/CUMM; White Blood Cell,CSF 33 C/CUMM
[2019-11-02] MEDS: cefTRIAXone 1,000 MG in SYRINGE 1 EACH IV SCH (11:42)
[2019-11-02] MEDS: MONTELUKAST 10 MG TABLET PO SCH (21:21)
[2019-11-02] MEDS: ACYCLOVIR INJ 1,000 MG in SODIUM CHLORIDE 0.9% 250 ML IV SCH (21:21)
[2019-11-02] MEDS: SERTRALINE 25 MG TABLET PO SCH (21:21)
[2019-11-03] MEDS: ACYCLOVIR INJ 1,000 MG in SODIUM CHLORIDE 0.9% 250 ML IV SCH ×3 (03:24→20:37)
[2019-11-03] MEDS: APIXABAN 2.5 MG TABLET PO SCH (08:15)
[2019-11-03] MEDS: FLUTICASONE 50 MCG NASAL SPRAY 16 GM BOTTLE BOTH NARES SCH ×2 (08:15→20:44)
[2019-11-03] MEDS: CETIRIZINE 10 MG TABLET PO SCH (08:15)
[2019-11-03] MEDS: TAMSULOSIN 0.4 MG CAPSULE PO SCH ×2 (08:15→20:38)
[2019-11-03] MEDS: PANTOPRAZOLE 40 MG TABLET PO SCH (08:15)
[2019-11-03] MEDS: ALPHA LIPOIC ACID 600 MG PO SCH ×2 (08:16→20:44)
[2019-11-03] MEDS: FINASTERIDE 5 MG TABLET PO SCH (08:22)
[2019-11-03 09:08] LABS: Basophils % 0.3 % (0.0-0.8); Eosinophils % 1.4 % (0.00-10.9); Hematocrit 27.3 VOL% (42.0-52.0); Hemoglobin 9.1 GM/DL (14.0-18.0); Immature Granulocytes Absolute 0.03 #; Lymphocytes # 1.3 10*3/uL (1.4-4.0); Lymphocytes % 45.4 % (21.2-54.2); Mean Corpuscular HGB Conc 33.3 GM/DL (32-36); Mean Corpuscular Volume 99.6 FL (87-102); Mean Platelet Volume 8.7 FL (9.6-12.0); Monocytes % 7.8 % (1.7-12.7); Neutrophils % 44.1 % (38.7-73.9); Platelet Count 122 T/CUMM (130-400); Red Blood Count 2.74 MC/CUMM (3.8-5.5); Red Cell Distribution Width 14.7 % (9.3-17.3)
[2019-11-03 09:51] LABS: Hypochromasia Slight; Microcytosis 1+
[2019-11-03 09:52] LABS: Ovalocytes Slight; Platelet Estimate Adequate
[2019-11-03] MEDS: cefTRIAXone 1,000 MG in SYRINGE 1 EACH IV SCH (12:25)
[2019-11-03] MEDS ORDERED: ZIPRASIDONE 20 MG/1 ML VIAL IM ONE (12:51)
[2019-11-03] MEDS: SERTRALINE 25 MG TABLET PO SCH (20:37)
[2019-11-03] MEDS: MONTELUKAST 10 MG TABLET PO SCH (20:37)
[2019-11-04] MEDS: ACYCLOVIR INJ 1,000 MG in SODIUM CHLORIDE 0.9% 250 ML IV SCH ×3 (04:14→20:36)
[2019-11-04] MEDS: SODIUM CHLORIDE 0.45% 1,000 ML IV SCH (06:00)
[2019-11-04] MEDS: FLUTICASONE 50 MCG NASAL SPRAY 16 GM BOTTLE BOTH NARES SCH ×2 (08:06→20:37)
[2019-11-04] MEDS: FINASTERIDE 5 MG TABLET PO SCH (08:06)
[2019-11-04] MEDS: PANTOPRAZOLE 40 MG TABLET PO SCH (08:06)
[2019-11-04] MEDS: CETIRIZINE 10 MG TABLET PO SCH (08:06)
[2019-11-04] MEDS: TAMSULOSIN 0.4 MG CAPSULE PO SCH ×2 (08:06→20:36)
[2019-11-04] MEDS: ALPHA LIPOIC ACID 600 MG PO SCH ×2 (08:06→20:36)
[2019-11-04] MEDS: APIXABAN 2.5 MG TABLET PO SCH (08:06)
[2019-11-04] MEDS: cefTRIAXone 1,000 MG in SYRINGE 1 EACH IV SCH (12:08)
[2019-11-04] MEDS ORDERED: KETOROLAC 30 MG/1 ML VIAL IM ONE (13:09)
[2019-11-04] MEDS ORDERED: PROMETHAZINE 25 MG/1 ML VIAL IM ONE (13:10)
[2019-11-04] MEDS: AMITRIPTYLINE 25 MG TABLET PO SCH (20:36)
[2019-11-04] MEDS: MONTELUKAST 10 MG TABLET PO SCH (20:37)
[2019-11-05] MEDS: ACYCLOVIR INJ 1,000 MG in SODIUM CHLORIDE 0.9% 250 ML IV SCH (04:40)
[2019-11-05] MEDS: APIXABAN 2.5 MG TABLET PO SCH (08:14)
[2019-11-05] MEDS: SODIUM CHLORIDE 0.45% 1,000 ML IV SCH ×2 (08:14→20:23)
[2019-11-05] MEDS: FLUTICASONE 50 MCG NASAL SPRAY 16 GM BOTTLE BOTH NARES SCH ×2 (08:14→20:18)
[2019-11-05] MEDS: ALPHA LIPOIC ACID 600 MG PO SCH ×2 (08:15→20:23)
[2019-11-05] MEDS: PANTOPRAZOLE 40 MG TABLET PO SCH (08:15)
[2019-11-05] MEDS: TAMSULOSIN 0.4 MG CAPSULE PO SCH ×2 (08:15→20:19)
[2019-11-05] MEDS: FINASTERIDE 5 MG TABLET PO SCH (08:15)
[2019-11-05] MEDS: CETIRIZINE 10 MG TABLET PO SCH (08:15)
[2019-11-05] MEDS: cefTRIAXone 1,000 MG in SYRINGE 1 EACH IV SCH (11:33)
[2019-11-05] MEDS: AMITRIPTYLINE 25 MG TABLET PO SCH (20:19)
[2019-11-05] MEDS: MONTELUKAST 10 MG TABLET PO SCH (20:19)
[2019-11-06 07:13] LABS: Basophils % 0.3 % (0.0-0.8); Eosinophils % 0.8 % (0.00-10.9); Hematocrit 27.5 VOL% (42.0-52.0); Hemoglobin 9.3 GM/DL (14.0-18.0); Immature Granulocytes % 1.1 %; Immature Granulocytes Absolute 0.04 #; Lymphocytes % 53.4 % (21.2-54.2); Mean Corpuscular HGB Conc 33.8 GM/DL (32-36); Mean Corpuscular Volume 96.8 FL (87-102); Mean Platelet Volume 8.7 FL (9.6-12.0); Monocytes % 6.8 % (1.7-12.7); Neutrophils % 37.6 % (38.7-73.9); Platelet Count 152 T/CUMM (130-400); Red Blood Count 2.84 MC/CUMM (3.8-5.5); Red Cell Distribution Width 14.2 % (9.3-17.3); White Blood Count 3.8 T/CUMM (4-12)
[2019-11-06 07:28] LABS: Calcium 8.7 MG/DL (8.5-10.1); Osmolality,Calculated 280.4 MOS/KG (273-304)
[2019-11-06 08:02] LABS: Anisocytosis 1+; Atypical Lymphocytes Few; Band Neutrophils 5 % (0-10); Eosinophils 2 % (0-10); Lymphocytes 51 % (20-55); Nucleated Red Blood Cells 1 (0-5); Platelet Estimate Normal; Segmented Neutrophils 37 % (50-85); Total Cells Counted 100
[2019-11-06 08:03] LABS: Macrocytosis Slight
[2019-11-06 08:09] VITALS: BP 161/55
[2019-11-06] MEDS: CETIRIZINE 10 MG TABLET PO SCH (08:09)
[2019-11-06] MEDS: PANTOPRAZOLE 40 MG TABLET PO SCH (08:10)
[2019-11-06] MEDS: APIXABAN 2.5 MG TABLET PO SCH (08:10)
[2019-11-06] MEDS: FINASTERIDE 5 MG TABLET PO SCH (08:10)
[2019-11-06] MEDS: TAMSULOSIN 0.4 MG CAPSULE PO SCH (08:10)
[2019-11-06] MEDS: ALPHA LIPOIC ACID 600 MG PO SCH (08:20)
[2019-11-06] MEDS ORDERED: CYANOCOBALAMIN 1000 MCG/1 ML VIAL IM ONE (08:58)
[2019-11-06] MEDS: FLUTICASONE 50 MCG NASAL SPRAY 16 GM BOTTLE BOTH NARES SCH (10:53)
[2019-11-06 18:11] LABS: West Nile Virus Ab, IgG, CSF Positive (Negative); West Nile Virus Ab, IgM, CSF Negative (Negative)
== END 2019-11-06 12:30 | disposition home or self-care (01) | DRG 167 ==
LOC: EDBD → EDUNIT# → N.ED 09:29 → N.EDINP 11:00 → N.2E 12:36 → N.3E 10-31 10:56
PROVIDERS: ADMIT Family Medicine; ATTEND Family Medicine
PROC: BRONCHB (2019-11-02 08:35)

== ENCOUNTER 2020-07-30 13:15 | Inpatient (IN) ==
[2020-07-30] MEDS ORDERED: SODIUM CHLORIDE 0.9% 1,000 ML IV STA ×2 (13:39→16:09)
[2020-07-30] MEDS ORDERED: ONDANSETRON 4 MG/2 ML VIAL IV STA ×2 (13:52→16:09)
[2020-07-30 13:55] LABS: Basophils % 0.1 % (0.0-0.8); Eosinophils % 0.1 % (0.00-10.9); Hematocrit 31.6 VOL% (42.0-52.0); Hemoglobin 10.4 GM/DL (14.0-18.0); Immature Granulocytes % 1.2 %; Immature Granulocytes Absolute 0.09 #; Lymphocytes # 0.9 10*3/uL (1.4-4.0); Mean Corpuscular HGB Conc 32.9 GM/DL (32-36); Mean Corpuscular Volume 99.4 FL (87-102); Mean Platelet Volume 8.7 FL (9.6-12.0); Monocytes % 11.3 % (1.7-12.7); Neutrophils % 75.3 % (38.7-73.9); Red Blood Count 3.18 MC/CUMM (3.8-5.5); Red Cell Distribution Width 15.7 % (9.3-17.3); White Blood Count 7.3 T/CUMM (4-12)
[2020-07-30 14:02] LABS: Platelet Count 23 T/CUMM (130-400)
[2020-07-30 14:23] LABS: Albumin 3.2 G/DL (3.4-5.0); Bilirubin,Total 1.4 MG/DL (0.2-1.0); Calcium 7.7 MG/DL (8.5-10.1); Osmolality,Calculated 282.5 MOS/KG (273-304); Potassium 4.1 MMOL/L (3.5-5.1); Total Protein 5.6 G/DL (6.4-8.3)
[2020-07-30] MEDS ORDERED: HYDROmorphone 2 MG/1 ML VIAL ONE (15:56)
[2020-07-30] MEDS ORDERED: HYDROmorphone 2 MG/1 ML VIAL IV STA (16:09)
[2020-07-30] MEDS ORDERED: ONDANSETRON ODT 4 MG TABLET PO PRN (16:54)
[2020-07-30] MEDS ORDERED: ONDANSETRON 4 MG/2 ML VIAL IV PRN (16:54)
[2020-07-30] MEDS ORDERED: cefTRIAXone 1,000 MG VIAL ONE (17:24)
[2020-07-30] MEDS: cefTRIAXone 2,000 MG in SYRINGE 1 EACH IV SCH (17:45)
[2020-07-30] MEDS: SODIUM CHLORIDE 0.9% 1,000 ML IV SCH (18:30)
[2020-07-30] MEDS ORDERED: FLUTICASONE 50 MCG NASAL SPRAY 16 GM BOTTLE BOTH NARES PRN (21:00)
[2020-07-30] MEDS: ACYCLOVIR 200 MG CAPSULE PO SCH (21:54)
[2020-07-30] MEDS: DOCUSATE SODIUM 100 MG CAPSULE PO SCH (21:54)
[2020-07-30] MEDS: PANTOPRAZOLE 40 MG TABLET PO SCH (21:54)
[2020-07-30] MEDS: TAMSULOSIN 0.4 MG CAPSULE PO SCH (21:54)
[2020-07-30] MEDS: VANCOMYCIN INJ 1,750 MG in SODIUM CHLORIDE 0.9% 500 ML IV SCH (21:55)
[2020-07-30] MEDS: methylPREDNISolone SOD SUC 125 MG/2 ML VIAL IV SCH (22:00)
[2020-07-30] MEDS ORDERED: diphenhydrAMINE 50 MG/1 ML VIAL IV PRN (22:30)
[2020-07-30 23:40] LABS: Bilirubin,Urine Negative (Negative); Blood, Urine Negative (Negative); Glucose,Urine (UA) Negative (Negative); Ketones,Urine 5 mg/dL (Negative); Mucus,Urine Occasional /LPF (Occasional); Nitrite,Urine Negative (Negative); Protein,Urine 30 MG/DL; RBC,Urine 1 /HPF (0-4); Urine Appearance CLEAR (Clear); Urine Color Amber (Yellow); Urine Specific Gravity 1.023 (1.001-1.035); Urine Urobilinogen < 2.0 EU/DL (0.2-1.0); WBC,Urine 1 /HPF (0-6)
[2020-07-31] MEDS: SODIUM CHLORIDE 0.9% 1,000 ML IV SCH ×2 (03:17→23:52)
[2020-07-31] MEDS: ACETAMINOPHEN 325 MG TABLET PO PRN (03:26)
[2020-07-31 04:06] LABS: Basophils % 0.3 % (0.0-0.8); Hematocrit 30.8 VOL% (42.0-52.0); Hemoglobin 10.1 GM/DL (14.0-18.0); Immature Granulocytes % 0.6 %; Immature Granulocytes Absolute 0.04 #; Lymphocytes # 0.8 10*3/uL (1.4-4.0); Lymphocytes % 11.6 % (21.2-54.2); Mean Corpuscular HGB Conc 32.8 GM/DL (32-36); Mean Corpuscular Volume 99.4 FL (87-102); Mean Platelet Volume 9.6 FL (9.6-12.0); Monocytes % 3.4 % (1.7-12.7); Neutrophils % 84.1 % (38.7-73.9); Red Cell Distribution Width 15.9 % (9.3-17.3); White Blood Count 6.5 T/CUMM (4-12)
[2020-07-31 04:16] LABS: Platelet Count 34 T/CUMM (130-400)
[2020-07-31 04:24] LABS: Band Neutrophils 9 % (0-10); Lymphocytes 17 % (20-55); Platelet Estimate Decreased; Segmented Neutrophils 71 % (50-85); Total Cells Counted 100
[2020-07-31 04:32] LABS: Calcium 7.8 MG/DL (8.5-10.1); Osmolality,Calculated 283.7 MOS/KG (273-304)
[2020-07-31] MEDS: methylPREDNISolone SOD SUC 125 MG/2 ML VIAL IV SCH ×4 (04:34→23:42)
[2020-07-31] MEDS ORDERED: PANTOPRAZOLE 40 MG TABLET PO SCH (09:00)
[2020-07-31] MEDS: TAMSULOSIN 0.4 MG CAPSULE PO SCH ×2 (09:02→23:41)
[2020-07-31] MEDS: DOCUSATE SODIUM 100 MG CAPSULE PO SCH ×2 (09:02→23:40)
[2020-07-31] MEDS: allopurinoL 100 MG TABLET PO SCH (12:41)
[2020-07-31] MEDS: FLUDROCORTISONE 0.1 MG TABLET PO SCH (12:41)
[2020-07-31] MEDS: VANCOMYCIN INJ 1,750 MG in SODIUM CHLORIDE 0.9% 500 ML IV SCH (16:46)
[2020-07-31] MEDS: ACYCLOVIR 200 MG CAPSULE PO SCH (23:39)
[2020-07-31] MEDS: cefTRIAXone 2,000 MG in SYRINGE 1 EACH IV SCH (23:39)
[2020-07-31] MEDS: PANTOPRAZOLE 40 MG TABLET PO SCH (23:41)
[2020-08-01 03:20] LABS: Basophils % 0.2 % (0.0-0.8); Hematocrit 26.2 VOL% (42.0-52.0); Hemoglobin 8.9 GM/DL (14.0-18.0); Immature Granulocytes % 1.9 %; Immature Granulocytes Absolute 0.09 #; Lymphocytes # 0.7 10*3/uL (1.4-4.0); Lymphocytes % 14.8 % (21.2-54.2); Mean Corpuscular Volume 96.7 FL (87-102); Mean Platelet Volume 10.8 FL (9.6-12.0); Monocytes % 6.9 % (1.7-12.7); Neutrophils % 76.2 % (38.7-73.9); Red Blood Count 2.71 MC/CUMM (3.8-5.5); Red Cell Distribution Width 15.8 % (9.3-17.3); White Blood Count 4.8 T/CUMM (4-12)
[2020-08-01 03:41] LABS: Platelet Count 41 T/CUMM (130-400)
[2020-08-01 04:00] LABS: Hypochromasia 1+; Microcytosis 1+; Ovalocytes Slight; Platelet Estimate Decreased
[2020-08-01 04:21] LABS: Alanine Aminotransferase 23 U/L (16-61); Albumin 2.3 G/DL (3.4-5.0); Alkaline Phosphatase 36 U/L (45-117); Aspartate Amino Transferase 14 U/L (0-37); Blood Urea Nitrogen 32 MG/DL (7-18); Calcium 8.2 MG/DL (8.5-10.1); Carbon Dioxide 19 MMOL/L (21-32); Estimated Glom Filtration Rate 61 ML/MIN; Glucose 200 MG/DL (74-106); Osmolality,Calculated 293.3 MOS/KG (273-304); Sodium 141 MMOL/L (136-145); Total Protein 5.6 G/DL (6.4-8.3); Uric Acid 7.4 MG/DL (3.5-7.2)
[2020-08-01] MEDS: methylPREDNISolone SOD SUC 125 MG/2 ML VIAL IV SCH ×2 (05:47→12:20)
[2020-08-01] MEDS ORDERED: DESITIN 4OZ/NYSTATIN 15 GRAM MIXTURE PASTE TOP SCH (09:00)
[2020-08-01] MEDS: FLUDROCORTISONE 0.1 MG TABLET PO SCH (09:50)
[2020-08-01] MEDS: TAMSULOSIN 0.4 MG CAPSULE PO SCH ×2 (09:50→21:24)
[2020-08-01] MEDS: CETIRIZINE 10 MG TABLET PO PRN (09:50)
[2020-08-01] MEDS: DOCUSATE SODIUM 100 MG CAPSULE PO SCH ×2 (09:51→21:24)
[2020-08-01] MEDS: allopurinoL 100 MG TABLET PO SCH (09:51)
[2020-08-01] MEDS: VANCOMYCIN INJ 1,750 MG in SODIUM CHLORIDE 0.9% 500 ML IV SCH (11:41)
[2020-08-01] MEDS: ACYCLOVIR 200 MG CAPSULE PO SCH (21:24)
[2020-08-01] MEDS: cefTRIAXone 2,000 MG in SYRINGE 1 EACH IV SCH (21:25)
[2020-08-01] MEDS: PANTOPRAZOLE 40 MG TABLET PO SCH (21:25)
[2020-08-01] MEDS: SODIUM CHLORIDE 0.9% 1,000 ML IV SCH ×2 (22:41)
[2020-08-02] MEDS: VANCOMYCIN INJ 1,750 MG in SODIUM CHLORIDE 0.9% 500 ML IV SCH ×3 (00:30→23:30)
[2020-08-02 05:54] LABS: Hematocrit 26.3 VOL% (42.0-52.0); Hemoglobin 8.8 GM/DL (14.0-18.0); Immature Granulocytes % 0.9 %; Immature Granulocytes Absolute 0.04 #; Lymphocytes # 1.3 10*3/uL (1.4-4.0); Lymphocytes % 27.1 % (21.2-54.2); Mean Corpuscular HGB Conc 33.5 GM/DL (32-36); Mean Corpuscular Volume 97.4 FL (87-102); Mean Platelet Volume 10.5 FL (9.6-12.0); Monocytes % 4.7 % (1.7-12.7); Neutrophils % 67.3 % (38.7-73.9); Platelet Count 54 T/CUMM (130-400); Red Cell Distribution Width 15.9 % (9.3-17.3); White Blood Count 4.7 T/CUMM (4-12)
[2020-08-02 06:13] LABS: Albumin 2.4 G/DL (3.4-5.0); Bilirubin,Total 1.2 MG/DL (0.2-1.0); Osmolality,Calculated 297.8 MOS/KG (273-304); Potassium 4.4 MMOL/L (3.5-5.1)
[2020-08-02 06:39] LABS: Platelet Estimate Decreased
[2020-08-02 06:40] LABS: Anisocytosis 1+; Macrocytosis Slight
[2020-08-02] MEDS: allopurinoL 100 MG TABLET PO SCH (09:16)
[2020-08-02] MEDS: DOCUSATE SODIUM 100 MG CAPSULE PO SCH ×2 (09:16→20:09)
[2020-08-02] MEDS: TAMSULOSIN 0.4 MG CAPSULE PO SCH ×2 (09:16→20:09)
[2020-08-02] MEDS: FLUDROCORTISONE 0.1 MG TABLET PO SCH (09:16)
[2020-08-02] MEDS: CETIRIZINE 10 MG TABLET PO PRN (09:16)
[2020-08-02] MEDS ORDERED: methylPREDNISolone SOD SUC 40 MG/1 ML VIAL IV ONE (11:00)
[2020-08-02] MEDS: ACYCLOVIR 200 MG CAPSULE PO SCH (20:09)
[2020-08-02] MEDS: PANTOPRAZOLE 40 MG TABLET PO SCH (20:09)
[2020-08-02] MEDS: cefTRIAXone 2,000 MG in SYRINGE 1 EACH IV SCH (20:09)
[2020-08-02] MEDS: SODIUM CHLORIDE 0.9% 1,000 ML IV SCH ×2 (20:17→20:18)
[2020-08-03 07:26] LABS: Basophils % 0.4 % (0.0-0.8); Hemoglobin 9.5 GM/DL (14.0-18.0); Immature Granulocytes % 1.8 %; Lymphocytes # 1.8 10*3/uL (1.4-4.0); Mean Corpuscular HGB Conc 33.9 GM/DL (32-36); Mean Corpuscular Volume 96.9 FL (87-102); Mean Platelet Volume 10.1 FL (9.6-12.0); Monocytes % 4.7 % (1.7-12.7); NRBC # 0.02 10*3/uL; Neutrophils % 60.1 % (38.7-73.9); Platelet Count 92 T/CUMM (130-400); Red Blood Count 2.89 MC/CUMM (3.8-5.5); Red Cell Distribution Width 15.9 % (9.3-17.3); White Blood Count 5.5 T/CUMM (4-12)
[2020-08-03 08:42] LABS: Albumin 2.6 G/DL (3.4-5.0); Potassium 4.1 MMOL/L (3.5-5.1); Total Protein 6.1 G/DL (6.4-8.3)
[2020-08-03] MEDS: allopurinoL 100 MG TABLET PO SCH (08:50)
[2020-08-03] MEDS: FLUDROCORTISONE 0.1 MG TABLET PO SCH (08:50)
[2020-08-03] MEDS: DOCUSATE SODIUM 100 MG CAPSULE PO SCH ×2 (08:50→20:53)
[2020-08-03] MEDS: TAMSULOSIN 0.4 MG CAPSULE PO SCH ×2 (08:51→20:53)
[2020-08-03] MEDS: VANCOMYCIN INJ 1,750 MG in SODIUM CHLORIDE 0.9% 500 ML IV SCH (12:28)
[2020-08-03] MEDS ORDERED: hydrALAZINE 20 MG/1 ML VIAL IV PRN (17:13)
[2020-08-03] MEDS: cefTRIAXone 2,000 MG in SYRINGE 1 EACH IV SCH (20:52)
[2020-08-03] MEDS: ACYCLOVIR 200 MG CAPSULE PO SCH (20:53)
[2020-08-03] MEDS: PANTOPRAZOLE 40 MG TABLET PO SCH (20:53)
[2020-08-04] MEDS: VANCOMYCIN INJ 1,750 MG in SODIUM CHLORIDE 0.9% 500 ML IV SCH ×2 (01:41→14:47)
[2020-08-04] MEDS: ACETAMINOPHEN 325 MG TABLET PO PRN (04:15)
[2020-08-04 06:07] LABS: Eosinophils % 0.5 % (0.00-10.9); Hematocrit 26.2 VOL% (42.0-52.0); Immature Granulocytes % 1.6 %; Immature Granulocytes Absolute 0.07 #; Lymphocytes # 1.5 10*3/uL (1.4-4.0); Lymphocytes % 34.4 % (21.2-54.2); Mean Corpuscular HGB Conc 34.4 GM/DL (32-36); Mean Platelet Volume 9.7 FL (9.6-12.0); Monocytes % 9.6 % (1.7-12.7); NRBC # 0.03 10*3/uL; Neutrophils % 53.9 % (38.7-73.9); Platelet Count 98 T/CUMM (130-400); Red Cell Distribution Width 15.9 % (9.3-17.3); White Blood Count 4.3 T/CUMM (4-12)
[2020-08-04 06:30] LABS: Calcium 7.6 MG/DL (8.5-10.1); Osmolality,Calculated 290.8 MOS/KG (273-304); Potassium 3.6 MMOL/L (3.5-5.1)
[2020-08-04] MEDS: TAMSULOSIN 0.4 MG CAPSULE PO SCH ×2 (08:13→20:46)
[2020-08-04] MEDS: DOCUSATE SODIUM 100 MG CAPSULE PO SCH ×2 (08:13→20:46)
[2020-08-04] MEDS: allopurinoL 100 MG TABLET PO SCH (08:14)
[2020-08-04] MEDS: FLUDROCORTISONE 0.1 MG TABLET PO SCH (08:14)
[2020-08-04] MEDS: cefTRIAXone 2,000 MG in SYRINGE 1 EACH IV SCH (20:45)
[2020-08-04] MEDS: PANTOPRAZOLE 40 MG TABLET PO SCH (20:46)
[2020-08-04] MEDS: ACYCLOVIR 200 MG CAPSULE PO SCH (20:46)
[2020-08-05 09:17] LABS: Calcium 7.8 MG/DL (8.5-10.1); Osmolality,Calculated 283.3 MOS/KG (273-304); Potassium 3.6 MMOL/L (3.5-5.1)
[2020-08-05] MEDS: VANCOMYCIN INJ 1,750 MG in SODIUM CHLORIDE 0.9% 500 ML IV SCH (09:29)
[2020-08-05] MEDS: DOCUSATE SODIUM 100 MG CAPSULE PO SCH (09:30)
[2020-08-05] MEDS: TAMSULOSIN 0.4 MG CAPSULE PO SCH (09:30)
[2020-08-05] MEDS: FLUDROCORTISONE 0.1 MG TABLET PO SCH (09:31)
[2020-08-05] MEDS: allopurinoL 100 MG TABLET PO SCH (09:31)
[2020-08-05 09:39] LABS: Basophils % 0.2 % (0.0-0.8); Eosinophils # 0.1 10*3/uL (0.0-0.87); Eosinophils % 1.4 % (0.00-10.9); Hematocrit 30.2 VOL% (42.0-52.0); Hemoglobin 10.4 GM/DL (14.0-18.0); Immature Granulocytes % 2.8 %; Immature Granulocytes Absolute 0.16 #; Lymphocytes # 1.8 10*3/uL (1.4-4.0); Mean Corpuscular HGB Conc 34.4 GM/DL (32-36); Mean Corpuscular Volume 95.9 FL (87-102); Mean Platelet Volume 8.8 FL (9.6-12.0); Neutrophils % 55.6 % (38.7-73.9); Platelet Count 110 T/CUMM (130-400); Red Blood Count 3.15 MC/CUMM (3.8-5.5); Red Cell Distribution Width 15.7 % (9.3-17.3); White Blood Count 5.6 T/CUMM (4-12)
[2020-08-05 16:13] VITALS: BP 181/79
== END 2020-08-05 18:30 | disposition home health service (06) | DRG 872 ==
LOC: EDBD → EDUNIT# → N.EDINP 13:15 → N.ED 13:15 → N.3E 07-31 08:31
PROVIDERS: ADMIT Family Medicine; ATTEND Family Medicine

== ENCOUNTER 2021-12-05 10:09 | Inpatient (IN) ==
[2021-12-05] MEDS ORDERED: SODIUM CHLORIDE 0.9% 1,000 ML IV STA (10:59)
[2021-12-05 11:06] LABS: Basophils % 0.3 % (0.0-0.8); Hematocrit 29.5 VOL% (42.0-52.0); Immature Granulocytes % 1.9 %; Immature Granulocytes Absolute 0.18 #; Lymphocytes # 1.6 10*3/uL (1.4-4.0); Lymphocytes % 17.5 % (21.2-54.2); Mean Corpuscular HGB Conc 33.9 GM/DL (32-36); Mean Platelet Volume 10.7 FL (9.6-12.0); Monocytes # 1.4 10*3/uL (0.11-0.8); Monocytes % 15.3 % (1.7-12.7); Platelet Count 106 T/CUMM (130-400); Red Blood Count 3.01 MC/CUMM (3.8-5.5); Red Cell Distribution Width 16.3 % (9.3-17.3); White Blood Count 9.2 T/CUMM (4-12)
[2021-12-05 11:25] LABS: Alanine Aminotransferase 33 U/L (16-61); Albumin 3.4 G/DL (3.4-5.0); Alkaline Phosphatase 104 U/L (45-117); Amylase 13 U/L (25-115); Aspartate Amino Transferase 30 U/L (0-37); Blood Urea Nitrogen 25 MG/DL (7-18); Calcium 9.2 MG/DL (8.5-10.1); Carbon Dioxide 25 MMOL/L (21-32); Chloride 106 MMOL/L (98-107); Glucose 138 MG/DL (74-106); Osmolality,Calculated 280.7 MOS/KG (273-304); Potassium 3.5 MMOL/L (3.5-5.1); Sodium 138 MMOL/L (136-145); Total Protein 6.7 G/DL (6.4-8.2)
[2021-12-05 11:53] LABS: Hyaline Casts,Urine 3 /LPF (0-3); Mucus,Urine Occasional /LPF (Occasional); RBC,Urine 1 /HPF (0-4); Squamous Epithelial Cell,Urine Occasional /HPF (0-10)
[2021-12-05 11:55] LABS: Bilirubin,Urine Small mg/dL (Negative); Blood, Urine Negative (Negative); Glucose,Urine (UA) Negative (Negative); Ketones,Urine Trace mg/dL (Negative); Nitrite,Urine Positive (Negative); Protein,Urine 30 mg/dL (Negative); Urine Appearance Clear (Clear); Urine Color Orange (Yellow); Urine Specific Gravity 1.015 (1.001-1.035); Urine pH 5.5 (4.5-8.0)
[2021-12-05] MEDS ORDERED: PIPERACILLIN/TAZOBACTAM 3,375 MG in SODIUM CHLORIDE 0.9% 100 ML IV STA (12:20)
[2021-12-05] MEDS ORDERED: ACETAMINOPHEN 325 MG TABLET PO ONE (13:46)
[2021-12-05] MEDS ORDERED: ACETAMINOPHEN 325 MG TABLET PO PRN (14:12)
[2021-12-05] MEDS ORDERED: ONDANSETRON 4 MG/2 ML VIAL IV PRN (14:12)
[2021-12-05] MEDS: SODIUM CHLORIDE 0.9% 1,000 ML IV SCH ×2 (14:29→22:35)
[2021-12-05] MEDS: MEROPENEM 500 MG in SODIUM CHLORIDE 0.9% 100 ML IV SCH ×2 (14:30→20:01)
[2021-12-05] MEDS ORDERED: CETIRIZINE 10 MG TABLET PO PRN (17:02)
[2021-12-05] MEDS ORDERED: cloNIDine 0.1 MG TABLET PO ONE (17:16)
[2021-12-05] MEDS: ALBUTEROL/IPRATROPIUM 3 ML NEB RESP TX SCH (19:35)
[2021-12-05] MEDS: POTASSIUM CHLORIDE 20 MEQ TABLET PO SCH (20:06)
[2021-12-05] MEDS: hydrALAZINE 25 MG TABLET PO SCH ×2 (20:06→22:33)
[2021-12-05] MEDS: TAMSULOSIN 0.4 MG CAPSULE PO SCH (20:06)
[2021-12-05] MEDS: DOCUSATE SODIUM 100 MG CAPSULE PO SCH (20:06)
[2021-12-05] MEDS: cloNIDine 0.1 MG TABLET PO SCH (20:07)
[2021-12-05] MEDS: MONTELUKAST 10 MG TABLET PO SCH (20:07)
[2021-12-05] MEDS: ESCITALOPRAM 10 MG TABLET PO SCH (20:56)
[2021-12-05] MEDS: ACYCLOVIR 200 MG CAPSULE PO SCH (20:56)
[2021-12-06] MEDS: ALBUTEROL/IPRATROPIUM 3 ML NEB RESP TX SCH ×4 (00:50→19:14)
[2021-12-06] MEDS: MEROPENEM 500 MG in SODIUM CHLORIDE 0.9% 100 ML IV SCH ×4 (02:29→20:33)
[2021-12-06 04:40] LABS: Basophils % 0.3 % (0.0-0.8); Hematocrit 23.4 VOL% (42.0-52.0); Hemoglobin 7.8 GM/DL (14.0-18.0); Immature Granulocytes % 2.4 %; Immature Granulocytes Absolute 0.15 #; Lymphocytes # 1.1 10*3/uL (1.4-4.0); Lymphocytes % 17.2 % (21.2-54.2); Mean Corpuscular HGB Conc 33.3 GM/DL (32-36); Mean Corpuscular Volume 98.3 FL (87-102); Mean Platelet Volume 9.9 FL (9.6-12.0); Monocytes # 1.1 10*3/uL (0.11-0.8); Neutrophils % 63.1 % (38.7-73.9); Platelet Count 76 T/CUMM (130-400); Red Blood Count 2.38 MC/CUMM (3.8-5.5); Red Cell Distribution Width 16.2 % (9.3-17.3); White Blood Count 6.3 T/CUMM (4-12)
[2021-12-06 04:58] LABS: Albumin 2.8 G/DL (3.4-5.0); Bilirubin,Total 1.9 MG/DL (0.20-1.00); Calcium 8.5 MG/DL (8.5-10.1); Osmolality,Calculated 283.3 MOS/KG (273-304); Potassium 3.7 MMOL/L (3.5-5.1); Total Protein 5.4 G/DL (6.4-8.2)
[2021-12-06 05:10] LABS: Lymphocytes 22 % (20-55); Platelet Estimate Decreased; Total Cells Counted 100
[2021-12-06] MEDS: BUDESONIDE 0.25 MG/2 ML NEB RESP TX SCH (07:10)
[2021-12-06] MEDS: SODIUM CHLORIDE 0.9% 1,000 ML IV SCH ×2 (08:10→21:04)
[2021-12-06] MEDS: cloNIDine 0.1 MG TABLET PO SCH ×2 (08:12→20:35)
[2021-12-06] MEDS: POTASSIUM CHLORIDE 20 MEQ TABLET PO SCH ×2 (08:13→20:36)
[2021-12-06] MEDS: LEVOTHYROXINE 50 MCG TABLET PO SCH (08:13)
[2021-12-06] MEDS: hydrALAZINE 25 MG TABLET PO SCH ×2 (08:13→20:35)
[2021-12-06] MEDS: DOCUSATE SODIUM 100 MG CAPSULE PO SCH ×2 (08:13→20:35)
[2021-12-06] MEDS: TAMSULOSIN 0.4 MG CAPSULE PO SCH ×2 (08:13→20:34)
[2021-12-06] MEDS: PANTOPRAZOLE 40 MG TABLET PO SCH (08:13)
[2021-12-06] MEDS ORDERED: MAGNESIUM SULF RIDER 2 GM/50 ML PREMIX IV ONE (18:28)
[2021-12-06] MEDS: MONTELUKAST 10 MG TABLET PO SCH (20:34)
[2021-12-06] MEDS: ACYCLOVIR 200 MG CAPSULE PO SCH (20:34)
[2021-12-06] MEDS: FERROUS SULFATE 325 MG TABLET PO SCH (20:34)
[2021-12-06] MEDS: ESCITALOPRAM 10 MG TABLET PO SCH (21:06)
[2021-12-07] MEDS: ALBUTEROL/IPRATROPIUM 3 ML NEB RESP TX SCH ×4 (00:07→19:48)
[2021-12-07] MEDS: SODIUM CHLORIDE 0.9% 1,000 ML IV SCH ×2 (00:13→05:41)
[2021-12-07] MEDS: MEROPENEM 500 MG in SODIUM CHLORIDE 0.9% 100 ML IV SCH ×4 (02:34→20:54)
[2021-12-07 04:48] LABS: Basophils % 0.5 % (0.0-0.8); Hematocrit 23.3 VOL% (42.0-52.0); Hemoglobin 7.8 GM/DL (14.0-18.0); Immature Granulocytes % 3.4 %; Immature Granulocytes Absolute 0.14 #; Lymphocytes # 0.7 10*3/uL (1.4-4.0); Lymphocytes % 16.6 % (21.2-54.2); Mean Corpuscular HGB Conc 33.5 GM/DL (32-36); Mean Corpuscular Volume 98.7 FL (87-102); Monocytes # 0.6 10*3/uL (0.11-0.8); Monocytes % 13.7 % (1.7-12.7); Neutrophils % 65.8 % (38.7-73.9); Platelet Count 71 T/CUMM (130-400); Red Blood Count 2.36 MC/CUMM (3.8-5.5); Red Cell Distribution Width 16.2 % (9.3-17.3); White Blood Count 4.2 T/CUMM (4-12)
[2021-12-07 05:14] LABS: Calcium 8.3 MG/DL (8.5-10.1); Osmolality,Calculated 282.3 MOS/KG (273-304); Potassium 3.5 MMOL/L (3.5-5.1)
[2021-12-07 05:32] LABS: Anisocytosis 1+; Platelet Estimate Decreased
[2021-12-07] MEDS: BUDESONIDE 0.25 MG/2 ML NEB RESP TX SCH (07:20)
[2021-12-07] MEDS: FERROUS SULFATE 325 MG TABLET PO SCH ×2 (08:27→20:56)
[2021-12-07] MEDS: LEVOTHYROXINE 50 MCG TABLET PO SCH (08:27)
[2021-12-07] MEDS: TAMSULOSIN 0.4 MG CAPSULE PO SCH ×2 (08:27→20:56)
[2021-12-07] MEDS: POTASSIUM CHLORIDE 20 MEQ TABLET PO SCH ×2 (08:27→20:56)
[2021-12-07] MEDS: hydrALAZINE 25 MG TABLET PO SCH ×2 (08:27→20:56)
[2021-12-07] MEDS: DOCUSATE SODIUM 100 MG CAPSULE PO SCH ×2 (08:28→20:55)
[2021-12-07] MEDS: PANTOPRAZOLE 40 MG TABLET PO SCH (08:28)
[2021-12-07] MEDS: cloNIDine 0.1 MG TABLET PO SCH ×2 (08:28→20:55)
[2021-12-07] MEDS: VANCOMYCIN INJ 1,750 MG in SODIUM CHLORIDE 0.9% 500 ML IV SCH (10:40)
[2021-12-07] MEDS: ESCITALOPRAM 10 MG TABLET PO SCH (20:56)
[2021-12-07] MEDS: ACYCLOVIR 200 MG CAPSULE PO SCH (20:56)
[2021-12-07] MEDS: MONTELUKAST 10 MG TABLET PO SCH (20:56)
[2021-12-08] MEDS: ALBUTEROL/IPRATROPIUM 3 ML NEB RESP TX SCH ×4 (00:24→19:47)
[2021-12-08] MEDS: MEROPENEM 500 MG in SODIUM CHLORIDE 0.9% 100 ML IV SCH ×2 (02:21→11:22)
[2021-12-08] MEDS: SODIUM CHLORIDE 0.9% 1,000 ML IV SCH (02:22)
[2021-12-08 05:03] LABS: Basophils % 0.8 % (0.0-0.8); Eosinophils % 0.3 % (0.00-10.9); Hematocrit 22.8 VOL% (42.0-52.0); Hemoglobin 7.6 GM/DL (14.0-18.0); Immature Granulocytes % 4.9 %; Immature Granulocytes Absolute 0.18 #; Lymphocytes # 0.7 10*3/uL (1.4-4.0); Lymphocytes % 18.6 % (21.2-54.2); Mean Corpuscular HGB Conc 33.3 GM/DL (32-36); Mean Corpuscular Volume 101.3 FL (87-102); Mean Platelet Volume 10.4 FL (9.6-12.0); Monocytes # 0.5 10*3/uL (0.11-0.8); Monocytes % 12.1 % (1.7-12.7); Neutrophils % 63.3 % (38.7-73.9); Platelet Count 69 T/CUMM (130-400); Red Blood Count 2.25 MC/CUMM (3.8-5.5); Red Cell Distribution Width 16.4 % (9.3-17.3); White Blood Count 3.7 T/CUMM (4-12)
[2021-12-08] MEDS: VANCOMYCIN INJ 1,750 MG in SODIUM CHLORIDE 0.9% 500 ML IV SCH ×2 (05:10→22:14)
[2021-12-08 05:29] LABS: Platelet Estimate Decreased
[2021-12-08 05:31] LABS: Albumin 2.5 G/DL (3.4-5.0); Bilirubin,Total 1.3 MG/DL (0.20-1.00); Calcium 8.2 MG/DL (8.5-10.1); Osmolality,Calculated 281.3 MOS/KG (273-304); Potassium 3.6 MMOL/L (3.5-5.1); Total Protein 5.1 G/DL (6.4-8.2)
[2021-12-08 06:17] LABS: Immunoglobulin A < 31 MG/DL (70-400); Immunoglobulin G 228 MG/DL (700-1600); Immunoglobulin M < 21 MG/DL (40-230)
[2021-12-08] MEDS: BUDESONIDE 0.25 MG/2 ML NEB RESP TX SCH (07:39)
[2021-12-08] MEDS: hydrALAZINE 25 MG TABLET PO SCH ×2 (10:10→22:14)
[2021-12-08] MEDS: DOCUSATE SODIUM 100 MG CAPSULE PO SCH (10:10)
[2021-12-08] MEDS: cloNIDine 0.1 MG TABLET PO SCH ×2 (10:10→22:13)
[2021-12-08] MEDS: PANTOPRAZOLE 40 MG TABLET PO SCH (10:10)
[2021-12-08] MEDS: TAMSULOSIN 0.4 MG CAPSULE PO SCH ×2 (10:10→22:14)
[2021-12-08] MEDS: POTASSIUM CHLORIDE 20 MEQ TABLET PO SCH ×2 (10:10→22:13)
[2021-12-08] MEDS: LEVOTHYROXINE 50 MCG TABLET PO SCH (10:10)
[2021-12-08] MEDS: FERROUS SULFATE 325 MG TABLET PO SCH (10:10)
[2021-12-08] MEDS ORDERED: BISACODYL 5 MG TABLET PO ONE (16:00)
[2021-12-08] MEDS: cefTRIAXone 2,000 MG in SODIUM CHLORIDE 0.9% 100 ML IV SCH (16:15)
[2021-12-08] MEDS ORDERED: IMMUNE GLOBULIN 10% 20 GM, IMMUNE GLOBULIN 10% 10 GM in PREMIX 1 EACH IV ONE (17:00)
[2021-12-08] MEDS ORDERED: POLYETHYLENE GLYCOL POWDER 255 GM BOTTLE PO ONE (18:00)
[2021-12-08] MEDS: ESCITALOPRAM 10 MG TABLET PO SCH (22:13)
[2021-12-08] MEDS: ACYCLOVIR 200 MG CAPSULE PO SCH (22:13)
[2021-12-08] MEDS: MONTELUKAST 10 MG TABLET PO SCH (22:14)
[2021-12-09] MEDS: ALBUTEROL/IPRATROPIUM 3 ML NEB RESP TX SCH ×4 (01:50→19:48)
[2021-12-09 04:52] LABS: Basophils % 0.3 % (0.0-0.8); Eosinophils % 0.3 % (0.00-10.9); Hematocrit 21.8 VOL% (42.0-52.0); Hemoglobin 7.1 GM/DL (14.0-18.0); Immature Granulocytes % 5.5 %; Immature Granulocytes Absolute 0.17 #; Lymphocytes # 0.6 10*3/uL (1.4-4.0); Lymphocytes % 18.8 % (21.2-54.2); Mean Corpuscular HGB Conc 32.6 GM/DL (32-36); Mean Corpuscular Volume 100.5 FL (87-102); Mean Platelet Volume 10.5 FL (9.6-12.0); Monocytes # 0.5 10*3/uL (0.11-0.8); Monocytes % 15.3 % (1.7-12.7); Neutrophils % 59.8 % (38.7-73.9); Platelet Count 66 T/CUMM (130-400); Red Blood Count 2.17 MC/CUMM (3.8-5.5); Red Cell Distribution Width 16.4 % (9.3-17.3); White Blood Count 3.1 T/CUMM (4-12)
[2021-12-09 04:55] LABS: INR 1.1; PT Patient Result 12.3 SECS (10.5-12.0)
[2021-12-09] MEDS ORDERED: POLYETHYLENE GLYCOL POWDER 255 GM BOTTLE PO ONE (05:00)
[2021-12-09 05:15] LABS: Lymphocytes 22 % (20-55); Platelet Estimate Decreased; Total Cells Counted 100
[2021-12-09] MEDS: BUDESONIDE 0.25 MG/2 ML NEB RESP TX SCH (07:48)
[2021-12-09] MEDS ORDERED: SODIUM CHLORIDE 0.9% 1,000 ML IV PRN (10:04)
[2021-12-09] MEDS: LEVOTHYROXINE 50 MCG TABLET PO SCH (10:38)
[2021-12-09] MEDS: hydrALAZINE 25 MG TABLET PO SCH ×2 (10:38→21:15)
[2021-12-09] MEDS: cloNIDine 0.1 MG TABLET PO SCH ×2 (10:38→21:15)
[2021-12-09] MEDS: FLUTICASONE UMECLIDIN VILANTER INH SCH (10:39)
[2021-12-09] MEDS: cefTRIAXone 2,000 MG in SODIUM CHLORIDE 0.9% 100 ML IV SCH (10:40)
[2021-12-09] MEDS: LACTATED RINGERS 1,000 ML IV SCH (12:30)
[2021-12-09] MEDS ORDERED: LIDOCAINE 2% 5 ML VIAL ONE (13:49)
[2021-12-09] MEDS ORDERED: propofoL 200 MG/20 ML VIAL IV ONE (13:49)
[2021-12-09] MEDS: SODIUM CHLORIDE 0.9% 1,000 ML IV SCH ×5 (14:36→21:15)
[2021-12-09] MEDS: TAMSULOSIN 0.4 MG CAPSULE PO SCH ×2 (14:37→21:14)
[2021-12-09] MEDS: POTASSIUM CHLORIDE 20 MEQ TABLET PO SCH ×2 (14:37→21:14)
[2021-12-09] MEDS: CEFEPIME 1,000 MG in SODIUM CHLORIDE 0.9% 100 ML IV SCH ×2 (15:55→21:20)
[2021-12-09] MEDS: PANTOPRAZOLE 40 MG TABLET PO SCH (15:55)
[2021-12-09] MEDS: MONTELUKAST 10 MG TABLET PO SCH (21:14)
[2021-12-09] MEDS: ACYCLOVIR 200 MG CAPSULE PO SCH (21:14)
[2021-12-09] MEDS: ESCITALOPRAM 10 MG TABLET PO SCH (21:26)
[2021-12-10] MEDS: ALBUTEROL/IPRATROPIUM 3 ML NEB RESP TX SCH ×4 (01:13→19:33)
[2021-12-10] MEDS: SODIUM CHLORIDE 0.9% 1,000 ML IV SCH ×2 (02:33→16:26)
[2021-12-10] MEDS: CEFEPIME 1,000 MG in SODIUM CHLORIDE 0.9% 100 ML IV SCH ×4 (04:00→22:07)
[2021-12-10 05:04] LABS: Basophils % 0.7 % (0.0-0.8); Eosinophils % 0.3 % (0.00-10.9); Hematocrit 24.4 VOL% (42.0-52.0); Immature Granulocytes % 3.3 %; Lymphocytes # 0.7 10*3/uL (1.4-4.0); Lymphocytes % 22.5 % (21.2-54.2); Mean Corpuscular HGB Conc 32.8 GM/DL (32-36); Mean Platelet Volume 9.7 FL (9.6-12.0); Monocytes # 0.3 10*3/uL (0.11-0.8); Monocytes % 11.3 % (1.7-12.7); Neutrophils % 61.9 % (38.7-73.9); Platelet Count 68 T/CUMM (130-400); Red Blood Count 2.49 MC/CUMM (3.8-5.5); Red Cell Distribution Width 19.6 % (9.3-17.3)
[2021-12-10] MEDS: BUDESONIDE 0.25 MG/2 ML NEB RESP TX SCH (07:20)
[2021-12-10] MEDS: LACTATED RINGERS 1,000 ML IV SCH (08:32)
[2021-12-10] MEDS: FERROUS SULFATE 325 MG TABLET PO SCH ×2 (10:38→21:12)
[2021-12-10] MEDS: hydrALAZINE 25 MG TABLET PO SCH ×2 (10:39→21:12)
[2021-12-10] MEDS: FLUTICASONE UMECLIDIN VILANTER INH SCH (10:39)
[2021-12-10] MEDS: TAMSULOSIN 0.4 MG CAPSULE PO SCH ×2 (10:39→21:11)
[2021-12-10] MEDS: LEVOTHYROXINE 50 MCG TABLET PO SCH (10:39)
[2021-12-10] MEDS: PANTOPRAZOLE 40 MG TABLET PO SCH (10:39)
[2021-12-10] MEDS: cloNIDine 0.1 MG TABLET PO SCH ×2 (10:39→21:12)
[2021-12-10] MEDS: POTASSIUM CHLORIDE 20 MEQ TABLET PO SCH ×2 (10:39→21:11)
[2021-12-10] MEDS: BUDESONIDE 3 MG CAPSULE PO SCH (16:24)
[2021-12-10] MEDS: ACYCLOVIR 200 MG CAPSULE PO SCH (21:11)
[2021-12-10] MEDS: ESCITALOPRAM 10 MG TABLET PO SCH (21:12)
[2021-12-10] MEDS: MONTELUKAST 10 MG TABLET PO SCH (21:15)
[2021-12-11] MEDS: ALBUTEROL/IPRATROPIUM 3 ML NEB RESP TX SCH ×5 (00:45→23:32)
[2021-12-11] MEDS: CEFEPIME 1,000 MG in SODIUM CHLORIDE 0.9% 100 ML IV SCH ×4 (04:38→21:25)
[2021-12-11] MEDS: SODIUM CHLORIDE 0.9% 1,000 ML IV SCH ×5 (04:38→23:53)
[2021-12-11 05:43] LABS: Basophils % 0.4 % (0.0-0.8); Hematocrit 24.6 VOL% (42.0-52.0); Hemoglobin 8.1 GM/DL (14.0-18.0); Immature Granulocytes Absolute 0.07 #; Lymphocytes # 0.6 10*3/uL (1.4-4.0); Lymphocytes % 23.4 % (21.2-54.2); Mean Corpuscular HGB Conc 32.9 GM/DL (32-36); Mean Corpuscular Volume 97.2 FL (87-102); Mean Platelet Volume 10.4 FL (9.6-12.0); Monocytes # 0.2 10*3/uL (0.11-0.8); Monocytes % 8.1 % (1.7-12.7); Neutrophils % 65.1 % (38.7-73.9); Platelet Count 56 T/CUMM (130-400); Red Blood Count 2.53 MC/CUMM (3.8-5.5); Red Cell Distribution Width 19.5 % (9.3-17.3); White Blood Count 2.4 T/CUMM (4-12)
[2021-12-11 06:06] LABS: Platelet Estimate Decreased
[2021-12-11] MEDS: BUDESONIDE 0.25 MG/2 ML NEB RESP TX SCH (07:20)
[2021-12-11] MEDS: POTASSIUM CHLORIDE 20 MEQ TABLET PO SCH ×2 (08:22→21:22)
[2021-12-11] MEDS: hydrALAZINE 25 MG TABLET PO SCH ×2 (08:22→21:22)
[2021-12-11] MEDS: TAMSULOSIN 0.4 MG CAPSULE PO SCH ×2 (08:22→21:22)
[2021-12-11] MEDS: PANTOPRAZOLE 40 MG TABLET PO SCH (08:22)
[2021-12-11] MEDS: BUDESONIDE 3 MG CAPSULE PO SCH (08:22)
[2021-12-11] MEDS: FERROUS SULFATE 325 MG TABLET PO SCH ×2 (08:22→21:22)
[2021-12-11] MEDS: cloNIDine 0.1 MG TABLET PO SCH ×2 (08:22→21:22)
[2021-12-11] MEDS: LEVOTHYROXINE 50 MCG TABLET PO SCH (08:22)
[2021-12-11] MEDS: FLUTICASONE UMECLIDIN VILANTER INH SCH (08:23)
[2021-12-11] MEDS: LACTATED RINGERS 1,000 ML IV SCH (09:10)
[2021-12-11] MEDS: ACYCLOVIR 200 MG CAPSULE PO SCH (21:21)
[2021-12-11] MEDS: ESCITALOPRAM 10 MG TABLET PO SCH (21:22)
[2021-12-11] MEDS: MONTELUKAST 10 MG TABLET PO SCH (21:22)
[2021-12-12] MEDS: CEFEPIME 1,000 MG in SODIUM CHLORIDE 0.9% 100 ML IV SCH ×4 (04:01→22:31)
[2021-12-12 05:39] LABS: Basophils % 0.4 % (0.0-0.8); Hematocrit 24.1 VOL% (42.0-52.0); Hemoglobin 7.8 GM/DL (14.0-18.0); Immature Granulocytes Absolute 0.05 #; Lymphocytes # 0.7 10*3/uL (1.4-4.0); Lymphocytes % 28.7 % (21.2-54.2); Mean Corpuscular HGB Conc 32.4 GM/DL (32-36); Mean Corpuscular Volume 98.8 FL (87-102); Mean Platelet Volume 11.8 FL (9.6-12.0); Monocytes # 0.2 10*3/uL (0.11-0.8); Monocytes % 9.2 % (1.7-12.7); Neutrophils % 59.7 % (38.7-73.9); Platelet Count 53 T/CUMM (130-400); Red Blood Count 2.44 MC/CUMM (3.8-5.5); Red Cell Distribution Width 19.6 % (9.3-17.3); White Blood Count 2.5 T/CUMM (4-12)
[2021-12-12] MEDS: BUDESONIDE 0.25 MG/2 ML NEB RESP TX SCH (07:38)
[2021-12-12] MEDS: ALBUTEROL/IPRATROPIUM 3 ML NEB RESP TX SCH ×3 (07:38→20:03)
[2021-12-12 09:41] LABS: Albumin 2.6 G/DL (3.4-5.0); Bilirubin,Total 0.6 MG/DL (0.20-1.00); Calcium 8.4 MG/DL (8.5-10.1); Potassium 3.8 MMOL/L (3.5-5.1); Total Protein 5.4 G/DL (6.4-8.2)
[2021-12-12] MEDS: SODIUM CHLORIDE 0.9% 1,000 ML IV SCH ×2 (09:59→21:10)
[2021-12-12] MEDS: TAMSULOSIN 0.4 MG CAPSULE PO SCH ×2 (10:02→22:29)
[2021-12-12] MEDS: BUDESONIDE 3 MG CAPSULE PO SCH (10:02)
[2021-12-12] MEDS: POTASSIUM CHLORIDE 20 MEQ TABLET PO SCH ×2 (10:03→22:31)
[2021-12-12] MEDS: cloNIDine 0.1 MG TABLET PO SCH ×2 (10:03→22:29)
[2021-12-12] MEDS: PANTOPRAZOLE 40 MG TABLET PO SCH (10:03)
[2021-12-12] MEDS: FERROUS SULFATE 325 MG TABLET PO SCH ×2 (10:03→22:30)
[2021-12-12] MEDS: hydrALAZINE 25 MG TABLET PO SCH ×2 (10:05→22:31)
[2021-12-12] MEDS: LEVOTHYROXINE 50 MCG TABLET PO SCH (10:06)
[2021-12-12] MEDS: FLUTICASONE UMECLIDIN VILANTER INH SCH (10:08)
[2021-12-12] MEDS: ACYCLOVIR 200 MG CAPSULE PO SCH (22:29)
[2021-12-12] MEDS: MONTELUKAST 10 MG TABLET PO SCH (22:30)
[2021-12-12] MEDS: ESCITALOPRAM 10 MG TABLET PO SCH (22:30)
[2021-12-13] MEDS: ALBUTEROL/IPRATROPIUM 3 ML NEB RESP TX SCH ×4 (00:56→19:23)
[2021-12-13] MEDS: CEFEPIME 1,000 MG in SODIUM CHLORIDE 0.9% 100 ML IV SCH ×4 (05:29→22:41)
[2021-12-13 05:54] LABS: Basophils % 0.4 % (0.0-0.8); Eosinophils % 0.4 % (0.00-10.9); Hematocrit 23.7 VOL% (42.0-52.0); Hemoglobin 7.8 GM/DL (14.0-18.0); Immature Granulocytes % 1.2 %; Immature Granulocytes Absolute 0.03 #; Lymphocytes # 0.7 10*3/uL (1.4-4.0); Lymphocytes % 28.7 % (21.2-54.2); Mean Corpuscular HGB Conc 32.9 GM/DL (32-36); Mean Corpuscular Volume 97.1 FL (87-102); Mean Platelet Volume 9.8 FL (9.6-12.0); Monocytes # 0.3 10*3/uL (0.11-0.8); Monocytes % 11.7 % (1.7-12.7); Neutrophils % 57.6 % (38.7-73.9); Platelet Count 45 T/CUMM (130-400); Red Blood Count 2.44 MC/CUMM (3.8-5.5); Red Cell Distribution Width 19.3 % (9.3-17.3); White Blood Count 2.5 T/CUMM (4-12)
[2021-12-13 06:15] LABS: Hypochromia 1+; Platelet Estimate Decreased
[2021-12-13] MEDS: BUDESONIDE 0.25 MG/2 ML NEB RESP TX SCH (07:04)
[2021-12-13] MEDS: cloNIDine 0.1 MG TABLET PO SCH (11:15)
[2021-12-13] MEDS: SODIUM CHLORIDE 0.9% 1,000 ML IV SCH (11:16)
[2021-12-13] MEDS: LEVOTHYROXINE 50 MCG TABLET PO SCH (11:17)
[2021-12-13] MEDS: FERROUS SULFATE 325 MG TABLET PO SCH ×2 (11:18→20:25)
[2021-12-13] MEDS: BUDESONIDE 3 MG CAPSULE PO SCH (11:18)
[2021-12-13] MEDS: PANTOPRAZOLE 40 MG TABLET PO SCH (11:18)
[2021-12-13] MEDS: POTASSIUM CHLORIDE 20 MEQ TABLET PO SCH ×2 (11:18→20:25)
[2021-12-13] MEDS: TAMSULOSIN 0.4 MG CAPSULE PO SCH ×2 (11:19→20:25)
[2021-12-13] MEDS: FLUTICASONE UMECLIDIN VILANTER INH SCH (11:28)
[2021-12-13] MEDS: hydrALAZINE 25 MG TABLET PO SCH ×2 (11:56→20:25)
[2021-12-13] MEDS: ACYCLOVIR 200 MG CAPSULE PO SCH (20:25)
[2021-12-13] MEDS: ESCITALOPRAM 10 MG TABLET PO SCH (20:25)
[2021-12-13] MEDS: MONTELUKAST 10 MG TABLET PO SCH (20:25)
[2021-12-14] MEDS: ALBUTEROL/IPRATROPIUM 3 ML NEB RESP TX SCH ×2 (00:30→07:19)
[2021-12-14] MEDS: cloNIDine 0.1 MG TABLET PO SCH ×2 (04:17→09:24)
[2021-12-14] MEDS: CEFEPIME 1,000 MG in SODIUM CHLORIDE 0.9% 100 ML IV SCH ×2 (04:18→10:01)
[2021-12-14] MEDS: hydrALAZINE 25 MG TABLET PO SCH ×2 (05:10→09:23)
[2021-12-14] MEDS: BUDESONIDE 0.25 MG/2 ML NEB RESP TX SCH (07:19)
[2021-12-14] MEDS ORDERED: LOSARTAN 50 MG TABLET PO SCH (09:00)
[2021-12-14] MEDS: POTASSIUM CHLORIDE 20 MEQ TABLET PO SCH (10:08)
[2021-12-14] MEDS: FERROUS SULFATE 325 MG TABLET PO SCH (10:08)
[2021-12-14] MEDS: BUDESONIDE 3 MG CAPSULE PO SCH (10:08)
[2021-12-14] MEDS: PANTOPRAZOLE 40 MG TABLET PO SCH (10:08)
[2021-12-14] MEDS: TAMSULOSIN 0.4 MG CAPSULE PO SCH (10:09)
[2021-12-14] MEDS: LEVOTHYROXINE 50 MCG TABLET PO SCH (10:09)
[2021-12-14] MEDS: FLUTICASONE UMECLIDIN VILANTER INH SCH (10:15)
[2021-12-14 11:53] VITALS: BP 171/75
== END 2021-12-14 13:25 | disposition home health service (06) | DRG 194 ==
LOC: N.ED 10:09 → N.EDINP 13:24 → N.TELEN 14:15
PROVIDERS: ADMIT Family Medicine; ATTEND Family Medicine
PROC: COLONBX (2021-12-09 11:20)

== ENCOUNTER 2022-01-27 17:20 | Inpatient (IN) ==
[2022-01-27] MEDS ORDERED: SODIUM CHLORIDE 0.9% 500 ML IV STA (18:12)
[2022-01-27 18:59] LABS: Basophils % 0.3 % (0.0-0.8); Hematocrit 25.1 VOL% (42.0-52.0); Hemoglobin 8.4 GM/DL (14.0-18.0); Immature Granulocytes % 5.4 %; Immature Granulocytes Absolute 0.32 #; Lymphocytes # 0.7 10*3/uL (1.4-4.0); Lymphocytes % 12.2 % (21.2-54.2); Mean Corpuscular HGB Conc 33.5 GM/DL (32-36); Mean Corpuscular Volume 99.2 FL (87-102); Mean Platelet Volume 10.9 FL (9.6-12.0); Monocytes # 0.7 10*3/uL (0.11-0.8); Monocytes % 11.4 % (1.7-12.7); Neutrophils % 70.7 % (38.7-73.9); Platelet Count 54 T/CUMM (130-400); Red Blood Count 2.53 MC/CUMM (3.8-5.5); Red Cell Distribution Width 19.3 % (9.3-17.3); White Blood Count 5.9 T/CUMM (4-12)
[2022-01-27 19:20] LABS: Albumin 2.9 G/DL (3.4-5.0); Bilirubin,Total 2.1 MG/DL (0.20-1.00); Calcium 7.6 MG/DL (8.5-10.1); Potassium 2.7 MMOL/L (3.5-5.1); Total Protein 5.1 G/DL (6.4-8.2)
[2022-01-27] MEDS ORDERED: POTASSIUM CHLORIDE RIDER 20 MEQ/100 ML PREMIX IV STA (19:27)
[2022-01-27] MEDS ORDERED: KETOROLAC 30 MG/1 ML VIAL IV STA (19:30)
[2022-01-27] MEDS ORDERED: KETOROLAC 30 MG/1 ML VIAL ONE (19:31)
[2022-01-27 19:40] LABS: Band Neutrophils 6 % (0-10); Lymphocytes 12 % (20-55); Platelet Estimate Decreased; Poikilocytosis Slight; Total Cells Counted 100
[2022-01-27 19:41] LABS: Anisocytosis 1+; Ovalocytes Few; Tear Drop Cells Few
[2022-01-27] MEDS ORDERED: IMMUNE GLOBULIN 10% 40 GM in PREMIX 1 EACH IV ONE (19:56)
[2022-01-27] MEDS ORDERED: cefTRIAXone 1,000 MG in SODIUM CHLORIDE 0.9% 100 ML IV STA (19:59)
[2022-01-27] MEDS ORDERED: VANCOMYCIN INJ 1,000 MG in SODIUM CHLORIDE 0.9% 250 ML IV STA (20:05)
[2022-01-27] MEDS ORDERED: KETOROLAC 30 MG/1 ML VIAL IV PRN (20:06)
[2022-01-27] MEDS ORDERED: ONDANSETRON 4 MG/2 ML VIAL IV PRN (20:06)
[2022-01-27] MEDS: POTASSIUM CHLORIDE RIDER 10 MEQ/100 ML PREMIX IV SCH ×2 (20:15→21:27)
[2022-01-27] MEDS: SODIUM CHLORIDE 0.9% 1,000 ML IV SCH (21:30)
[2022-01-27] MEDS: DOCUSATE SODIUM 100 MG CAPSULE PO SCH (21:30)
[2022-01-28] MEDS ORDERED: cefTRIAXone 1,000 MG in SODIUM CHLORIDE 0.9% 100 ML IV SCH (08:00)
[2022-01-28] MEDS: POTASSIUM CHLORIDE INJ 40 MEQ in SODIUM CHLORIDE 0.45% 1,000 ML IV SCH ×2 (08:59→20:08)
[2022-01-28] MEDS: DOCUSATE SODIUM 100 MG CAPSULE PO SCH ×3 (09:00→20:08)
[2022-01-28] MEDS: PANTOPRAZOLE 40 MG TABLET PO SCH (09:00)
[2022-01-28] MEDS: SODIUM CHLORIDE 0.9% 1,000 ML IV SCH (09:19)
[2022-01-28] MEDS: VANCOMYCIN INJ 1,750 MG in SODIUM CHLORIDE 0.9% 500 ML IV SCH ×2 (10:40→20:43)
[2022-01-28] MEDS: ACETAMINOPHEN 325 MG TABLET PO PRN ×2 (11:32→20:42)
[2022-01-29] MEDS: DEXAMETHASONE 4 MG/1 ML VIAL IV SCH ×4 (00:40→17:50)
[2022-01-29] MEDS ORDERED: IBUPROFEN 400 MG TABLET PO PRN (01:03)
[2022-01-29] MEDS: POTASSIUM CHLORIDE INJ 40 MEQ in SODIUM CHLORIDE 0.45% 1,000 ML IV SCH ×3 (01:34→08:11)
[2022-01-29] MEDS: ACETAMINOPHEN 325 MG TABLET PO PRN (02:05)
[2022-01-29 05:23] LABS: Basophils % 0.2 % (0.0-0.8); Hemoglobin 7.6 GM/DL (14.0-18.0); Immature Granulocytes % 5.6 %; Immature Granulocytes Absolute 0.34 #; Lymphocytes # 0.6 10*3/uL (1.4-4.0); Lymphocytes % 10.1 % (21.2-54.2); Mean Corpuscular Volume 100.9 FL (87-102); Mean Platelet Volume 10.9 FL (9.6-12.0); Monocytes # 0.4 10*3/uL (0.11-0.8); Monocytes % 5.8 % (1.7-12.7); Neutrophils % 78.3 % (38.7-73.9); Platelet Count 42 T/CUMM (130-400); Red Blood Count 2.28 MC/CUMM (3.8-5.5); Red Cell Distribution Width 19.4 % (9.3-17.3)
[2022-01-29 05:43] LABS: Lymphocytes 8 % (20-55); Platelet Estimate Decreased; Total Cells Counted 100
[2022-01-29 05:44] LABS: Hypochromia Slight
[2022-01-29 05:47] LABS: Albumin 2.6 G/DL (3.4-5.0); Bilirubin,Direct 0.59 MG/DL (0.0-0.20); Bilirubin,Indirect 0.6 MG/DL (0.0-1.0); Bilirubin,Total 1.2 MG/DL (0.20-1.00); Calcium 7.9 MG/DL (8.5-10.1); Osmolality,Calculated 285.1 MOS/KG (273-304); Potassium 2.9 MMOL/L (3.5-5.1); Total Protein 5.4 G/DL (6.4-8.2)
[2022-01-29 05:48] LABS: Albumin 2.5 G/DL (3.4-5.0); Bilirubin,Total 1.3 MG/DL (0.20-1.00); Calcium 7.4 MG/DL (8.5-10.1); Osmolality,Calculated 288.8 MOS/KG (273-304)
[2022-01-29] MEDS: DOCUSATE SODIUM 100 MG CAPSULE PO SCH ×2 (08:02→21:27)
[2022-01-29] MEDS: MEROPENEM 500 MG in SODIUM CHLORIDE 0.9% 100 ML IV SCH ×3 (08:13→21:27)
[2022-01-29] MEDS: PANTOPRAZOLE 40 MG TABLET PO SCH (08:13)
[2022-01-29] MEDS: VANCOMYCIN INJ 1,750 MG in SODIUM CHLORIDE 0.9% 500 ML IV SCH ×2 (10:54→21:27)
[2022-01-29] MEDS ORDERED: SODIUM CHLORIDE 0.9% 1,000 ML IV PRN (10:58)
[2022-01-29] MEDS: POTASSIUM CHLORIDE 20 MEQ TABLET PO SCH ×2 (12:06→21:26)
[2022-01-30] MEDS: MEROPENEM 500 MG in SODIUM CHLORIDE 0.9% 100 ML IV SCH ×4 (01:04→19:20)
[2022-01-30] MEDS: DEXAMETHASONE 4 MG/1 ML VIAL IV SCH ×4 (01:04→19:17)
[2022-01-30 05:34] LABS: Basophils % 0.3 % (0.0-0.8); Hematocrit 24.3 VOL% (42.0-52.0); Hemoglobin 8.1 GM/DL (14.0-18.0); Immature Granulocytes % 6.9 %; Immature Granulocytes Absolute 0.49 #; Mean Corpuscular HGB Conc 33.3 GM/DL (32-36); Mean Corpuscular Volume 101.3 FL (87-102); Mean Platelet Volume 10.7 FL (9.6-12.0); Monocytes # 0.3 10*3/uL (0.11-0.8); Monocytes % 3.5 % (1.7-12.7); NRBC # 0.02 10*3/uL; Neutrophils % 75.3 % (38.7-73.9); Platelet Count 50 T/CUMM (130-400); Red Cell Distribution Width 18.8 % (9.3-17.3); White Blood Count 7.1 T/CUMM (4-12)
[2022-01-30 05:47] LABS: Albumin 2.7 G/DL (3.4-5.0); Bilirubin,Total 0.8 MG/DL (0.20-1.00); Calcium 8.5 MG/DL (8.5-10.1); Osmolality,Calculated 289.8 MOS/KG (273-304); Potassium 3.8 MMOL/L (3.5-5.1); Total Protein 5.8 G/DL (6.4-8.2)
[2022-01-30 06:02] LABS: Lymphocytes 19 % (20-55); Platelet Estimate Decreased; Total Cells Counted 100
[2022-01-30] MEDS: POTASSIUM CHLORIDE INJ 40 MEQ in SODIUM CHLORIDE 0.45% 1,000 ML IV SCH ×2 (06:12→19:20)
[2022-01-30] MEDS: VANCOMYCIN INJ 1,750 MG in SODIUM CHLORIDE 0.9% 500 ML IV SCH (09:22)
[2022-01-30] MEDS: DOCUSATE SODIUM 100 MG CAPSULE PO SCH ×2 (09:25→20:54)
[2022-01-30] MEDS: PANTOPRAZOLE 40 MG TABLET PO SCH (09:25)
[2022-01-30] MEDS: POTASSIUM CHLORIDE 20 MEQ TABLET PO SCH ×2 (09:25→20:53)
[2022-01-30] MEDS: cloNIDine 0.1 MG TABLET PO SCH ×2 (19:24→20:53)
[2022-01-30] MEDS: hydrALAZINE 25 MG TABLET PO SCH ×2 (19:24→20:53)
[2022-01-30] MEDS: ACETAMINOPHEN 325 MG TABLET PO PRN (21:52)
[2022-01-31] MEDS: MEROPENEM 500 MG in SODIUM CHLORIDE 0.9% 100 ML IV SCH ×4 (02:50→20:58)
[2022-01-31] MEDS: DEXAMETHASONE 4 MG/1 ML VIAL IV SCH ×2 (02:50→06:29)
[2022-01-31 05:23] LABS: Basophils % 0.4 % (0.0-0.8); Hematocrit 26.6 VOL% (42.0-52.0); Hemoglobin 8.7 GM/DL (14.0-18.0); Immature Granulocytes % 7.5 %; Immature Granulocytes Absolute 0.67 #; Lymphocytes # 0.6 10*3/uL (1.4-4.0); Lymphocytes % 6.7 % (21.2-54.2); Mean Corpuscular HGB Conc 32.7 GM/DL (32-36); Mean Corpuscular Volume 97.8 FL (87-102); Mean Platelet Volume 10.3 FL (9.6-12.0); Monocytes # 0.4 10*3/uL (0.11-0.8); Monocytes % 4.3 % (1.7-12.7); NRBC # 0.02 10*3/uL; Neutrophils % 81.1 % (38.7-73.9); Platelet Count 48 T/CUMM (130-400); Red Blood Count 2.72 MC/CUMM (3.8-5.5); Red Cell Distribution Width 20.5 % (9.3-17.3); White Blood Count 8.9 T/CUMM (4-12)
[2022-01-31 05:44] LABS: Albumin 2.4 G/DL (3.4-5.0); Calcium 8.1 MG/DL (8.5-10.1); Osmolality,Calculated 288.1 MOS/KG (273-304); Potassium 4.2 MMOL/L (3.5-5.1); Total Protein 5.2 G/DL (6.4-8.2)
[2022-01-31] MEDS: POTASSIUM CHLORIDE INJ 40 MEQ in SODIUM CHLORIDE 0.45% 1,000 ML IV SCH (06:43)
[2022-01-31 06:46] LABS: Anisocytosis 1+; Band Neutrophils 3 % (0-10); Lymphocytes 7 % (20-55); Macrocytosis Slight; Myelocytes 1 %; Platelet Estimate Decreased; Tear Drop Cells Few; Total Cells Counted 100
[2022-01-31] MEDS: cloNIDine 0.1 MG TABLET PO SCH ×2 (09:00→21:40)
[2022-01-31] MEDS: PANTOPRAZOLE 40 MG TABLET PO SCH (09:00)
[2022-01-31] MEDS: hydrALAZINE 25 MG TABLET PO SCH ×3 (09:01→21:40)
[2022-01-31] MEDS: DOCUSATE SODIUM 100 MG CAPSULE PO SCH ×2 (09:01→21:45)
[2022-01-31] MEDS: POTASSIUM CHLORIDE 20 MEQ TABLET PO SCH ×2 (09:01→21:40)
[2022-01-31] MEDS ORDERED: FUROSEMIDE 40 MG/4 ML VIAL IV ONE (10:20)
[2022-01-31] MEDS: BENZONATATE 100 MG CAPSULE PO SCH ×2 (17:16→21:40)
[2022-02-01] MEDS: MEROPENEM 500 MG in SODIUM CHLORIDE 0.9% 100 ML IV SCH ×4 (03:41→19:42)
[2022-02-01 05:15] LABS: Basophils % 0.2 % (0.0-0.8); Hematocrit 25.7 VOL% (42.0-52.0); Hemoglobin 8.8 GM/DL (14.0-18.0); Immature Granulocytes Absolute 0.75 #; Lymphocytes # 0.6 10*3/uL (1.4-4.0); Lymphocytes % 7.6 % (21.2-54.2); Mean Corpuscular HGB Conc 34.2 GM/DL (32-36); Monocytes # 0.3 10*3/uL (0.11-0.8); Monocytes % 3.8 % (1.7-12.7); NRBC # 0.05 10*3/uL; Neutrophils % 79.4 % (38.7-73.9); Platelet Count 46 T/CUMM (130-400); Red Blood Count 2.65 MC/CUMM (3.8-5.5); Red Cell Distribution Width 20.4 % (9.3-17.3); White Blood Count 8.3 T/CUMM (4-12)
[2022-02-01 05:33] LABS: Albumin 2.4 G/DL (3.4-5.0); Bilirubin,Total 1.1 MG/DL (0.20-1.00); Calcium 8.1 MG/DL (8.5-10.1); Osmolality,Calculated 293.7 MOS/KG (273-304); Potassium 3.9 MMOL/L (3.5-5.1); Total Protein 5.2 G/DL (6.4-8.2)
[2022-02-01 05:46] LABS: Anisocytosis 1+; Band Neutrophils 3 % (0-10); Lymphocytes 10 % (20-55); Platelet Estimate Decreased; Total Cells Counted 100
[2022-02-01 05:47] LABS: Macrocytosis Slight; Spherocytes Few; Tear Drop Cells Few
[2022-02-01] MEDS: cloNIDine 0.1 MG TABLET PO SCH ×2 (08:19→22:45)
[2022-02-01] MEDS: PANTOPRAZOLE 40 MG TABLET PO SCH (08:19)
[2022-02-01] MEDS: BENZONATATE 100 MG CAPSULE PO SCH ×3 (08:19→22:45)
[2022-02-01] MEDS: hydrALAZINE 25 MG TABLET PO SCH ×3 (08:19→22:46)
[2022-02-01] MEDS: DOCUSATE SODIUM 100 MG CAPSULE PO SCH ×2 (08:20→23:21)
[2022-02-01] MEDS ORDERED: FUROSEMIDE 40 MG/4 ML VIAL IV ONE (10:24)
[2022-02-01 10:51] LABS: Arterial Base Excess iSTAT 0 MMOL/L (-2.5-2.5); Arterial Bicarbonate iSTAT 22.3 MMOL/L (20-26); Arterial O2 Saturation iSTAT 96 % (95-100); Arterial PCO2 iSTAT 27 MM HG (35-48); Arterial PO2 iSTAT 73 MM HG (80-95); Arterial Total CO2 iSTAT 23 MMO/L (23-27)
[2022-02-01] MEDS: LOSARTAN 50 MG TABLET PO SCH (11:13)
[2022-02-01] MEDS: predniSONE 20 MG TABLET PO SCH (11:13)
[2022-02-01] MEDS: ACETAMINOPHEN 325 MG TABLET PO PRN (11:38)
[2022-02-01] MEDS: SULFAMETHOX/TRIMETHOPRIM 800-160 MG TABLET PO SCH ×2 (15:58→22:45)
[2022-02-01 18:56] LABS: M. Tuberculosis PCR Result Negative (Negative); M. Tuberculosis PCR Source SPUTUM
[2022-02-01] MEDS: ESCITALOPRAM 10 MG TABLET PO SCH (22:46)
[2022-02-02] MEDS: MEROPENEM 500 MG in SODIUM CHLORIDE 0.9% 100 ML IV SCH ×4 (01:23→20:00)
[2022-02-02 05:00] LABS: Basophils % 0.2 % (0.0-0.8); Hematocrit 24.7 VOL% (42.0-52.0); Hemoglobin 8.3 GM/DL (14.0-18.0); Immature Granulocytes % 9.8 %; Immature Granulocytes Absolute 0.55 #; Lymphocytes # 0.7 10*3/uL (1.4-4.0); Lymphocytes % 12.5 % (21.2-54.2); Mean Corpuscular HGB Conc 33.6 GM/DL (32-36); Mean Corpuscular Volume 97.2 FL (87-102); Monocytes # 0.3 10*3/uL (0.11-0.8); NRBC # 0.03 10*3/uL; Neutrophils % 71.5 % (38.7-73.9); Red Blood Count 2.54 MC/CUMM (3.8-5.5); White Blood Count 5.6 T/CUMM (4-12)
[2022-02-02 05:03] LABS: Platelet Count 36 T/CUMM (130-400)
[2022-02-02 05:16] LABS: Calcium 8.1 MG/DL (8.5-10.1); Osmolality,Calculated 290.8 MOS/KG (273-304); Potassium 3.9 MMOL/L (3.5-5.1)
[2022-02-02 05:33] LABS: Hypochromia Slight; Lymphocytes 11 % (20-55); Microcytosis Slight; Platelet Estimate Decreased; Total Cells Counted 100
[2022-02-02] MEDS ORDERED: SODIUM CHLORIDE 0.9% 1,000 ML IV PRN (07:52)
[2022-02-02] MEDS ORDERED: BARICITINIB 2 MG TABLET PO SCH (09:00)
[2022-02-02] MEDS: BENZONATATE 100 MG CAPSULE PO SCH ×3 (09:55→20:00)
[2022-02-02] MEDS: LEVOTHYROXINE 50 MCG TABLET PO SCH (09:55)
[2022-02-02] MEDS: SULFAMETHOX/TRIMETHOPRIM 800-160 MG TABLET PO SCH ×3 (09:55→20:00)
[2022-02-02] MEDS: predniSONE 20 MG TABLET PO SCH (09:55)
[2022-02-02] MEDS: hydrALAZINE 25 MG TABLET PO SCH ×3 (09:56→20:00)
[2022-02-02] MEDS: PANTOPRAZOLE 40 MG TABLET PO SCH (09:56)
[2022-02-02] MEDS: cloNIDine 0.1 MG TABLET PO SCH ×2 (09:56→20:00)
[2022-02-02] MEDS: LOSARTAN 50 MG TABLET PO SCH (09:56)
[2022-02-02] MEDS: DOCUSATE SODIUM 100 MG CAPSULE PO SCH ×2 (10:05→20:00)
[2022-02-02] MEDS: MICAFUNGIN 100 MG in SODIUM CHLORIDE 0.9% 100 ML IV SCH (12:24)
[2022-02-02] MEDS: ACETAMINOPHEN 325 MG TABLET PO PRN (13:17)
[2022-02-02] MEDS ORDERED: REMDESIVIR 200 MG in SODIUM CHLORIDE 0.9% 210 ML IV ONE (14:00)
[2022-02-02] MEDS ORDERED: IMMUNE GLOBULIN 10% 20 GM, IMMUNE GLOBULIN 10% 10 GM in PREMIX 1 EACH IV ONE (15:00)
[2022-02-02] MEDS: BARICITINIB 2 MG TABLET PO SCH (15:34)
[2022-02-02] MEDS: ESCITALOPRAM 10 MG TABLET PO SCH (20:00)
[2022-02-02] MEDS: BUDESONIDE/FORMOTEROL 80-4.5 INHALER 6.9 GM INH SCH (20:00)
[2022-02-03] MEDS: MEROPENEM 500 MG in SODIUM CHLORIDE 0.9% 100 ML IV SCH ×4 (03:10→21:05)
[2022-02-03 05:20] LABS: Basophils % 0.5 % (0.0-0.8); Hematocrit 23.1 VOL% (42.0-52.0); Hemoglobin 7.8 GM/DL (14.0-18.0); Immature Granulocytes % 16.4 %; Immature Granulocytes Absolute 0.68 #; Lymphocytes # 0.8 10*3/uL (1.4-4.0); Lymphocytes % 18.8 % (21.2-54.2); Mean Corpuscular HGB Conc 33.8 GM/DL (32-36); Mean Corpuscular Volume 97.9 FL (87-102); Monocytes # 0.3 10*3/uL (0.11-0.8); Monocytes % 6.3 % (1.7-12.7); NRBC # 0.02 10*3/uL; Red Blood Count 2.36 MC/CUMM (3.8-5.5); Red Cell Distribution Width 20.1 % (9.3-17.3); White Blood Count 4.2 T/CUMM (4-12)
[2022-02-03 05:24] LABS: Platelet Count 34 T/CUMM (130-400)
[2022-02-03 05:31] LABS: Calcium 8.1 MG/DL (8.5-10.1); Osmolality,Calculated 284.3 MOS/KG (273-304); Potassium 3.7 MMOL/L (3.5-5.1)
[2022-02-03 05:51] LABS: Lymphocytes 18 % (20-55); Platelet Estimate Decreased; Total Cells Counted 100
[2022-02-03] MEDS: LEVOTHYROXINE 50 MCG TABLET PO SCH (06:40)
[2022-02-03] MEDS ORDERED: MEPERIDINE 50 MG/1 ML VIAL IM ONE (07:00)
[2022-02-03] MEDS ORDERED: PROMETHAZINE 25 MG/1 ML VIAL IM ONE (07:00)
[2022-02-03] MEDS ORDERED: LIDOCAINE 1% 20 ML VIAL MISC INJ ONE (07:30)
[2022-02-03] MEDS ORDERED: MIDAZOLAM 2 MG/2 ML VIAL IV ONE (07:30)
[2022-02-03] MEDS ORDERED: LIDOCAINE 2% VISCOUS 100 ML BOTTLE SWISH/SPIT ONE (07:30)
[2022-02-03] MEDS ORDERED: LIDOCAINE 2% 20 ML VIAL RESP TX ONE (07:30)
[2022-02-03] MEDS ORDERED: SODIUM CHLORIDE 0.9% 1,000 ML IV PRN (09:10)
[2022-02-03] MEDS ORDERED: romiPLOStim 125 MCG VIAL SUBCUT ONE (09:10)
[2022-02-03] MEDS: hydrALAZINE 25 MG TABLET PO SCH ×3 (10:12→21:00)
[2022-02-03] MEDS: BARICITINIB 2 MG TABLET PO SCH (10:13)
[2022-02-03] MEDS: PANTOPRAZOLE 40 MG TABLET PO SCH (10:14)
[2022-02-03] MEDS: SULFAMETHOX/TRIMETHOPRIM 800-160 MG TABLET PO SCH ×3 (10:14→21:00)
[2022-02-03] MEDS: predniSONE 20 MG TABLET PO SCH (10:14)
[2022-02-03] MEDS: BENZONATATE 100 MG CAPSULE PO SCH ×3 (10:14→21:00)
[2022-02-03] MEDS: cloNIDine 0.1 MG TABLET PO SCH ×2 (10:15→21:00)
[2022-02-03] MEDS: LOSARTAN 50 MG TABLET PO SCH (10:15)
[2022-02-03] MEDS: BUDESONIDE/FORMOTEROL 80-4.5 INHALER 6.9 GM INH SCH ×2 (10:17→21:00)
[2022-02-03] MEDS: REMDESIVIR 100 MG in SODIUM CHLORIDE 0.9% 100 ML IV SCH (10:18)
[2022-02-03] MEDS: DOCUSATE SODIUM 100 MG CAPSULE PO SCH ×3 (10:32→21:00)
[2022-02-03] MEDS: MICAFUNGIN 100 MG in SODIUM CHLORIDE 0.9% 100 ML IV SCH (11:35)
[2022-02-03] MEDS: ESCITALOPRAM 10 MG TABLET PO SCH (21:00)
[2022-02-03 22:21] LABS: Fungitell Quantitative Value 94 pg/mL (<60 pg/mL)
[2022-02-04] MEDS: MEROPENEM 500 MG in SODIUM CHLORIDE 0.9% 100 ML IV SCH ×4 (01:45→18:51)
[2022-02-04 04:32] LABS: Basophils # 0.1 10*3/uL (0.0-0.2); Basophils % 0.9 % (0.0-0.8); Eosinophils % 0.2 % (0.00-10.9); Hematocrit 28.7 VOL% (42.0-52.0); Hemoglobin 9.5 GM/DL (14.0-18.0); Immature Granulocytes Absolute 0.82 #; Lymphocytes # 1.1 10*3/uL (1.4-4.0); Lymphocytes % 18.7 % (21.2-54.2); Mean Corpuscular HGB Conc 33.1 GM/DL (32-36); Mean Corpuscular Volume 96.6 FL (87-102); Mean Platelet Volume 10.9 FL (9.6-12.0); Monocytes # 0.5 10*3/uL (0.11-0.8); Monocytes % 7.7 % (1.7-12.7); Neutrophils % 58.5 % (38.7-73.9); Red Blood Count 2.97 MC/CUMM (3.8-5.5); Red Cell Distribution Width 20.8 % (9.3-17.3); White Blood Count 5.8 T/CUMM (4-12)
[2022-02-04 04:34] LABS: Platelet Count 39 T/CUMM (130-400)
[2022-02-04 04:47] LABS: Calcium 8.4 MG/DL (8.5-10.1); Osmolality,Calculated 287.1 MOS/KG (273-304); Potassium 4.4 MMOL/L (3.5-5.1)
[2022-02-04 04:55] LABS: Lymphocytes 16 % (20-55); Total Cells Counted 100
[2022-02-04 04:56] LABS: Hypochromia Slight; Platelet Estimate Decreased
[2022-02-04] MEDS: LEVOTHYROXINE 50 MCG TABLET PO SCH (09:54)
[2022-02-04] MEDS: DOCUSATE SODIUM 100 MG CAPSULE PO SCH ×2 (09:55→20:28)
[2022-02-04] MEDS: LOSARTAN 50 MG TABLET PO SCH (09:55)
[2022-02-04] MEDS: BARICITINIB 2 MG TABLET PO SCH (09:55)
[2022-02-04] MEDS: hydrALAZINE 25 MG TABLET PO SCH ×3 (09:55→20:28)
[2022-02-04] MEDS: cloNIDine 0.1 MG TABLET PO SCH ×2 (09:55→20:27)
[2022-02-04] MEDS: SULFAMETHOX/TRIMETHOPRIM 800-160 MG TABLET PO SCH ×3 (09:55→20:28)
[2022-02-04] MEDS: BUDESONIDE/FORMOTEROL 80-4.5 INHALER 6.9 GM INH SCH ×2 (09:56→20:28)
[2022-02-04] MEDS: REMDESIVIR 100 MG in SODIUM CHLORIDE 0.9% 100 ML IV SCH (09:56)
[2022-02-04] MEDS: BENZONATATE 100 MG CAPSULE PO SCH ×3 (09:56→20:27)
[2022-02-04] MEDS: methylPREDNISolone SOD SUC 40 MG/1 ML VIAL IV SCH ×2 (09:56→17:10)
[2022-02-04] MEDS: PANTOPRAZOLE 40 MG TABLET PO SCH (09:56)
[2022-02-04] MEDS: predniSONE 20 MG TABLET PO SCH (09:57)
[2022-02-04] MEDS: MICAFUNGIN 100 MG in SODIUM CHLORIDE 0.9% 100 ML IV SCH (11:52)
[2022-02-04] MEDS: ESCITALOPRAM 10 MG TABLET PO SCH (20:27)
[2022-02-05] MEDS: MEROPENEM 500 MG in SODIUM CHLORIDE 0.9% 100 ML IV SCH ×3 (00:57→15:08)
[2022-02-05] MEDS: methylPREDNISolone SOD SUC 40 MG/1 ML VIAL IV SCH ×3 (00:57→16:39)
[2022-02-05 06:11] LABS: Albumin 2.4 G/DL (3.4-5.0); Bilirubin,Direct 0.36 MG/DL (0.0-0.20); Bilirubin,Indirect 0.4 MG/DL (0.0-1.0); Bilirubin,Total 0.8 MG/DL (0.20-1.00); Total Protein 5.4 G/DL (6.4-8.2)
[2022-02-05] MEDS: LEVOTHYROXINE 50 MCG TABLET PO SCH (06:17)
[2022-02-05] MEDS: BARICITINIB 2 MG TABLET PO SCH (09:25)
[2022-02-05] MEDS: PANTOPRAZOLE 40 MG TABLET PO SCH (09:25)
[2022-02-05] MEDS: cloNIDine 0.1 MG TABLET PO SCH ×2 (09:25→21:40)
[2022-02-05] MEDS: LOSARTAN 50 MG TABLET PO SCH (09:25)
[2022-02-05] MEDS: hydrALAZINE 25 MG TABLET PO SCH ×3 (09:25→21:39)
[2022-02-05] MEDS: DOCUSATE SODIUM 100 MG CAPSULE PO SCH ×2 (09:25→21:39)
[2022-02-05] MEDS: SULFAMETHOX/TRIMETHOPRIM 800-160 MG TABLET PO SCH ×3 (09:25→21:39)
[2022-02-05] MEDS: BENZONATATE 100 MG CAPSULE PO SCH ×3 (09:26→21:39)
[2022-02-05] MEDS: REMDESIVIR 100 MG in SODIUM CHLORIDE 0.9% 100 ML IV SCH (09:26)
[2022-02-05] MEDS: BUDESONIDE/FORMOTEROL 80-4.5 INHALER 6.9 GM INH SCH ×2 (09:26→21:40)
[2022-02-05] MEDS: MICAFUNGIN 100 MG in SODIUM CHLORIDE 0.9% 100 ML IV SCH (11:35)
[2022-02-05] MEDS ORDERED: hydrALAZINE 20 MG/1 ML VIAL IV PRN (13:01)
[2022-02-05] MEDS: ESCITALOPRAM 10 MG TABLET PO SCH (21:39)
[2022-02-05 22:41] LABS: M. Tuberculosis PCR Result Negative (Negative); M. Tuberculosis PCR Source BRONCH WASH
[2022-02-06] MEDS: methylPREDNISolone SOD SUC 40 MG/1 ML VIAL IV SCH ×3 (02:15→16:45)
[2022-02-06 05:26] LABS: Basophils % 0.6 % (0.0-0.8); Hemoglobin 9.9 GM/DL (14.0-18.0); Immature Granulocytes % 10.5 %; Immature Granulocytes Absolute 0.71 #; Lymphocytes # 0.8 10*3/uL (1.4-4.0); Mean Corpuscular Volume 97.4 FL (87-102); Mean Platelet Volume 11.5 FL (9.6-12.0); Monocytes # 0.8 10*3/uL (0.11-0.8); Monocytes % 11.5 % (1.7-12.7); Neutrophils % 65.4 % (38.7-73.9); Platelet Count 50 T/CUMM (130-400); Red Blood Count 3.08 MC/CUMM (3.8-5.5); Red Cell Distribution Width 20.8 % (9.3-17.3); White Blood Count 6.8 T/CUMM (4-12)
[2022-02-06 05:45] LABS: Albumin 2.4 G/DL (3.4-5.0); Bilirubin,Direct 0.4 MG/DL (0.0-0.20); Bilirubin,Indirect 0.6 MG/DL (0.0-1.0); Total Protein 5.6 G/DL (6.4-8.2)
[2022-02-06 05:53] LABS: Calcium 8.1 MG/DL (8.5-10.1); Hypochromia Slight; Lymphocytes 20 % (20-55); Osmolality,Calculated 286.4 MOS/KG (273-304); Platelet Estimate Decreased; Potassium 4.8 MMOL/L (3.5-5.1); Total Cells Counted 100
[2022-02-06] MEDS: LEVOTHYROXINE 50 MCG TABLET PO SCH (06:07)
[2022-02-06] MEDS: LOSARTAN 50 MG TABLET PO SCH (09:03)
[2022-02-06] MEDS: BENZONATATE 100 MG CAPSULE PO SCH ×3 (09:03→21:41)
[2022-02-06] MEDS: PANTOPRAZOLE 40 MG TABLET PO SCH (09:03)
[2022-02-06] MEDS: REMDESIVIR 100 MG in SODIUM CHLORIDE 0.9% 100 ML IV SCH (09:03)
[2022-02-06] MEDS: cloNIDine 0.1 MG TABLET PO SCH ×2 (09:04→21:45)
[2022-02-06] MEDS: hydrALAZINE 25 MG TABLET PO SCH ×3 (09:04→21:42)
[2022-02-06] MEDS: BARICITINIB 2 MG TABLET PO SCH (09:04)
[2022-02-06] MEDS: BUDESONIDE/FORMOTEROL 80-4.5 INHALER 6.9 GM INH SCH ×2 (09:05→21:43)
[2022-02-06] MEDS: DOCUSATE SODIUM 100 MG CAPSULE PO SCH ×2 (09:18→21:42)
[2022-02-06] MEDS: SULFAMETHOX/TRIMETHOPRIM 800-160 MG TABLET PO SCH ×2 (11:17→21:41)
[2022-02-06] MEDS: MICAFUNGIN 100 MG in SODIUM CHLORIDE 0.9% 100 ML IV SCH (13:33)
[2022-02-06] MEDS: ESCITALOPRAM 10 MG TABLET PO SCH (21:42)
[2022-02-07] MEDS: methylPREDNISolone SOD SUC 40 MG/1 ML VIAL IV SCH ×3 (01:48→17:37)
[2022-02-07] MEDS: LEVOTHYROXINE 50 MCG TABLET PO SCH (06:13)
[2022-02-07 06:24] LABS: Calcium 8.5 MG/DL (8.5-10.1); Osmolality,Calculated 285.4 MOS/KG (273-304); Potassium 5.3 MMOL/L (3.5-5.1)
[2022-02-07 06:25] LABS: Basophils % 0.3 % (0.0-0.8); Hematocrit 28.8 VOL% (42.0-52.0); Hemoglobin 9.7 GM/DL (14.0-18.0); Immature Granulocytes % 10.2 %; Immature Granulocytes Absolute 0.59 #; Lymphocytes # 0.8 10*3/uL (1.4-4.0); Lymphocytes % 13.4 % (21.2-54.2); Mean Corpuscular HGB Conc 33.7 GM/DL (32-36); Mean Corpuscular Volume 95.7 FL (87-102); Monocytes # 0.6 10*3/uL (0.11-0.8); Monocytes % 9.5 % (1.7-12.7); NRBC # 0.02 10*3/uL; Neutrophils % 66.6 % (38.7-73.9); Red Blood Count 3.01 MC/CUMM (3.8-5.5); Red Cell Distribution Width 20.3 % (9.3-17.3); White Blood Count 5.8 T/CUMM (4-12)
[2022-02-07 06:26] LABS: Albumin 2.6 G/DL (3.4-5.0); Bilirubin,Direct 0.49 MG/DL (0.0-0.20); Bilirubin,Indirect 0.5 MG/DL (0.0-1.0); Total Protein 5.7 G/DL (6.4-8.2)
[2022-02-07 06:29] LABS: Platelet Count 39 T/CUMM (130-400)
[2022-02-07 06:46] LABS: Hypochromia 1+; Lymphocytes 11 % (20-55); Nucleated Red Blood Cells 1 (0-5); Platelet Estimate Decreased; Total Cells Counted 100
[2022-02-07] MEDS: cloNIDine 0.1 MG TABLET PO SCH ×2 (09:10→20:53)
[2022-02-07] MEDS: SULFAMETHOX/TRIMETHOPRIM 800-160 MG TABLET PO SCH ×2 (09:10→20:53)
[2022-02-07] MEDS: BARICITINIB 2 MG TABLET PO SCH (09:10)
[2022-02-07] MEDS: PANTOPRAZOLE 40 MG TABLET PO SCH (09:10)
[2022-02-07] MEDS: LOSARTAN 50 MG TABLET PO SCH (09:11)
[2022-02-07] MEDS: BENZONATATE 100 MG CAPSULE PO SCH ×3 (09:11→20:53)
[2022-02-07] MEDS: BUDESONIDE/FORMOTEROL 80-4.5 INHALER 6.9 GM INH SCH ×2 (09:12→20:53)
[2022-02-07] MEDS: hydrALAZINE 25 MG TABLET PO SCH ×3 (09:14→20:53)
[2022-02-07] MEDS: DOCUSATE SODIUM 100 MG CAPSULE PO SCH ×2 (10:34→20:54)
[2022-02-07] MEDS: MICAFUNGIN 100 MG in SODIUM CHLORIDE 0.9% 100 ML IV SCH (11:36)
[2022-02-07] MEDS: ESCITALOPRAM 10 MG TABLET PO SCH (20:53)
[2022-02-07] MEDS ORDERED: MAGNESIUM HYDROXIDE SUSP 30 ML UDCUP PO ONE (22:01)
[2022-02-08] MEDS: methylPREDNISolone SOD SUC 40 MG/1 ML VIAL IV SCH ×3 (00:33→17:00)
[2022-02-08 05:35] LABS: Basophils % 0.2 % (0.0-0.8); Hematocrit 28.1 VOL% (42.0-52.0); Hemoglobin 9.2 GM/DL (14.0-18.0); Lymphocytes # 0.6 10*3/uL (1.4-4.0); Mean Corpuscular HGB Conc 32.7 GM/DL (32-36); Mean Corpuscular Volume 97.2 FL (87-102); Monocytes # 0.5 10*3/uL (0.11-0.8); Monocytes % 11.8 % (1.7-12.7); Red Blood Count 2.89 MC/CUMM (3.8-5.5); White Blood Count 4.4 T/CUMM (4-12)
[2022-02-08 05:45] LABS: Platelet Count 33 T/CUMM (130-400)
[2022-02-08 05:53] LABS: Calcium 8.5 MG/DL (8.5-10.1); Osmolality,Calculated 284.5 MOS/KG (273-304); Potassium 5.2 MMOL/L (3.5-5.1)
[2022-02-08] MEDS: LEVOTHYROXINE 50 MCG TABLET PO SCH (06:00)
[2022-02-08 08:21] LABS: Lymphocytes 13 % (20-55); Total Cells Counted 100
[2022-02-08 08:22] LABS: Macrocytosis 1+; Ovalocytes Slight; Platelet Estimate Decreased
[2022-02-08] MEDS ORDERED: MAGNESIUM HYDROXIDE SUSP 30 ML UDCUP PO SCH (09:00)
[2022-02-08] MEDS: SULFAMETHOX/TRIMETHOPRIM 800-160 MG TABLET PO SCH ×2 (09:21→21:02)
[2022-02-08] MEDS: LOSARTAN 50 MG TABLET PO SCH (09:22)
[2022-02-08] MEDS: BARICITINIB 2 MG TABLET PO SCH (09:22)
[2022-02-08] MEDS: PANTOPRAZOLE 40 MG TABLET PO SCH (09:22)
[2022-02-08] MEDS: cloNIDine 0.1 MG TABLET PO SCH ×2 (09:22→21:02)
[2022-02-08] MEDS: BENZONATATE 100 MG CAPSULE PO SCH ×3 (09:22→21:02)
[2022-02-08] MEDS: BUDESONIDE/FORMOTEROL 80-4.5 INHALER 6.9 GM INH SCH ×2 (09:24→21:02)
[2022-02-08] MEDS: DOCUSATE SODIUM 100 MG CAPSULE PO SCH ×2 (09:28→21:03)
[2022-02-08] MEDS: ALBUTEROL/IPRATROPIUM 3 ML NEB RESP TX PRN ×2 (10:02→19:24)
[2022-02-08] MEDS ORDERED: MAGNESIUM HYDROXIDE SUSP 30 ML UDCUP PO PRN (11:00)
[2022-02-08] MEDS: MICAFUNGIN 100 MG in SODIUM CHLORIDE 0.9% 100 ML IV SCH (11:06)
[2022-02-08] MEDS: ESCITALOPRAM 10 MG TABLET PO SCH (21:02)
[2022-02-09] MEDS: methylPREDNISolone SOD SUC 40 MG/1 ML VIAL IV SCH ×3 (01:29→23:30)
[2022-02-09] MEDS: ALBUTEROL/IPRATROPIUM 3 ML NEB RESP TX PRN ×2 (05:00→16:05)
[2022-02-09 05:58] LABS: Calcium 8.5 MG/DL (8.5-10.1); Osmolality,Calculated 285.5 MOS/KG (273-304); Potassium 5.4 MMOL/L (3.5-5.1)
[2022-02-09] MEDS: LEVOTHYROXINE 50 MCG TABLET PO SCH (06:30)
[2022-02-09 06:48] LABS: Basophils % 0.2 % (0.0-0.8); Hematocrit 27.9 VOL% (42.0-52.0); Hemoglobin 9.1 GM/DL (14.0-18.0); Immature Granulocytes % 7.9 %; Immature Granulocytes Absolute 0.32 #; Lymphocytes # 0.5 10*3/uL (1.4-4.0); Lymphocytes % 13.1 % (21.2-54.2); Mean Corpuscular HGB Conc 32.6 GM/DL (32-36); Mean Corpuscular Volume 97.9 FL (87-102); Monocytes # 0.5 10*3/uL (0.11-0.8); Monocytes % 11.8 % (1.7-12.7); NRBC # 0.02 10*3/uL; Red Blood Count 2.85 MC/CUMM (3.8-5.5); Red Cell Distribution Width 19.6 % (9.3-17.3); White Blood Count 4.1 T/CUMM (4-12)
[2022-02-09 06:56] LABS: Platelet Count 33 T/CUMM (130-400)
[2022-02-09 07:22] LABS: Lymphocytes 13 % (20-55); Nucleated Red Blood Cells 1 (0-5); Platelet Estimate Decreased; Total Cells Counted 100
[2022-02-09] MEDS: BARICITINIB 2 MG TABLET PO SCH (11:02)
[2022-02-09] MEDS: SULFAMETHOX/TRIMETHOPRIM 800-160 MG TABLET PO SCH ×2 (11:02→22:00)
[2022-02-09] MEDS: PANTOPRAZOLE 40 MG TABLET PO SCH (11:03)
[2022-02-09] MEDS: LOSARTAN 50 MG TABLET PO SCH (11:03)
[2022-02-09] MEDS: BENZONATATE 100 MG CAPSULE PO SCH ×3 (11:03→22:00)
[2022-02-09] MEDS: DOCUSATE SODIUM 100 MG CAPSULE PO SCH ×2 (11:03→22:00)
[2022-02-09] MEDS: cloNIDine 0.1 MG TABLET PO SCH ×2 (11:04→22:00)
[2022-02-09] MEDS: BUDESONIDE/FORMOTEROL 80-4.5 INHALER 6.9 GM INH SCH ×2 (11:04→22:01)
[2022-02-09] MEDS: MICAFUNGIN 100 MG in SODIUM CHLORIDE 0.9% 100 ML IV SCH (11:20)
[2022-02-09] MEDS: ESCITALOPRAM 10 MG TABLET PO SCH (22:00)
[2022-02-10] MEDS: LEVOTHYROXINE 50 MCG TABLET PO SCH (06:16)
[2022-02-10] MEDS: ALBUTEROL/IPRATROPIUM 3 ML NEB RESP TX PRN (09:10)
[2022-02-10] MEDS: PANTOPRAZOLE 40 MG TABLET PO SCH (09:38)
[2022-02-10] MEDS: SULFAMETHOX/TRIMETHOPRIM 800-160 MG TABLET PO SCH (09:38)
[2022-02-10] MEDS: cloNIDine 0.1 MG TABLET PO SCH (09:39)
[2022-02-10] MEDS: BENZONATATE 100 MG CAPSULE PO SCH ×2 (09:39→15:36)
[2022-02-10] MEDS: BARICITINIB 2 MG TABLET PO SCH (09:39)
[2022-02-10] MEDS: DOCUSATE SODIUM 100 MG CAPSULE PO SCH (09:39)
[2022-02-10] MEDS: LOSARTAN 50 MG TABLET PO SCH (09:40)
[2022-02-10] MEDS: BUDESONIDE/FORMOTEROL 80-4.5 INHALER 6.9 GM INH SCH (09:41)
[2022-02-10] MEDS: methylPREDNISolone SOD SUC 40 MG/1 ML VIAL IV SCH (11:05)
[2022-02-10] MEDS: MICAFUNGIN 100 MG in SODIUM CHLORIDE 0.9% 100 ML IV SCH (11:07)
[2022-02-10 16:25] VITALS: BP 127/50
== END 2022-02-10 17:10 | disposition home health service (06) | DRG 177 ==
LOC: EDBD → EDUNIT# → N.ED 17:20 → N.EDINP 20:06 → N.TELEN 01-28 03:32
PROVIDERS: ADMIT Family Medicine; ATTEND Family Medicine